=== PATIENT | male | born 1960 | race Caucasian/White ===

== ENCOUNTER 2016-08-19 22:47 | Emergency (ER) | payer BC ==
[2016-08-20 01:58] VITALS: BP 201/79
== END 2016-08-20 02:26 | disposition left against medical advice (07) ==
LOC: ER 22:47
DX: Z53.21 Procedure and treatment not carried out due to patient leaving prior to being seen by health care provider (principal)

== ENCOUNTER 2016-11-03 11:19 | Emergency (ER) | payer BC ==
[2016-11-03 11:32] VITALS: BP 159/65
[2016-11-03] MEDS ORDERED: ASPIRIN 81 MG TABLET, CHEWABLE PO ONE (11:36)
[2016-11-03] MEDS ORDERED: ONDANSETRON 4 MG TAB.RAPDIS PO ONE (11:37)
--- NOTE | 2016-11-03 11:38 | ER Document Report ---
ED Medical Screen (RME) - General Stated Complaint: CHEST PAIN Mode of Arrival: Ambulatory Information source: Patient Notes: Patient presents to the emergency department with reports of chest pain midsternal nausea that started this morning. History of diabetes denies cardiac disease. I have greeted and performed a rapid initial assessment of this patient. A comprehensive ED assessment and evaluation of the patient, analysis of test results and completion of the medical decision making process will be conducted by additional ED providers. TRAVEL OUTSIDE OF THE [place] IN LAST 30 DAYS: No - Related Data Allergies/Adverse Reactions: No Known Allergies Allergy (Verified 11/03/16 11:35) Past Medical History - Past Medical History Cardiac Medical History: Reports: Hx Hypercholesterolemia, Hx Hypertension Pulmonary Medical History: Endocrine Medical History: Reports: Hx Diabetes Mellitus Type 2 GI Medical History: Reports: Hx Gastroesophageal Reflux Disease, Hx Hiatal Hernia, Hx Ulcer - Gastric ulcer Skin Medical History: Reports Hx Cellulitis Psychiatric Medical History: Reports: Hx Anxiety Past Surgical History: Reports: Hx Cardiac Catheterization. Denies: Hx Pacemaker - Immunizations Immunizations up to date: Yes Hx Diphtheria, Pertussis, Tetanus Vaccination: Yes Physical Exam - Vital signs Vitals: Temp Pulse Resp BP Pulse Ox 97.9 F 89 18 159/65 H 97 11/03/16 11:31 11/03/16 11:31 11/03/16 11:31 11/03/16 11:31 11/03/16 11:31 Course - Vital Signs Vital signs: Temp Pulse Resp BP Pulse Ox 97.9 F 89 18 159/65 H 97 11/03/16 11:31 11/03/16 11:31 11/03/16 11:31 11/03/16 11:31 11/03/16 11:31
[2016-11-03 12:45] LABS: APPEARANCE,URINE CLEAR; BILIRUBIN,URINE NEGATIVE (NEGATIVE); GLUCOSE, URINE >=500 mg/dL (NEGATIVE); KETONES,URINE NEGATIVE (NEGATIVE); LEUKOCYTE ESTERASE,URINE NEGATIVE (NEGATIVE); NITRITE,URINE NEGATIVE (NEGATIVE); PROTEIN,URINE NEGATIVE (NEGATIVE); UROBILINOGEN,URINE NEGATIVE mg/dL (<2.0)
[2016-11-03 12:46] LABS: ABSOLUTE BASOPHILS # (AUTO) 0.1 10^3/uL (0.0-0.2); ABSOLUTE EOSINOPHILS # (AUTO) 0.3 10^3/uL (0.0-0.6); ABSOLUTE LYMPHOCYTES (AUTO) 4.4 10^3/uL (0.5-4.7); ABSOLUTE MONOCYTES (AUTO) 0.7 10^3/uL (0.1-1.4); ABSOLUTE NEUT (AUTO) 4.5 10^3/uL (1.7-8.2); BASOPHILS % (AUTO) 0.6 % (0-2); EOSINOPHILS % (AUTO) 2.8 % (0-6); HEMATOCRIT 45.7 % (37.9-51.0); HEMOGLOBIN 15.4 g/dL (13.5-17.0); HGB HCT DIFFERENCE 0.5; LYMPHOCYTES % (AUTO) 43.6 % (13-45); MEAN CORPUSCULAR HEMOGLOBIN 29.9 pg (27.0-33.4); MEAN CORPUSCULAR HGB CONC 33.8 g/dL (32.0-36.0); MEAN CORPUSCULAR VOLUME 88 fl (80-97); MONOCYTES % (AUTO) 7.4 % (3-13); RED BLOOD COUNT 5.17 10^6/uL (4.35-5.55); RED CELL DISTRIBUTION WIDTH 14.9 % (11.5-14.0); SEGMENTED NEUTROPHILS % (AUTO) 45.6 % (42-78)
[2016-11-03 13:01] LABS: ALANINE AMINOTRANSFERASE 27 U/L (21-72); ALBUMIN 4.3 g/dL (3.5-5.0); ALKALINE PHOSPHATASE 76 U/L (38-126); ANION GAP 12 (5-19); ASPARTATE AMINO TRANSFERASE 20 U/L (17-59); BILIRUBIN,DIRECT 0.2 mg/dL (0.0-0.4); BILIRUBIN,TOTAL 0.4 mg/dL (0.2-1.3); BLOOD UREA NITROGEN 13 mg/dL (7-20); CALCIUM 9.5 mg/dL (8.4-10.2); CARBON DIOXIDE 27 mmol/L (22-30); CHLORIDE 104 mmol/L (98-107); CREATINE KINASE 83 U/L (55-170); CREATININE RESULT 0.75 mg/dL (0.52-1.25); GLUCOSE 118 mg/dL (75-110); LIPASE 66.8 U/L (23-300); POTASSIUM 4.3 mmol/L (3.6-5.0); SODIUM 142.8 mmol/L (137-145); TOTAL PROTEIN 7.6 g/dL (6.3-8.2)
[2016-11-03 13:13] LABS: CREATINE KINASE MB 0.33 ng/mL (<4.55)
[2016-11-03 13:18] LABS: TROPONIN I < 0.012 ng/mL
--- NOTE | 2016-11-03 16:04 | EKG REPORT ---
SEVERITY:- NORMAL ECG - SINUS RHYTHM : Confirmed by: Luis Mary 03-Nov-2016 16:03:58
== END 2016-11-03 14:50 | disposition left against medical advice (07) ==
LOC: ER 11:19
DX: R07.9 Chest pain, unspecified (principal); R11.0 Nausea; I10 Essential (primary) hypertension; E11.9 Type 2 diabetes mellitus without complications; Z53.20 Procedure and treatment not carried out because of patient's decision for unspecified reasons
CPT/HCPCS: 93005; 99281; 36415; 82553; 82550; 83690; 85025; 80053; 81001; 84484; 71020; 93010; S0119

== ENCOUNTER 2017-01-07 15:18 | Emergency (ER) | payer BC ==
--- NOTE | 2017-01-07 16:06 | ER Document Report ---
ED Medical Screen (RME) - General Stated Complaint: POSSIBLE PALPITATIONS Time Seen by Provider: 01/07/17 16:03 Notes: 56 yo male c/o lightheaded, SOB and chest pressure x 1 hr. pain started while watching TV. pt had NSTEMI 2 weeks ago, stent placed in circumflex. + hx/o DM , HTN TRAVEL OUTSIDE OF THE [place] IN LAST 30 DAYS: No - Related Data Allergies/Adverse Reactions: No Known Allergies Allergy (Verified 11/03/16 11:35) Past Medical History - Past Medical History Cardiac Medical History: Reports: Hx Hypercholesterolemia, Hx Hypertension Pulmonary Medical History: Neurological Medical History: Endocrine Medical History: Reports: Hx Diabetes Mellitus Type 2 Renal/ Medical History: Denies: Hx Peritoneal Dialysis GI Medical History: Reports: Hx Gastroesophageal Reflux Disease, Hx Hiatal Hernia, Hx Ulcer - Gastric ulcer Musculoskeltal Medical History: Skin Medical History: Reports Hx Cellulitis Psychiatric Medical History: Reports: Hx Anxiety Past Surgical History: Reports: Hx Cardiac Catheterization. Denies: Hx Pacemaker - Immunizations Immunizations up to date: Yes Hx Diphtheria, Pertussis, Tetanus Vaccination: Yes
[2017-01-07 16:43] LABS: ABSOLUTE BASOPHILS # (AUTO) 0.1 10^3/uL (0.0-0.2); ABSOLUTE EOSINOPHILS # (AUTO) 0.4 10^3/uL (0.0-0.6); ABSOLUTE LYMPHOCYTES (AUTO) 3.5 10^3/uL (0.5-4.7); ABSOLUTE NEUT (AUTO) 6.4 10^3/uL (1.7-8.2); BASOPHILS % (AUTO) 1.2 % (0-2); EOSINOPHILS % (AUTO) 3.1 % (0-6); HEMATOCRIT 44.7 % (37.9-51.0); HEMOGLOBIN 14.7 g/dL (13.5-17.0); HGB HCT DIFFERENCE -0.6; LYMPHOCYTES % (AUTO) 30.5 % (13-45); MEAN CORPUSCULAR HEMOGLOBIN 28.9 pg (27.0-33.4); MEAN CORPUSCULAR HGB CONC 32.8 g/dL (32.0-36.0); MEAN CORPUSCULAR VOLUME 88 fl (80-97); MONOCYTES % (AUTO) 8.7 % (3-13); RED BLOOD COUNT 5.09 10^6/uL (4.35-5.55); RED CELL DISTRIBUTION WIDTH 14.5 % (11.5-14.0); SEGMENTED NEUTROPHILS % (AUTO) 56.5 % (42-78); WHITE BLOOD COUNT 11.4 10^3/uL (4.0-10.5)
--- NOTE | 2017-01-07 16:44 | RADIOLOGY REPORT (SQ) ---
EXAM DESCRIPTION: CHEST PA/LAT COMPLETED DATE/TIME: 01/07/2017 4:35 pm REASON FOR STUDY: chest pain COMPARISON: 11/03/2016. EXAM PARAMETERS: NUMBER OF VIEWS: two views TECHNIQUE: Digital Frontal and Lateral radiographic views of the chest acquired. RADIATION DOSE: NA LIMITATIONS: none FINDINGS: LUNGS AND PLEURA: No opacities, masses or pneumothorax. No pleural effusion. MEDIASTINUM AND HILAR STRUCTURES: No masses or contour abnormalities. HEART AND VASCULAR STRUCTURES: Heart normal size. No evidence for failure. BONES: No acute findings. HARDWARE: None in the chest. OTHER: No other significant finding. IMPRESSION: NO SIGNIFICANT RADIOGRAPHIC FINDING IN THE CHEST. TECHNICAL DOCUMENTATION: JOB ID: [id number] [employer]- All Rights Reserved
[2017-01-07 16:50] LABS: PROTHROMBIN TIME 12.5 SEC (11.4-15.4)
[2017-01-07 17:04] LABS: ALANINE AMINOTRANSFERASE 61 U/L (21-72); ALBUMIN 4.2 g/dL (3.5-5.0); ALKALINE PHOSPHATASE 118 U/L (38-126); ANION GAP 12 (5-19); ASPARTATE AMINO TRANSFERASE 24 U/L (17-59); BILIRUBIN,DIRECT 0.3 mg/dL (0.0-0.4); BILIRUBIN,TOTAL 0.5 mg/dL (0.2-1.3); BLOOD UREA NITROGEN 10 mg/dL (7-20); CALCIUM 9.5 mg/dL (8.4-10.2); CARBON DIOXIDE 22 mmol/L (22-30); CHLORIDE 102 mmol/L (98-107); CREATINE KINASE 61 U/L (55-170); CREATININE RESULT 0.62 mg/dL (0.52-1.25); GLUCOSE 231 mg/dL (75-110); LIPASE 71.5 U/L (23-300); POTASSIUM 4.5 mmol/L (3.6-5.0); TOTAL PROTEIN 7.5 g/dL (6.3-8.2)
[2017-01-07 17:17] LABS: APPEARANCE,URINE CLEAR; BILIRUBIN,URINE NEGATIVE (NEGATIVE); GLUCOSE, URINE 50 mg/dL (NEGATIVE); KETONES,URINE NEGATIVE (NEGATIVE); LEUKOCYTE ESTERASE,URINE NEGATIVE (NEGATIVE); NITRITE,URINE NEGATIVE (NEGATIVE); PROTEIN,URINE NEGATIVE (NEGATIVE); URINE SPECIFIC GRAVITY 1.013; UROBILINOGEN,URINE NEGATIVE mg/dL (<2.0)
[2017-01-07 17:19] LABS: CREATINE KINASE MB 0.34 ng/mL (<4.55)
[2017-01-07 17:20] LABS: TROPONIN I < 0.012 ng/mL
[2017-01-07] MEDS ORDERED: ASPIRIN 325 MG TABLET PO ONE (17:55)
--- NOTE | 2017-01-07 17:55 | ER Document Report ---
ED Cardiac - General Chief Complaint: Chest Pain Stated Complaint: POSSIBLE PALPITATIONS Time Seen by Provider: 01/07/17 16:03 Notes: Patient is a 56-year-old male, past medical history CAD status post one cardiac stent on 12/29 at [facility], HTN, anxiety, presents with a diffuse chest tightness , worse substernally, for the past day. He is also feeling palpitations and can feel an extra beat when he is having a PVC on the monitor. Pt is a tank cleaner. He had a stent placed in his left circumflex artery last week and is taking Brilinta for his stent. He did not take his ASA today yet. Denies back pain, numbness, tingling, diaphoresis, leg swelling, cough, hemoptysis, nausea or vomiting. TRAVEL OUTSIDE OF THE [place] IN LAST 30 DAYS: No - Related Data Allergies/Adverse Reactions: No Known Allergies Allergy (Verified 11/03/16 11:35) Past Medical History - General Information source: Patient - Social History Smoking Status: Former Smoker Chew tobacco use (# tins/day): No Frequency of alcohol use: None Drug Abuse: None Family History: CAD Patient has suicidal ideation: No Patient has homicidal ideation: No - Past Medical History Cardiac Medical History: Reports: Hx Hypercholesterolemia, Hx Hypertension Pulmonary Medical History: Neurological Medical History: Endocrine Medical History: Reports: Hx Diabetes Mellitus Type 2 Renal/ Medical History: Denies: Hx Peritoneal Dialysis GI Medical History: Reports: Hx Gastroesophageal Reflux Disease, Hx Hiatal Hernia, Hx Ulcer - Gastric ulcer Musculoskeltal Medical History: Skin Medical History: Reports Hx Cellulitis Psychiatric Medical History: Reports: Hx Anxiety Past Surgical History: Reports: Hx Cardiac Catheterization. Denies: Hx Pacemaker - Immunizations Immunizations up to date: Yes Hx Diphtheria, Pertussis, Tetanus Vaccination: Yes Review of Systems - Review of Systems Notes: REVIEW OF SYSTEMS: CONSTITUTIONAL: -fevers, -chills EENT: -eye pain, -difficulty swallowing, -nasal congestion CARDIOVASCULAR: +chest pain, -syncope. RESPIRATORY: -cough, -SOB GASTROINTESTINAL: -abdominal pain, - nausea, -vomiting, -diarrhea GENITOURINARY: -dysuria, -hematuria MUSCULOSKELETAL: -back pain, -neck pain SKIN: -rash or skin lesions. HEMATOLOGIC: -easy bruising or bleeding. LYMPHATIC: -swollen, enlarged glands. NEUROLOGICAL: -altered mental status or loss of consciousness, -headache, - neurologic symptoms PSYCHIATRIC: -anxiety, -depression. ALL OTHER SYSTEMS REVIEWED AND NEGATIVE. Physical Exam - Vital signs Vitals: Temp Pulse Resp BP Pulse Ox 98.4 F 93 17 180/72 H 99 01/07/17 16:01 01/07/17 16:01 01/07/17 16:01 01/07/17 16:01 01/07/17 16:01 - Notes Notes: PHYSICAL EXAMINATION: GENERAL: Well-appearing, well-nourished and in no acute distress. HEAD: Atraumatic, normocephalic. EYES: Pupils equal round and reactive to light, extraocular movements intact, sclera anicteric, conjunctiva are normal. ENT: nares patent, oropharynx clear without exudates. Moist mucous membranes. NECK: Normal range of motion, supple without lymphadenopathy LUNGS: Breath sounds clear to auscultation bilaterally and equal. No wheezes rales or rhonchi. HEART: Regular rate and rhythm without murmurs ABDOMEN: Soft, nontender, normoactive bowel sounds. No guarding, no rebound. No masses appreciated. EXTREMITIES: Normal range of motion, no pitting or edema. No cyanosis. NEUROLOGICAL: Cranial nerves grossly intact. Normal speech, normal gait. Normal sensory and motor exams. PSYCH: Normal mood, normal affect. SKIN: Warm, Dry, normal turgor, no rashes or lesions noted. Course - Re-evaluation Re-evalutation: Pt with HEART score 3 (age=1, risk factors=2). Symptoms atypical for aortic dissection or PE at this time. 2 sets of troponins and 2 EKGs do not show any dynamic changes. 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 Offered admission, but patient said that he will follow-up with the new autos delivery driver tomorrow. Given strict return precautions and he understands. - Vital Signs Vital signs: Temp Pulse Resp BP Pulse Ox 98.3 F 77 15 120/65 100 01/07/17 19:00 01/07/17 19:00 01/07/17 20:01 01/07/17 20:01 01/07/17 20:01 - Laboratory Result Diagrams: 01/07/17 16:25 01/07/17 16:25 Laboratory results interpreted by me: 01/07/17 01/07/17 01/07/17 16:25 16:25 16:50 WBC 11.4 H RDW 14.5 H Sodium 136.0 L Glucose 231 H Urine Glucose (UA) 50 H - Diagnostic Test Radiology reviewed: Image reviewed, Reports reviewed Radiology results interpreted by me: CXR: NAD - EKG Interpretation by Me EKG shows normal: Sinus rhythm, Grandin, Intervals, QRS Complexes, ST-T Waves Rate: Normal Discharge - Discharge Clinical Impression: Chest pain Qualifiers: Chest pain type: unspecified Qualified Code(s): R07.9 - Chest pain, unspecified Condition: Stable Disposition: HOME, SELF-CARE Additional Instructions: You must follow-up with your new autos delivery driver tomorrow as scheduled. If you have worsening chest pain or any other concerns, return immediately to the emergency room. CHEST PAIN OF UNCLEAR CAUSE: The exact cause of your chest pain isn't clear. Fortunately, there is no evidence of a dangerous medical condition. Further testing may be required to find the source of the pain. Most often, we find that this pain is coming from the chest wall -- the muscles or rib joints in the chest. But chest pain can come from the lung and lung lining, the esophagus, the heart valves or heart lining, and even the stomach or gallbladder. Rest. Eat lightly until the pain is gone. We may prescribe medicine for pain and inflammation. You should call the physician immediately if the pain radiates to the shoulder, jaw or arms; if you start to run a fever or develop a cough; or if you develop shortness of breath, or other new or alarming symptoms. NORMAL EXAM AND WORKUP: At this time, your examination and workup show no significant abnormality. No significant abnormal physical findings were noted. All laboratory, EKG, and imaging (x-ray, CT scans, ultrasound) studies that were ordered show no significant abnormality. Although your examination and all studies that were ordered showed no significant abnormal finding, there are no examinations and no studies that are 100% accurate. There is always the possibility that some abnormality could exist and not be detected with physical examination or within the limits and capabilities of laboratory and other studies. You should return or follow up as you were instructed on your visit today for further evaluation if your symptoms do not resolve. CHEST WALL PAIN: Your chest pain may be coming from the chest wall. This is often caused by straining the muscles or joints in the chest during physical activity, direct trauma, coughing, or vigorous vomiting. Persons with arthritis are especially prone to this type of pain, due to inflammation of the cartilage joints near the breast bone. Occasionally, no cause can be found. Rest from strenuous physical activity. This kind of chest pain is usually made worse by movement of the chest. Depending on the symptoms, we may prescribe medicine for pain, muscle relaxation, and antiinflammatory effects. If the pain is new, and seems to be due to muscle strain, cold packs can help. Otherwise, apply gentle warmth to the painful area for 15 minutes every hour or two. You should call contact the doctor immediately if things change. Further evaluation is needed if you develop a fever or cough, if the nature of the pain changes, or if you become short of breath. ANGINA EPISODE: Your physician has diagnosed the pain you experienced as an episode of angina. Angina occurs when a portion of the heart muscle temporarily lacks oxygen. It does not cause any permanent heart damage, but serves as a warning. Hospitalization is not necessary now. Evaluation of your cardiac condition , and medical therapy for angina will be necessary. It's important you be sure to keep all appointments and take medication exactly as prescribed. Angina is usually treated with a type of "nitrate" medication. This is available as ointment, pills, or sublingual (under the tongue) tablets. Depending on your clinical situation, other medications may be added to help control angina. These may include beta blockers or calcium blockers. If episodes of angina are occurring with increased frequency, or if chest pain lasts longer than 15 minutes or does not respond to nitroglycerin, you must seek emergency medical care immediately. ASPIRIN: Aspirin has been shown to have a beneficial effect on blood circulation by reducing the clotting effect of platelets in the blood. These beneficial effects can be achieved by taking just a single baby (81 mg) aspirin a day. It is recommended that any person over the age of forty take a single baby aspirin every day for heart and brain circulation, unless you are allergic to aspirin or have some significant bleeding disorder. It is strongly recommended that people who have proven cardiac or blood circulation disturbances should take a baby aspirin every day. NITRATES: Nitroglycerin and related longer-acting nitrate medications are used to prevent or treat attacks of angina. These medicines dilate blood vessels, decreasing the work of the heart, and improving its supply of oxygen. Many different forms are available, including sublingual tablets (used under the tongue), sprays, skin patches, and long-acting pills. If the particular form of medication you have been given is not working well for you, contact your doctor. Long-acting forms: Take exactly as prescribed. Sudden stopping of medication can provoke increased attacks. Sublingual tabs or spray: A headache will usually occur with use. Sit or lie while waiting for the pain to go away. If angina doesn't respond to three doses (five minutes apart), call for emergency assistance. FOLLOW-UP CARE: If you have been referred to a physician for follow-up care, call the physician s office for an appointment as you were instructed or within the next two days. If you experience worsening or a significant change in your symptoms, notify the physician immediately or return to the Emergency Department at any time for re-evaluation. Referrals: REBEKAH WAY MD [Primary Care Provider] - Follow up as needed
[2017-01-07] MEDS: NITROGLYCERIN 0.4 MG/TAB 25 TAB/BOTTLE SL PRN ×2 (18:21→18:35)
[2017-01-07] MEDS ORDERED: ACETAMINOPHEN 325 MG TABLET PO ONE (18:37)
[2017-01-08 05:00] VITALS: BP 124/58
--- NOTE | 2017-01-08 09:57 | EKG REPORT ---
SEVERITY:- NORMAL ECG - SINUS RHYTHM : Confirmed by: Luis Mary 08-Jan-2017 09:56:45
--- NOTE | 2017-01-08 09:57 | EKG REPORT ---
SEVERITY:- NORMAL ECG - SINUS RHYTHM : Confirmed by: Luis Mary 08-Jan-2017 09:56:49
== END 2017-01-07 21:00 | disposition home or self-care (01) ==
LOC: ER 15:18
DX: R07.89 Other chest pain (principal); I25.10 Atherosclerotic heart disease of native coronary artery without angina pectoris; I10 Essential (primary) hypertension; I49.3 Ventricular premature depolarization; E11.9 Type 2 diabetes mellitus without complications; Z98.61 Coronary angioplasty status; Z87.891 Personal history of nicotine dependence; Z82.49 Family history of ischemic heart disease and other diseases of the circulatory system
CPT/HCPCS: 36415; 71020; 80053; 81001; 82550; 82553; 83690; 84484; 85025; 85610; 93005; 93010; 99285

== ENCOUNTER 2017-06-26 20:28 | Inpatient (IN) | payer BC ==
[2017-06-26] MEDS ORDERED: PIPERACILLIN/TAZOBACTAM 3.375 GM VIAL IV ONE (20:49)
[2017-06-26] MEDS ORDERED: VANCOMYCIN HCL INJ 1000 MG VIAL IV ONE ×2 (20:49→22:58)
[2017-06-26] MEDS ORDERED: HYDROCODONE/ACETAMINOPHEN 5-325 MG TABLET PO ONE (20:49)
--- NOTE | 2017-06-26 21:02 | ER Document Report ---
ED Medical Screen (RME) - General Mode of Arrival: Ambulatory Information source: Patient TRAVEL OUTSIDE OF THE [place] IN LAST 30 DAYS: No - General Chief Complaint: Wound Infection Stated Complaint: RIGHT THIGH PAIN Time Seen by Provider: 06/26/17 20:42 Notes: Patient is a 57 year old male with a history of [place] presents to emergency department complaining of right thigh pain. Patient states that he gave himself a testosterone shot this week. Patient states that he saw Dr. Paulino who had given him Rocephin and Levoxacin for his symptoms which did not help. Patient states he is currently taking Plavix and Aspirin. (SARTHAK,TAMPAT) - Related Data Allergies/Adverse Reactions: No Known Allergies Allergy (Verified 11/03/16 11:35) Past Medical History - General Information source: Patient - Social History Frequency of alcohol use: None Drug Abuse: None - Past Medical History Cardiac Medical History: Reports: Hx Hypercholesterolemia, Hx Hypertension Pulmonary Medical History: Neurological Medical History: Endocrine Medical History: Reports: Hx Diabetes Mellitus Type 2 Renal/ Medical History: Denies: Hx Peritoneal Dialysis GI Medical History: Reports: Hx Gastroesophageal Reflux Disease, Hx Hiatal Hernia, Hx Ulcer - Gastric ulcer Musculoskeltal Medical History: Skin Medical History: Reports Hx Cellulitis Psychiatric Medical History: Reports: Hx Anxiety Past Surgical History: Reports: Hx Cardiac Catheterization. Denies: Hx Pacemaker - Immunizations Immunizations up to date: Yes Hx Diphtheria, Pertussis, Tetanus Vaccination: Yes Review of Systems - Review of Systems Constitutional: No symptoms reported EENT: No symptoms reported Cardiovascular: No symptoms reported Respiratory: No symptoms reported Gastrointestinal: No symptoms reported Genitourinary: No symptoms reported Male Genitourinary: No symptoms reported Musculoskeletal: Other - Pain in right thigh Skin: No symptoms reported Hematologic/Lymphatic: No symptoms reported Neurological/Psychological: No symptoms reported -: Yes All other systems reviewed and negative Physical Exam - General General appearance: Appears well, Alert In distress: None - HEENT Head: Normocephalic, Atraumatic Pupils: PERRL - Extremities Thigh: Other - Right anterior thigh swollen and erythematous. Tender to palpation. Firm without fluctuance or SubQ emphysema. - Psychological Associated symptoms: Normal affect, Normal mood - Skin Skin Temperature: Warm Skin Moisture: Dry - Vital signs Vitals: Temp Pulse Resp BP Pulse Ox 98.9 F 111 H 16 174/51 H 99 11/17/17 20:34 06/26/17 20:34 06/26/17 20:34 06/26/17 20:34 06/26/17 20:34 - Vital Signs Vital signs: Temp Pulse Resp BP Pulse Ox 98.9 F 111 H 16 174/51 H 99 06/26/17 20:34 06/26/17 20:34 06/26/17 20:34 06/26/17 20:34 06/26/17 20:34 Scribe Documentation - Scribe Written by Yaakov:: Yaakov Myers, 06/26/2017 acting as scribe for :: Tiffanie
[2017-06-26 21:40] LABS: ABSOLUTE BASOPHILS # (AUTO) 0.1 10^3/uL (0.0-0.2); ABSOLUTE EOSINOPHILS # (AUTO) 0.3 10^3/uL (0.0-0.6); ABSOLUTE LYMPHOCYTES (AUTO) 4.4 10^3/uL (0.5-4.7); ABSOLUTE NEUT (AUTO) 9.5 10^3/uL (1.7-8.2); BASOPHILS % (AUTO) 0.7 % (0-2); HEMATOCRIT 44.5 % (37.9-51.0); HGB HCT DIFFERENCE 0.5; LYMPHOCYTES % (AUTO) 28.5 % (13-45); MEAN CORPUSCULAR HEMOGLOBIN 29.5 pg (27.0-33.4); MEAN CORPUSCULAR HGB CONC 33.8 g/dL (32.0-36.0); MEAN CORPUSCULAR VOLUME 87 fl (80-97); MONOCYTES % (AUTO) 6.5 % (3-13); RED CELL DISTRIBUTION WIDTH 14.5 % (11.5-14.0); SEGMENTED NEUTROPHILS % (AUTO) 62.3 % (42-78); WHITE BLOOD COUNT 15.3 10^3/uL (4.0-10.5)
[2017-06-26 21:43] LABS: PROTHROMBIN TIME 12.8 SEC (11.4-15.4)
[2017-06-26 21:44] LABS: PARTIAL THROMBOPLASTIN TIME 32.8 SEC (23.5-35.8)
[2017-06-26 21:54] LABS: ALANINE AMINOTRANSFERASE 39 U/L (21-72); ALBUMIN 4.3 g/dL (3.5-5.0); ALKALINE PHOSPHATASE 91 U/L (38-126); ANION GAP 17 (5-19); ASPARTATE AMINO TRANSFERASE 23 U/L (17-59); BILIRUBIN,DIRECT 0.5 mg/dL (0.0-0.4); BILIRUBIN,TOTAL 0.7 mg/dL (0.2-1.3); BLOOD UREA NITROGEN 17 mg/dL (7-20); CALCIUM 9.4 mg/dL (8.4-10.2); CARBON DIOXIDE 25 mmol/L (22-30); CHLORIDE 96 mmol/L (98-107); CREATININE RESULT 0.96 mg/dL (0.52-1.25); GLUCOSE 313 mg/dL (75-110); POTASSIUM 4.5 mmol/L (3.6-5.0); SODIUM 138.3 mmol/L (137-145); TOTAL PROTEIN 7.5 g/dL (6.3-8.2)
--- NOTE | 2017-06-26 22:40 | RADIOLOGY REPORT (SQ) ---
EXAM DESCRIPTION: CT RT LOWER EXTREMITY WITH COMPLETED DATE/TIME: 06/26/2017 10:30 pm REASON FOR STUDY: red, swollen, hot, firm ant thigh, ?abscess COMPARISON: None. TECHNIQUE: Axial imaging performed through the right thigh with reformatted coronal and sagittal dayo ging windowed for bone and soft tissues. Images saved to PACS. 3D IMAGING: Were 3D images as MIP, SSD, or volume rendering performed at the work station? No. All CT scanners at this facility use dose modulation, iterative reconstruction, and/or weight based d osing when appropriate to reduce radiation dose to as low as reasonably achievable (ALARA). [facility]: Dose Right [facility]: CareDose [facility]: Dose Right [facility]: Teradose 4D [facility]: [employer] LIMITATIONS: None. RADIATION DOSE: Up-to-date CT equipment and radiation dose reduction techniques were employed. CTDIv ol: 10.2 mGy. DLP: 655 mGy-cm. mGy. FINDINGS: SOFT TISSUES: Diffuse subcutaneous edema with more focal fluid anterior mid to distal thig h best seen on series 5, image 61 and series 602 image 22. No definite abscess identified. Deeper s oft tissues are grossly normal. BONES: No acute fracture. No dislocation. MINERALIZATION: Normal. OTHER: No other significant finding. IMPRESSION: NO ACUTE OSSEOUS ABNORMALITY. DIFFUSE SUBCUTANEOUS EDEMA WITH MORE FOCAL FLUID ANTERIOR MID THIGH. NO DEFINITE ABSCESS IDENTIFIED. TECHNICAL DOCUMENTATION: JOB ID: [id number] Quality ID # [id number]: Final reports with documentation of one or more dose reduction techniques (e.g., Au tomated exposure control, adjustment of the mA and/or kV according to patient size, use of iterative reconstruction technique) 2010 [employer]- All Rights Reserved
[2017-06-26] MEDS ORDERED: NORMAL SALINE 1000 ML 1,000 ML IV ONE (23:04)
[2017-06-26] MEDS ORDERED: MORPHINE SULFATE 10 MG/ML INJ IV PRN (23:04)
--- NOTE | 2017-06-26 23:16 | ER Document Report ---
ED General - General Chief Complaint: Wound Infection Stated Complaint: RIGHT THIGH PAIN Time Seen by Provider: 06/26/17 20:42 Mode of Arrival: Ambulatory Notes: Patient is a 57-year-old male with a past medical history of known coronary artery disease, hypertension, insulin-dependent diabetes, who presents with approximately 1 week of progressively worsening erythema and pain to the right thigh. Patient does give himself testosterone injections states 2-3 days after the last injection he developed progressively worsening erythema and pain to the injection site. He saw his primary care doctor who put started him on levofloxacin and gave him a dose of ceftriaxone. He states that this has not improved feels they have actually significantly worse in particular last several days. Notes the pain to the thigh is a severe, constant, throbbing pain. Touching the area or moving the leg worsens the pain. Nothing improves the pain. He has no history of similar symptoms in the past. He has not had a fever at home but states he has felt generally fatigued and achy. TRAVEL OUTSIDE OF THE [place] IN LAST 30 DAYS: No - Related Data Allergies/Adverse Reactions: No Known Allergies Allergy (Verified 11/03/16 11:35) Past Medical History - General Information source: Patient - Social History Smoking Status: Never Smoker Frequency of alcohol use: None Drug Abuse: None Lives with: Spouse/Significant other Family History: CAD Patient has suicidal ideation: No Patient has homicidal ideation: No - Past Medical History Cardiac Medical History: Reports: Hx Hypercholesterolemia, Hx Hypertension Pulmonary Medical History: Neurological Medical History: Endocrine Medical History: Reports: Hx Diabetes Mellitus Type 2 Renal/ Medical History: Denies: Hx Peritoneal Dialysis GI Medical History: Reports: Hx Gastroesophageal Reflux Disease, Hx Hiatal Hernia, Hx Ulcer - Gastric ulcer Musculoskeltal Medical History: Skin Medical History: Reports Hx Cellulitis Psychiatric Medical History: Reports: Hx Anxiety Past Surgical History: Reports: Hx Cardiac Catheterization. Denies: Hx Pacemaker - Immunizations Immunizations up to date: Yes Hx Diphtheria, Pertussis, Tetanus Vaccination: Yes Review of Systems - Review of Systems Notes: Constitutional: Negative for fever. HENT: Negative for sore throat. Eyes: Negative for visual changes. Cardiovascular: Negative for chest pain. Respiratory: Negative for shortness of breath. Gastrointestinal: Negative for abdominal pain, vomiting or diarrhea. Genitourinary: Negative for dysuria. Musculoskeletal: Positive for thigh pain Skin: Positive for rash. Neurological: Negative for headaches, weakness or numbness. 10 point ROS negative except as marked above and in HPI. Physical Exam - Vital signs Vitals: Temp Pulse Resp BP Pulse Ox 98.9 F 111 H 16 174/51 H 99 06/26/17 20:34 06/26/17 20:34 06/26/17 20:34 06/26/17 20:34 06/26/17 20:34 Interpretation: Hypertensive, Tachycardic Notes: PHYSICAL EXAMINATION: GENERAL: Appears moderately uncomfortable but no acute distress HEAD: Atraumatic, normocephalic. EYES: Pupils equal round and reactive to light, extraocular movements intact, sclera anicteric, conjunctiva are normal. ENT: nares patent, oropharynx clear without exudates. Moist mucous membranes. NECK: Normal range of motion, supple without lymphadenopathy LUNGS: Breath sounds clear to auscultation bilaterally and equal. No wheezes rales or rhonchi. HEART: Regular tachycardia without murmurs ABDOMEN: Soft, nontender, normoactive bowel sounds. No guarding, no rebound. No masses appreciated. EXTREMITIES: There is prominent swelling and erythema to the right central thigh that spreads towards the inguinal crease and down to just above the level of patella. NEUROLOGICAL: No focal neurological deficits. Moves all extremities spontaneously and on command. PSYCH: Normal mood, normal affect. SKIN: Warm, Dry, normal turgor, cellulitis as above Course - Re-evaluation Re-evalutation: 06/26/17 23:13 Patient presents with sepsis secondary to a prominent cellulitis of the right thigh. There is significantly indurated, exquisitely painful to palpation. CT does show diffuse edema but no evidence of a distinct abscess or fluid collection. Laboratories demonstrate a leukocytosis of 15.2. Patient did present tachycardic at 111 bpm but no fever. Patient to receive Zosyn in triage as well as 1 g of vancomycin which is under dosing and will receive an additional 1 g at this time. Patient is also hyperglycemic but has no evidence of diabetic ketoacidosis. Patient has been on levofloxacin as an outpatient which would not be the appropriate antibiotic for a soft tissue infection. However, given his leukocytosis, tachycardia, and insulin-dependent diabetes, I do not believe that we should continue to try outpatient therapy and that he should instead be admitted to the hospital on IV broad-spectrum antibiotics. I discussed with Dr. Tate who agrees and is except with the patient for admission. - Vital Signs Vital signs: Temp Pulse Resp BP Pulse Ox 98.0 F 101 H 16 135/54 H 97 06/27/17 00:05 06/27/17 00:05 06/27/17 00:05 06/27/17 00:05 06/27/17 00:05 - Laboratory Result Diagrams: 06/26/17 21:16 06/26/17 21:16 Laboratory results interpreted by me: 06/26/17 06/26/17 06/26/17 21:15 21:16 21:16 WBC 15.3 H RDW 14.5 H Absolute Neutrophils 9.5 H Chloride 96 L Glucose 313 H Direct Bilirubin 0.5 H Creatine Kinase 242 H - Diagnostic Test Radiology reviewed: Reports reviewed Discharge - Discharge Clinical Impression: Cellulitis of leg, right Diabetes Qualifiers: Diabetes mellitus type: type 2 Diabetes mellitus complication status: with skin complications Diabetes mellitus complication detail: with other skin complication Diabetes mellitus local company intermodal truck driver insulin use: with [facility]ci use Qualified Code(s): E11.628 - Type 2 diabetes mellitus with other skin complications Sepsis Qualifiers: Sepsis type: sepsis due to unspecified organism Qualified Code(s): A41.9 - Sepsis, unspecified organism Condition: Fair Disposition: ADMITTED INPATIENT Admitting Provider: Shane Tate Unit Admitted: [facility]
[2017-06-26] MEDS ORDERED: ZOLPIDEM TARTRATE 5 MG TABLET PO PRN (23:39)
[2017-06-26] MEDS ORDERED: MAG HYDROX/AL HYDROX/SIMETH SUSP 30 ML UDCUP PO PRN (23:39)
[2017-06-26] MEDS ORDERED: ONDANSETRON HCL INJ/PF 4 MG/2 ML SDV IV PRN (23:39)
[2017-06-26] MEDS ORDERED: PROMETHAZINE HCL 25 MG SUPP.RECT PR PRN (23:39)
[2017-06-26] MEDS ORDERED: DEXTROSE 50%-WATER 25 GM/50 ML DISP.SYRIN IV PRN ×2 (23:44)
[2017-06-26] MEDS ORDERED: GLUCAGON,HUMAN RECOMB 1 MG INJ IM PRN (23:44)
[2017-06-26] MEDS ORDERED: DEXTROSE 40% GEL 15 GM TUBE PO PRN ×2 (23:44)
[2017-06-26] MEDS ORDERED: VANCOMYCIN HCL 0 MG in DEXTROSE 5%-WATER 250 ML IV NR (23:45)
[2017-06-27] MEDS ORDERED: PIPERACILLIN SODIUM/TAZOBACTAM 4.5 GM in NORMAL SALINE 100 ML IV ONE (00:15)
--- NOTE | 2017-06-27 00:22 | PDOC H&P ---
History of Present Illness Admission Date/PCP: 06/26/17 23:[address] History of Present Illness: BENSON SIMMONS is a 57 year old male with a past medical history of diabetes mellitus type 1.5, BPH, benign bladder mass removal, hypertension, GERD , neuropathy, hyperlipidemia, and recent non-STEMI, with hypogonadism on testosterone replacement who presents with cellulitis of the right lower extremity. Patient reports that he did his testosterone injection on Thursday and on Thursday began having pain and redness of the area. He reports he went to Dr. Way's office and received Toradol, Rocephin, and a prescription for Levaquin. He does report associated fevers, chills, and nausea. He also reports his blood sugar has been in the 300s+. Patient reports that the erythema continued to worsen and became indurated as well as streaking up his thigh. He is referred to hospital service for sepsis with cellulitis. Past Medical History Past Medical History: diabetes mellitus type 1.5, BPH, benign bladder mass removal, hypertension, GERD , neuropathy, hyperlipidemia, and recent non-STEMI, with hypogonadism on testosterone replacement Cardiac Medical History: Reports: Myocardial Infarction, Hyperlipidema, Hypertension Pulmonary Medical History: Neurological Medical History: Endocrine Medical History: Reports: Diabetes Mellitus Type 2, Obesity GI Medical History: Reports: Gastroesophageal Reflux Disease, Hiatal Hernia Musculoskeltal Medical History: Psychiatric Medical History: Hematology: Denies: Anemia Past Surgical History Past Surgical History: Reports: Cardiac Catheterization, Other - Benign bladder mass removal Denies: Pacemaker Social History Smoking Status: Former Smoker - Quit smoking approximately couple months ago Frequency of Alcohol Use: None Hx Recreational Drug Use: No Hx Prescription Drug Abuse: No - Advance Directive Resuscitation Status: Full Code Surrogate healthcare decision maker:: Benson Simmons [place], son Family History Family History: CAD Parental Family History Reviewed: Yes Children Family History Reviewed: Yes Sibling(s) Family History Reviewed.: Yes Medication/Allergy Home Medications: Aspirin [Aspirin 81 mg Chewable Tablet] 81 mg PO DAILY 09/08/11 Insulin Glargine,Hum.rec.anlog [Lantus] 25 unit SQ QHS 09/08/11 Losartan Potassium [Cozaar 25 mg Tablet] 50 mg PO DAILY 09/08/11 Metoprolol Tartrate [Lopressor 50 mg Tablet] 50 mg PO QHS 09/08/11 Metoprolol Tartrate [Lopressor 50 mg Tablet] 75 mg PO QAM 09/08/11 Glimepiride [Amaryl 4 mg Tablet] 8 mg PO QHS 10/15/12 Metformin HCl [Glucophage XR 500 mg Tablet] 1,000 mg PO BID 10/15/12 Tamsulosin HCl [Flomax 0.4 mg Cap.sr] 0.4 mg PO DAILY #7 cap.sr.24h 03/15/13 Insulin Glargine,Hum.rec.anlog [Lantus] 45 units SUBCUT QA 06/10/15 Allergies/Adverse Reactions: No Known Allergies Allergy (Verified 11/03/16 11:35) Review of Systems Constitutional: PRESENT: chills, fever(s). ABSENT: headache(s), weight gain, weight loss Eyes: ABSENT: visual disturbances Ears: ABSENT: hearing changes Cardiovascular: ABSENT: chest pain, dyspnea on exertion, edema, orthropnea, palpitations Respiratory: ABSENT: cough, hemoptysis Gastrointestinal: PRESENT: nausea. ABSENT: abdominal pain, constipation, diarrhea, hematemesis, hematochezia, melena, vomiting Genitourinary: ABSENT: dysuria, hematuria Musculoskeletal: ABSENT: joint swelling Integumentary: PRESENT: as per HPI, erythema, rash. ABSENT: wounds Neurological: ABSENT: abnormal gait, abnormal speech, confusion, dizziness, focal weakness, syncope Psychiatric: ABSENT: anxiety, depression, homidical ideation, suicidal ideation Endocrine: ABSENT: cold intolerance, heat intolerance, polydipsia, polyuria Hematologic/Lymphatic: ABSENT: easy bleeding, easy bruising Physical Exam Vital Signs: Temp Pulse Resp BP Pulse Ox 98.0 F 101 H 16 135/54 H 97 06/27/17 00:05 06/27/17 00:05 06/27/17 00:05 06/27/17 00:05 06/27/17 00:05 General appearance: PRESENT: mild distress, obese, well-developed, well- nourished Head exam: PRESENT: atraumatic, normocephalic Eye exam: PRESENT: conjunctiva pink, EOMI, PERRLA. ABSENT: scleral icterus Ear exam: PRESENT: normal external ear exam Mouth exam: PRESENT: dry mucosa, tongue midline Neck exam: ABSENT: JVD, lymphadenopathy, thyromegaly, tracheal deviation Respiratory exam: PRESENT: clear to auscultation gurjit, symmetrical, unlabored. ABSENT: crackles, rales, rhonchi, tachypnea, wheezes Cardiovascular exam: PRESENT: RRR, +S1, +S2. ABSENT: diastolic murmur, gallop, rubs, systolic murmur Pulses: PRESENT: normal dorsalis pedis pul Vascular exam: PRESENT: normal capillary refill GI/Abdominal exam: PRESENT: normal bowel sounds, soft. ABSENT: distended, firm , guarding, mass, organolmegaly, rebound, tenderness Rectal exam: PRESENT: deferred Extremities exam: PRESENT: full ROM. ABSENT: calf tenderness, clubbing, pedal edema Neurological exam: PRESENT: alert, awake, oriented to person, oriented to place , oriented to time, oriented to situation, CN II-XII grossly intact. ABSENT: motor sensory deficit Psychiatric exam: PRESENT: appropriate affect, normal mood. ABSENT: homicidal ideation, suicidal ideation Skin exam: PRESENT: dry, erythema - Entire right thigh with area of induration but no overt abscess, rash, warm. ABSENT: cyanosis Results Laboratory Results: 06/26/17 06/26/17 06/26/17 21:16 21:16 21:16 WBC 15.3 H Hgb 15.0 Hct 44.5 Plt Count 298 INR 0.90 Sodium 138.3 Potassium 4.5 Chloride 96 L Carbon Dioxide 25 Anion Gap 17 BUN 17 Creatinine 0.96 Glucose 313 H Calcium 9.4 Total Bilirubin 0.7 Direct Bilirubin 0.5 H AST 23 ALT 39 Alkaline Phosphatase 91 Total Protein 7.5 Albumin 4.3 Impressions: Lower Extremity CT 06/26/17 20:49 IMPRESSION: NO ACUTE OSSEOUS ABNORMALITY. DIFFUSE SUBCUTANEOUS EDEMA WITH MORE FOCAL FLUID ANTERIOR MID THIGH. NO DEFINITE ABSCESS IDENTIFIED. Status: Imported from PACS Assessment & Plan - Diagnosis (1) Sepsis Qualifiers: Sepsis type: sepsis due to unspecified organism Qualified Code(s): A41.9 - Sepsis, unspecified organism Is this a current diagnosis for this admission?: Yes Plan: Concern for staphylococcal and streptococcal organisms, but given that this was in association with a deep muscle injection have concerns for anaerobic bacteria as well. Secondary to patient's cellulitis. Present on admission. Selected Entries 06/26/17 20:34 Pulse Rate [ 111 H Right Peripheral] 06/26/17 21:16 WBC 15.3 H Maintain map greater than 65. Give additional fluid boluses. (2) Cellulitis of leg, right Is this a current diagnosis for this admission?: Yes Plan: Place patient on vancomycin and Zosyn. 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 Blood cultures are pending. Morphine and Percocet as needed pain. Patient failed outpatient antibiotic therapy with Rocephin/Levaquin. Patient requires inpatient hospitalization for IV antibiotic therapy. (3) Coronary artery disease Qualifiers: Coronary Disease-Associated Artery/Lesion type: unspecified vessel or lesion type [place] vs. transplanted heart: [place] heart Associated angina: with unspecified angina Qualified Code(s): I25.119 - Atherosclerotic heart disease of [place] coronary artery with unspecified angina pectoris Is this a current diagnosis for this admission?: Yes Plan: Continue aspirin, Plavix, Cozaar, and metoprolol. Monitor patient on telemetry (4) Hypogonadism in male Is this a current diagnosis for this admission?: Yes Plan: Will check a free testosterone and a total testosterone in the morning as well as a luteinizing hormone. At this time, I feel that the continued use of testosterone in this patient is inappropriate as patient has BPH, and has had a recent non-STEMI. According to the FDA and the endocrine Society, they have issued statements alerting clinicians to the potential hazards of testosterone therapy and cardiovascular safety and have required a new label for increased risk of myocardial infarction and stroke. I have informed of this and encouraged him to follow with his cleaner assistant for this. (5) BPH (benign prostatic hyperplasia) Qualifiers: Lower urinary tract symptom presence: symptoms present Lower urinary tract symptom detail: unspecified Qualified Code(s): N40.1 - Benign prostatic hyperplasia with lower urinary tract symptoms Is this a current diagnosis for this admission?: Yes Plan: Continue Flomax. Patient reports he has significant symptomatology without this. This is a relative contraindication to the use of testosterone, as BPH is a testosterone driven condition. (6) Diabetes Qualifiers: Diabetes mellitus type: type 2 Diabetes mellitus complication status: with skin complications Diabetes mellitus complication detail: with other skin complication Diabetes mellitus termite exterminator helper insulin use: with penitentiary use Qualified Code(s): E11.628 - Type 2 diabetes mellitus with other skin complications; Z79.4 - parts counterman (current) use of insulin; Z79.4 - parts counterman ( current) use of insulin; Z79.4 - parts counterman (current) use of insulin; Z79.4 - halfway (current) use of insulin Is this a current diagnosis for this admission?: Yes Plan: Place patient on sliding scale insulin in addition to home Lantus. Diabetic diet. Continue metformin and glimepiride (7) Hypertension Qualifiers: Hypertension type: essential hypertension Qualified Code(s): I10 - Essential (primary) hypertension Is this a current diagnosis for this admission?: Yes Plan: Will continue home metoprolol, hydrochlorothiazide, and losartan. He reports lisinopril gives him a cough (8) Hyperlipidemia Qualifiers: Hyperlipidemia type: unspecified Qualified Code(s): E78.5 - Hyperlipidemia , unspecified Is this a current diagnosis for this admission?: Yes Plan: Continue home statin (9) Severe obesity Is this a current diagnosis for this admission?: Yes Plan: Encourage weight loss under the guidance of his physician - Time Time Spent: 30 to 50 Minutes Medications reviewed and adjusted accordingly: Yes Anticipated discharge: Home Within: Other - Upon improvement of symptomatology - Inpatient Certification Based on my medical assessment, after consideration of the patient's comorbidities, presenting symptoms, or acuity I expect that the services needed warrant INPATIENT care.: Yes I certify that my determination is in accordance with my understanding of Medicare's requirements for reasonable and necessary INPATIENT services [42 CFR 412.3e].: Yes Medical Necessity: Failure to Improve With Outpatient Therapy, Need For IV Fluids, Need for IV Antibiotics Post Hospital Care: D/C [employer]cher Documentation
[2017-06-27] MEDS ORDERED: PIPERACILLIN/TAZOBACTAM 4.5 GM VIAL IV ONE (01:09)
[2017-06-27] MEDS: INSULIN LISPRO 100 UNIT/ML 3 ML VIAL SUBCUT PRN ×2 (02:04→18:20)
[2017-06-27] MEDS: NORMAL SALINE 1000 ML 1,000 ML IV PRN ×2 (02:40→16:04)
[2017-06-27] MEDS: MORPHINE SULFATE 10 MG/ML INJ IV PRN ×2 (03:39→16:23)
[2017-06-27 05:14] LABS: ABSOLUTE BASOPHILS # (AUTO) 0.1 10^3/uL (0.0-0.2); ABSOLUTE EOSINOPHILS # (AUTO) 0.3 10^3/uL (0.0-0.6); ABSOLUTE MONOCYTES (AUTO) 0.9 10^3/uL (0.1-1.4); ABSOLUTE NEUT (AUTO) 6.6 10^3/uL (1.7-8.2); BASOPHILS % (AUTO) 0.7 % (0-2); EOSINOPHILS % (AUTO) 2.8 % (0-6); HEMATOCRIT 40.9 % (37.9-51.0); HEMOGLOBIN 13.8 g/dL (13.5-17.0); HGB HCT DIFFERENCE 0.5; LYMPHOCYTES % (AUTO) 33.4 % (13-45); MEAN CORPUSCULAR HEMOGLOBIN 29.2 pg (27.0-33.4); MEAN CORPUSCULAR HGB CONC 33.7 g/dL (32.0-36.0); MEAN CORPUSCULAR VOLUME 86 fl (80-97); MONOCYTES % (AUTO) 7.7 % (3-13); RED BLOOD COUNT 4.74 10^6/uL (4.35-5.55); RED CELL DISTRIBUTION WIDTH 14.5 % (11.5-14.0); SEGMENTED NEUTROPHILS % (AUTO) 55.4 % (42-78)
[2017-06-27 05:34] LABS: ANION GAP 14 (5-19); BLOOD UREA NITROGEN 14 mg/dL (7-20); CALCIUM 8.4 mg/dL (8.4-10.2); CARBON DIOXIDE 25 mmol/L (22-30); CHLORIDE 100 mmol/L (98-107); CREATINE KINASE 229 U/L (55-170); CREATININE RESULT 0.84 mg/dL (0.52-1.25); GLUCOSE 187 mg/dL (75-110); MAGNESIUM 1.9 mg/dL (1.6-2.3); POTASSIUM 3.8 mmol/L (3.6-5.0); SODIUM 138.8 mmol/L (137-145)
[2017-06-27] MEDS ORDERED: PIPERACILLIN SODIUM/TAZOBACTAM 4.5 GM in NORMAL SALINE 100 ML IV SCH (06:00)
[2017-06-27] MEDS: INSULIN GLARGINE,HUM.REC.ANLOG 1,000 UNIT/10 ML UNIT SUBCUT SCH (08:06)
[2017-06-27] MEDS: OXYCODONE-ACETAMINOPHEN 5-325 MG TABLET PO PRN ×3 (08:07→18:23)
--- NOTE | 2017-06-27 09:36 | PDOC PROGRESS REPORT ---
Subjective Progress Note for:: 06/27/17 Subjective:: Day 1 of hospitalization: Follow-up visit for right lower cellulitis with sepsis in the patient with history of diabetes mellitus type 1, hypertension, GERD, dyslipidemia, recent non-STEMI, hypogonadism on testosterone replacement. Patient reportedly had his testosterone injection on Thursday and on Thursday began having pain and redness of the injection site. He was seen by his primary care physician and received Toradol as well as a shot of Rocephin and then a prescription of Levaquin. He presented to the emergency room complaining of fever chills, nausea, and worsening pain and redness of the area. Was found to have cellulitis with sepsis Overnight events noted. Continues to c/o significant R thigh/leg pain. States the swelling/redness is improving. Denies CP/SOB, N/V/D, fever/chills. Afebrile Physical Exam Vital Signs: Temp Pulse Resp BP Pulse Ox 98.4 F 85 18 149/57 H 98 06/27/17 01:20 06/27/17 02:00 06/27/17 01:20 06/27/17 01:20 06/27/17 01:20 Intake & Output 06/26/17 06/27/17 06/28/17 06:59 06:59 06:59 Intake Total 1285 Balance 1285 Weight 104.5 kg General appearance: PRESENT: no acute distress, cooperative, obese Head exam: PRESENT: atraumatic, normocephalic Respiratory exam: PRESENT: clear to auscultation gurjit, symmetrical, unlabored, other. ABSENT: accessory muscle use, chest wall tenderness, crackles, decreased breath sounds, prolonged expiratory phas, rales, retraction, rhonchi, stridor, tachypnea, wheezes Cardiovascular exam: PRESENT: RRR, +S1, +S2, tachycardia. ABSENT: bradycardia, clicks, diastolic murmur, gallop, irregular rhythm, rubs, systolic murmur GI/Abdominal exam: PRESENT: normal bowel sounds, soft, other. ABSENT: ascites, diminished bowel sounds, distended, firm, guarding, hernia, hyperactive bowel sounds, hypoactive bowel sounds, mass, Martin's sign, organolmegaly, rebound, rigid, tenderness Neurological exam: PRESENT: alert, awake, oriented to person, oriented to place , oriented to time, oriented to situation, reflexes normal, CN II-XII grossly intact Skin exam: PRESENT: other - Erythema involving the entire right thigh area of induration but no focal area of fluctuancy Results Laboratory Results: 06/27/17 04:31 06/27/17 04:31 06/27/17 06/27/17 04:31 04:31 WBC 12.0 H RBC 4.74 Hgb 13.8 Hct 40.9 MCV 86 MCH 29.2 MCHC 33.7 RDW 14.5 H Plt Count 268 Seg Neutrophils % 55.4 Lymphocytes % 33.4 Monocytes % 7.7 Eosinophils % 2.8 Basophils % 0.7 Absolute Neutrophils 6.6 Absolute Lymphocytes 4.0 Absolute Monocytes 0.9 Absolute Eosinophils 0.3 Absolute Basophils 0.1 Sodium 138.8 Potassium 3.8 Chloride 100 Carbon Dioxide 25 Anion Gap 14 BUN 14 Creatinine 0.84 Est GFR ( Amer) > 60 Est GFR (Non-Af Amer) > 60 Glucose 187 H Calcium 8.4 Magnesium 1.9 06/27/17 04:31 Creatine Kinase 229 H Impressions: Lower Extremity CT 06/26/17 20:49 IMPRESSION: NO ACUTE OSSEOUS ABNORMALITY. DIFFUSE SUBCUTANEOUS EDEMA WITH MORE FOCAL FLUID ANTERIOR MID THIGH. NO DEFINITE ABSCESS IDENTIFIED. Status: Image reviewed by me Assessment & Plan - Diagnosis (1) Cellulitis of leg, right Is this a current diagnosis for this admission?: Yes Plan: Afebrile with WBC 12 [15.3]. Blood cultures pending.CT scan of the right lower extremity revealed no acute bone abnormality, diffuse subcutaneous edema no focal fluid anterior mid thigh. No definite abscess identified. Lactic acid pending. Continue empiric IV vancomycin and Zosyn. 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 Continue basal insulin with correctional [employer] sliding scale. Plan to adjust as needed (4) Hyperlipidemia Qualifiers: Hyperlipidemia type: unspecified Qualified Code(s): E78.5 - Hyperlipidemia , unspecified Is this a current diagnosis for this admission?: Yes Plan: Continue current management (5) Hypogonadism in male Is this a current diagnosis for this admission?: Yes Plan: Patient receives testosterone injections as an outpatient. He was told that this could have adverse effect given his recent [place] (6) Coronary artery disease Qualifiers: Coronary Disease-Associated Artery/Lesion type: unspecified vessel or lesion type [place] vs. transplanted heart: [place] heart Associated angina: with unspecified angina Qualified Code(s): I25.119 - Atherosclerotic heart disease of [place] coronary artery with unspecified angina pectoris Is this a current diagnosis for this admission?: Yes Plan: Sent NSTEMI. Currently chest pain-free. Continue current management (7) Hypertension Qualifiers: Hypertension type: essential hypertension Qualified Code(s): I10 - Essential (primary) hypertension Is this a current diagnosis for this admission?: Yes Plan: Essential hypertension, blood pressure target. Continue current management (8) DVT prophylaxis Plan: Subcutaneous Lovenox - Time Time Spent with patient: 35 or more minutes Medications reviewed and adjusted accordingly: Yes Anticipated discharge: Home - Inpatient Certification Based on my medical assessment, after consideration of the patient's comorbidities, presenting symptoms, or acuity I expect that the services needed warrant INPATIENT care.: Yes I certify that my determination is in accordance with my understanding of Medicare's requirements for reasonable and necessary INPATIENT services [42 CFR 412.3e].: Yes Medical Necessity: Failure to Improve With Outpatient Therapy, Need for IV Antibiotics, Risk of Complication if Not Cared For in Hospital - Plan Summary Plan Summary: Continue current IV antibiotics for 1 or 2 more days. Plan to discharge home on oral antibiotics
[2017-06-27] MEDS ORDERED: LOSARTAN POTASSIUM 25 MG TABLET PO SCH (10:00)
[2017-06-27] MEDS: PIPERACILLIN SODIUM/TAZOBACTAM 4.5 GM in NORMAL SALINE 100 ML IV SCH ×3 (10:06→20:42)
[2017-06-27] MEDS: DOCUSATE SODIUM 100 MG CAPSULE PO SCH ×2 (10:07→18:22)
[2017-06-27] MEDS: HYDROCHLOROTHIAZIDE 25 MG TABLET PO SCH (10:07)
[2017-06-27] MEDS: LOSARTAN POTASSIUM 25 MG TABLET PO SCH ×2 (10:09→22:46)
[2017-06-27] MEDS: TAMSULOSIN HCL 0.4 MG CAP.SR.24H PO SCH (10:09)
[2017-06-27] MEDS: CLOPIDOGREL BISULFATE 75 MG TABLET PO SCH (10:10)
[2017-06-27] MEDS: ASPIRIN 81 MG TABLET, CHEWABLE PO SCH (10:10)
[2017-06-27] MEDS: METOPROLOL SUCCINATE 50 MG TAB.SR.24H PO SCH (10:10)
[2017-06-27] MEDS: METFORMIN HCL 500 MG TABLET PO SCH ×2 (10:11→18:22)
[2017-06-27] MEDS: ENOXAPARIN SODIUM INJ 40 MG/0.4 ML DISP.SYRIN SUBCUT SCH (10:11)
[2017-06-27] MEDS: VANCOMYCIN HCL 1,500 MG in DEXTROSE 5%-WATER 250 ML IV SCH (18:18)
[2017-06-27] MEDS ORDERED: INSULIN GLARGINE,HUM.REC.ANLOG 1,000 UNIT/10 ML UNIT SUBCUT SCH (22:00)
[2017-06-27] MEDS: GLIMEPIRIDE 4 MG TABLET PO SCH (22:47)
[2017-06-28] MEDS: NORMAL SALINE 1000 ML 1,000 ML IV PRN ×2 (02:45→10:13)
[2017-06-28] MEDS: PIPERACILLIN SODIUM/TAZOBACTAM 4.5 GM in NORMAL SALINE 100 ML IV SCH ×4 (03:33→22:08)
[2017-06-28 05:05] LABS: ABSOLUTE BASOPHILS # (AUTO) 0.1 10^3/uL (0.0-0.2); ABSOLUTE EOSINOPHILS # (AUTO) 0.4 10^3/uL (0.0-0.6); ABSOLUTE LYMPHOCYTES (AUTO) 3.3 10^3/uL (0.5-4.7); ABSOLUTE MONOCYTES (AUTO) 0.7 10^3/uL (0.1-1.4); ABSOLUTE NEUT (AUTO) 5.3 10^3/uL (1.7-8.2); BASOPHILS % (AUTO) 0.8 % (0-2); EOSINOPHILS % (AUTO) 4.5 % (0-6); HEMATOCRIT 41.1 % (37.9-51.0); HEMOGLOBIN 14.1 g/dL (13.5-17.0); HGB HCT DIFFERENCE 1.2; LYMPHOCYTES % (AUTO) 33.7 % (13-45); MEAN CORPUSCULAR HEMOGLOBIN 29.4 pg (27.0-33.4); MEAN CORPUSCULAR HGB CONC 34.2 g/dL (32.0-36.0); MEAN CORPUSCULAR VOLUME 86 fl (80-97); MONOCYTES % (AUTO) 7.3 % (3-13); RED BLOOD COUNT 4.78 10^6/uL (4.35-5.55); RED CELL DISTRIBUTION WIDTH 14.5 % (11.5-14.0); SEGMENTED NEUTROPHILS % (AUTO) 53.7 % (42-78); WHITE BLOOD COUNT 9.8 10^3/uL (4.0-10.5)
[2017-06-28 05:24] LABS: ANION GAP 12 (5-19); BLOOD UREA NITROGEN 11 mg/dL (7-20); CALCIUM 8.5 mg/dL (8.4-10.2); CARBON DIOXIDE 24 mmol/L (22-30); CHLORIDE 104 mmol/L (98-107); CREATININE RESULT 0.75 mg/dL (0.52-1.25); GLUCOSE 115 mg/dL (75-110); POTASSIUM 4.1 mmol/L (3.6-5.0); SODIUM 140.1 mmol/L (137-145)
[2017-06-28] MEDS: VANCOMYCIN HCL 1,500 MG in DEXTROSE 5%-WATER 250 ML IV SCH ×2 (05:52→17:51)
[2017-06-28] MEDS: METOPROLOL SUCCINATE 50 MG TAB.SR.24H PO SCH ×3 (05:56→22:08)
[2017-06-28] MEDS: INSULIN GLARGINE,HUM.REC.ANLOG 1,000 UNIT/10 ML UNIT SUBCUT SCH ×2 (10:12→22:09)
[2017-06-28] MEDS: ENOXAPARIN SODIUM INJ 40 MG/0.4 ML DISP.SYRIN SUBCUT SCH (10:12)
[2017-06-28] MEDS: HYDROCHLOROTHIAZIDE 25 MG TABLET PO SCH (10:13)
[2017-06-28] MEDS: DOCUSATE SODIUM 100 MG CAPSULE PO SCH ×2 (10:13→16:34)
[2017-06-28] MEDS: CLOPIDOGREL BISULFATE 75 MG TABLET PO SCH (10:13)
[2017-06-28] MEDS: TAMSULOSIN HCL 0.4 MG CAP.SR.24H PO SCH (10:13)
[2017-06-28] MEDS: LOSARTAN POTASSIUM 25 MG TABLET PO SCH ×2 (10:13→22:08)
[2017-06-28] MEDS: ASPIRIN 81 MG TABLET, CHEWABLE PO SCH (10:19)
[2017-06-28] MEDS: OXYCODONE-ACETAMINOPHEN 5-325 MG TABLET PO PRN ×2 (10:19→16:28)
[2017-06-28] MEDS: METFORMIN HCL 500 MG TABLET PO SCH ×2 (10:20→16:34)
--- NOTE | 2017-06-28 10:27 | PDOC PROGRESS REPORT ---
Subjective Progress Note for:: 06/28/17 Subjective:: Day 2 of hospitalization: Follow-up visit for right lower cellulitis with sepsis in the patient with history of diabetes mellitus type 1, hypertension, GERD, dyslipidemia, recent non-STEMI, hypogonadism on testosterone replacement. Patient reportedly had his testosterone injection on Thursday and on Thursday began having pain and redness of the injection site. He was seen by his primary care physician and received Toradol as well as a shot of Rocephin and then a prescription of Levaquin. He presented to the emergency room complaining of fever chills, nausea, and worsening pain and redness of the area. Was found to have cellulitis with sepsis and started on empiric IV vancomycin and Zosyn. Patient has been afebrile. Overnight events noted. Continues to c/o significant R thigh/leg pain, the swelling/redness is markedly improving. Denies CP/SOB, N/V/D, fever/chills. Afebrile. He has been ambulating in the hallways Physical Exam Vital Signs: Temp Pulse Resp BP Pulse Ox 97.7 F 78 18 126/52 H 97 06/28/17 07:03 06/28/17 07:03 06/28/17 07:03 06/28/17 07:03 06/28/17 07:03 Intake & Output 06/27/17 06/28/17 06/29/17 06:59 06:59 06:59 Intake Total 1285 8185 Balance 1285 8185 Weight 104.5 kg 104.6 kg General appearance: PRESENT: no acute distress, cooperative, obese Head exam: PRESENT: atraumatic, normocephalic Respiratory exam: PRESENT: decreased breath sounds, symmetrical, unlabored. ABSENT: accessory muscle use, chest wall tenderness, clear to auscultation gurjit, crackles, prolonged expiratory phas, rales, retraction, rhonchi, stridor, tachypnea, wheezes, other Cardiovascular exam: PRESENT: RRR, +S1, +S2. ABSENT: bradycardia, clicks, diastolic murmur, gallop, irregular rhythm, rubs, systolic murmur, tachycardia, other GI/Abdominal exam: PRESENT: normal bowel sounds, soft. ABSENT: ascites, diminished bowel sounds, distended, firm, guarding, hernia, hyperactive bowel sounds, hypoactive bowel sounds, mass, Martin's sign, organolmegaly, rebound, rigid, tenderness, other Neurological exam: PRESENT: alert, awake, oriented to person, oriented to place , oriented to time, oriented to situation, reflexes normal, CN II-XII grossly intact Skin exam: PRESENT: other - Right eye and leg swollen, mildly erythematous, tender Results Laboratory Results: 06/28/17 03:56 06/28/17 03:56 06/27/17 06/28/17 06/28/17 09:20 03:56 03:56 WBC 9.8 RBC 4.78 Hgb 14.1 Hct 41.1 MCV 86 MCH 29.4 MCHC 34.2 RDW 14.5 H Plt Count 287 Seg Neutrophils % 53.7 Lymphocytes % 33.7 Monocytes % 7.3 Eosinophils % 4.5 Basophils % 0.8 Absolute Neutrophils 5.3 Absolute Lymphocytes 3.3 Absolute Monocytes 0.7 Absolute Eosinophils 0.4 Absolute Basophils 0.1 Sodium 140.1 Potassium 4.1 Chloride 104 Carbon Dioxide 24 Anion Gap 12 BUN 11 Creatinine 0.75 Est GFR ( Amer) > 60 Est GFR (Non-Af Amer) > 60 Glucose 115 H Lactic Acid 1.6 Calcium 8.5 06/27/17 04:31 Creatine Kinase 229 H Impressions: Lower Extremity CT 06/26/17 20:49 IMPRESSION: NO ACUTE OSSEOUS ABNORMALITY. DIFFUSE SUBCUTANEOUS EDEMA WITH MORE FOCAL FLUID ANTERIOR MID THIGH. NO DEFINITE ABSCESS IDENTIFIED. Status: Image reviewed by me Assessment & Plan - Diagnosis (1) Cellulitis of leg, right Is this a current diagnosis for this admission?: Yes Plan: Remains afebrile with WBC 9.8 [15.3]. Lactic acid 1.6. Blood cultures pending.CT scan of the right lower extremity revealed no acute bone abnormality , diffuse subcutaneous edema no focal fluid anterior mid thigh. No definite abscess identified. Right lower extremity venous duplex to rule out DVT results pending. Continue empiric IV vancomycin and Zosyn. Follow cultures. Plan to escalate antibiotic therapy soon (2) Sepsis Qualifiers: Sepsis type: sepsis due to unspecified organism Qualified Code(s): A41.9 - Sepsis, unspecified organism Is this a current diagnosis for this admission?: Yes Plan: As above (3) Diabetes Qualifiers: Diabetes mellitus type: type 2 Diabetes mellitus complication status: with skin complications Diabetes mellitus complication detail: with other skin complication Diabetes mellitus intermission coordinator insulin use: with intermission coordinator use Qualified Code(s): E11.628 - Type 2 diabetes mellitus with other skin complications; Z79.4 - ad terminal makeup operator (current) use of insulin; Z79.4 - FDC ( current) use of insulin; Z79.4 - ad terminal makeup operator (current) use of insulin; Z79.4 - ad terminal makeup operator (current) use of insulin Is this a current diagnosis for this admission?: Yes Plan: Diabetes mellitus type 2, long-term insulin use, uncontrolled A1c 9.8. Capillary glucose in the 80s-140s range. Continue basal insulin with correctional NovoLog sliding scale. Plan to adjust as needed (4) Coronary artery disease Qualifiers: Coronary Disease-Associated Artery/Lesion type: unspecified vessel or lesion type [place] vs. transplanted heart: [place] heart Associated angina: with unspecified angina Qualified Code(s): I25.119 - Atherosclerotic heart disease of [place] coronary artery with unspecified angina pectoris Is this a current diagnosis for this admission?: Yes Plan: Sent NSTEMI. Currently chest pain-free. Continue current management: Aspirin, clopidogrel, metoprolol, losartan, atorvastatin (5) Hypertension Qualifiers: Hypertension type: essential hypertension Qualified Code(s): I10 - Essential (primary) hypertension Is this a current diagnosis for this admission?: Yes Plan: Essential hypertension, blood pressure at target. Continue losartan and metoprolol (6) Hyperlipidemia Qualifiers: Hyperlipidemia type: unspecified Qualified Code(s): E78.5 - Hyperlipidemia , unspecified Is this a current diagnosis for this admission?: Yes Plan: Chronic, stable. Continue home atorvastatin (7) Hypogonadism in male Is this a current diagnosis for this admission?: Yes Plan: Patient receives testosterone injections as an outpatient. We will hold (8) DVT prophylaxis Plan: Subcutaneous Lovenox - Time Time Spent with patient: 25-34 minutes Medications reviewed and adjusted accordingly: Yes Anticipated discharge: Home Within: within 36 hours - Inpatient Certification Medical Necessity: Need for IV Antibiotics, Risk of Complication if Not Cared For in Hospital
--- NOTE | 2017-06-28 12:30 | XCELERA REPORT ---
[address] [address] Lower Extremity Venous Evaluation Name: SILVANO SIMMONS Age: 57 yrs Gender: Male : 1960 Patient Status: Inpatient Patient Location: [address] [place] [address] Study Date: 06/27/2017 04:29 PM Procedure: Color flow and duplex imaging of the veins of the right lower extremity as well as the left Common Femoral vein. Reason For Study: Right thigh cellulitis r/o DVT Ordering Physician: NILAY MINA Performed By: Melba Adames Right Sided Venous Evaluation Normal vessel filling wall to wall, compression and augmentation as well as Colour flow down to the infrageniculate veins. Left Sided Venous Evaluation The left common femoral vein is fully compressible. Spontaneous and phasic flow is present in the left common femoral vein. Interpretation Summary No duplex evidence of DVT or obstruction in the right lower extremity nor in the left Common Femoral vein. : NILAY MINA > [place] [facility]
[2017-06-28 14:43] LABS: LUTEINIZING HORMONE <0.2 mIU/mL (1.7-8.6)
[2017-06-28] MEDS: INSULIN LISPRO 100 UNIT/ML 3 ML VIAL SUBCUT PRN ×2 (16:54→22:09)
[2017-06-28] MEDS: GLIMEPIRIDE 4 MG TABLET PO SCH (22:08)
[2017-06-28] MEDS: MORPHINE SULFATE 10 MG/ML INJ IV PRN (22:25)
[2017-06-29] MEDS: PIPERACILLIN SODIUM/TAZOBACTAM 4.5 GM in NORMAL SALINE 100 ML IV SCH ×4 (03:32→20:26)
[2017-06-29] MEDS: OXYCODONE-ACETAMINOPHEN 5-325 MG TABLET PO PRN ×3 (06:55→19:49)
[2017-06-29 07:18] LABS: ANION GAP 10 (5-19); BLOOD UREA NITROGEN 11 mg/dL (7-20); CALCIUM 8.5 mg/dL (8.4-10.2); CARBON DIOXIDE 23 mmol/L (22-30); CHLORIDE 104 mmol/L (98-107); CREATININE RESULT 0.74 mg/dL (0.52-1.25); GLUCOSE 177 mg/dL (75-110); POTASSIUM 4.4 mmol/L (3.6-5.0); SODIUM 137.3 mmol/L (137-145)
[2017-06-29 07:21] LABS: ABSOLUTE BASOPHILS # (AUTO) 0.1 10^3/uL (0.0-0.2); ABSOLUTE EOSINOPHILS # (AUTO) 0.3 10^3/uL (0.0-0.6); ABSOLUTE LYMPHOCYTES (AUTO) 3.2 10^3/uL (0.5-4.7); ABSOLUTE MONOCYTES (AUTO) 0.7 10^3/uL (0.1-1.4); ABSOLUTE NEUT (AUTO) 6.1 10^3/uL (1.7-8.2); BASOPHILS % (AUTO) 1.1 % (0-2); HEMATOCRIT 41.3 % (37.9-51.0); HEMOGLOBIN 14.2 g/dL (13.5-17.0); HGB HCT DIFFERENCE 1.3; LYMPHOCYTES % (AUTO) 30.9 % (13-45); MEAN CORPUSCULAR HEMOGLOBIN 29.5 pg (27.0-33.4); MEAN CORPUSCULAR HGB CONC 34.3 g/dL (32.0-36.0); MEAN CORPUSCULAR VOLUME 86 fl (80-97); MONOCYTES % (AUTO) 6.5 % (3-13); RED CELL DISTRIBUTION WIDTH 14.6 % (11.5-14.0); SEGMENTED NEUTROPHILS % (AUTO) 58.5 % (42-78); WHITE BLOOD COUNT 10.4 10^3/uL (4.0-10.5)
[2017-06-29] MEDS: INSULIN GLARGINE,HUM.REC.ANLOG 1,000 UNIT/10 ML UNIT SUBCUT SCH ×2 (07:52→22:02)
[2017-06-29] MEDS: VANCOMYCIN HCL 1,500 MG in DEXTROSE 5%-WATER 250 ML IV SCH (08:07)
[2017-06-29 08:15] LABS: TESTOSTERONE FREE (DIRECT) 31.8 pg/mL (7.2-24.0)
--- NOTE | 2017-06-29 09:17 | Progress Note ---
Provider Note Provider Note: Patient's care transferred to Dr Paulino as attending. Patient and Dr Paulino notified.
[2017-06-29] MEDS: ENOXAPARIN SODIUM INJ 40 MG/0.4 ML DISP.SYRIN SUBCUT SCH (09:36)
[2017-06-29] MEDS: DOCUSATE SODIUM 100 MG CAPSULE PO SCH ×2 (09:38→17:38)
[2017-06-29] MEDS: METOPROLOL SUCCINATE 50 MG TAB.SR.24H PO SCH ×2 (09:39→22:01)
[2017-06-29] MEDS: METFORMIN HCL 500 MG TABLET PO SCH ×2 (09:39→17:39)
[2017-06-29] MEDS: CLOPIDOGREL BISULFATE 75 MG TABLET PO SCH (09:40)
[2017-06-29] MEDS: ASPIRIN 81 MG TABLET, CHEWABLE PO SCH (09:40)
[2017-06-29] MEDS: LOSARTAN POTASSIUM 25 MG TABLET PO SCH ×2 (09:40→22:00)
[2017-06-29] MEDS: HYDROCHLOROTHIAZIDE 25 MG TABLET PO SCH (09:40)
[2017-06-29] MEDS: TAMSULOSIN HCL 0.4 MG CAP.SR.24H PO SCH (09:40)
[2017-06-29] MEDS: INSULIN LISPRO 100 UNIT/ML 3 ML VIAL SUBCUT PRN ×2 (13:22→17:38)
[2017-06-29] MEDS: VANCOMYCIN HCL 1,250 MG in DEXTROSE 5%-WATER 250 ML IV SCH ×2 (14:22→22:08)
[2017-06-29] MEDS ORDERED: PROMETHAZINE HCL 25 MG SUPP.RECT PR PRN (15:36)
[2017-06-29] MEDS ORDERED: ACETAMINOPHEN 325 MG TABLET PO PRN (15:38)
--- NOTE | 2017-06-29 16:25 | PDOC PROGRESS REPORT ---
Subjective Progress Note for:: 06/29/17 Subjective:: He is feeling better and the pain and redness on right thigh have decreased remarkably. We will continue with present mgt and for possible discharge home tomorrow.The blood culture showed no growth day 2. Physical Exam Vital Signs: Temp Pulse Resp BP Pulse Ox 99.4 F 74 18 112/48 L 96 06/29/17 12:08 06/29/17 14:00 06/29/17 12:08 06/29/17 12:08 06/29/17 12:08 Intake & Output 06/28/17 06/29/17 06/30/17 06:59 06:59 06:59 Intake Total 8185 3126 Output Total 2200 Balance 8185 926 Weight 104.6 kg 104.5 kg General appearance: PRESENT: no acute distress, cooperative, well-developed, well-nourished Head exam: PRESENT: atraumatic, normocephalic Eye exam: PRESENT: conjunctival injection, EOMI, PERRLA Ear exam: PRESENT: normal external ear exam, TM's normal bilaterally Mouth exam: PRESENT: moist, neck supple, tongue midline Neck exam: PRESENT: full ROM Respiratory exam: PRESENT: clear to auscultation gurjit, symmetrical Cardiovascular exam: PRESENT: +S1, +S2 Pulses: PRESENT: +2 pedal pulses bilateral GI/Abdominal exam: PRESENT: normal bowel sounds, soft Rectal exam: PRESENT: deferred Additional comments: Right thigh- swollen, slightly tender, not warm,not erythematous,no pedal edema , pulses +2. Musculoskeletal exam: PRESENT: full ROM Neurological exam: PRESENT: alert, awake, oriented to person, oriented to place , oriented to time, CN II-XII grossly intact Psychiatric exam: PRESENT: normal mood Results Laboratory Results: 06/29/17 07:11 06/29/17 06:10 06/29/17 06/29/17 06/29/17 06:10 06:10 07:11 WBC 10.4 RBC 4.80 Hgb 14.2 Hct 41.3 MCV 86 MCH 29.5 MCHC 34.3 RDW 14.6 H Plt Count 275 Seg Neutrophils % 58.5 Lymphocytes % 30.9 Monocytes % 6.5 Eosinophils % 3.0 Basophils % 1.1 Absolute Neutrophils 6.1 Absolute Lymphocytes 3.2 Absolute Monocytes 0.7 Absolute Eosinophils 0.3 Absolute Basophils 0.1 Sodium 137.3 Potassium 4.4 Chloride 104 Carbon Dioxide 23 Anion Gap 10 BUN 11 Creatinine 0.74 Est GFR ( Amer) > 60 Est GFR (Non-Af Amer) > 60 Glucose 177 H Calcium 8.5 C-Reactive Protein 14.1 H 06/27/17 04:31 Creatine Kinase 229 H Impressions: Lower Extremity CT 06/26/17 20:49 IMPRESSION: NO ACUTE OSSEOUS ABNORMALITY. DIFFUSE SUBCUTANEOUS EDEMA WITH MORE FOCAL FLUID ANTERIOR MID THIGH. NO DEFINITE ABSCESS IDENTIFIED. Assessment & Plan - Diagnosis (1) Cellulitis of leg, right Is this a current diagnosis for this admission?: Yes Plan: Ct with Zosyn 4.5 g q6h IV; Ct with Vancomycin IV as per [facility] protocol; Morphine 4 mg q4h IV prn, Zofran 4 mg q6h IV prn, Tylenol 650 mg q4h prn po. (2) Sepsis Qualifiers: Sepsis type: sepsis due to unspecified organism Qualified Code(s): A41.9 - Sepsis, unspecified organism Is this a current diagnosis for this admission?: Yes Plan: Ct with Zosyn 4.5 g q6h IV; Vancomycin IV as per [facility] protocol; Tylenol 650 mg q4h po prn; Morphine 4 mg q4h IV prn; Zofran 4 mg q6h IV prn; f/u blood cultures. (3) Diabetes Qualifiers: Diabetes mellitus type: type 2 Diabetes mellitus complication status: with skin complications Diabetes mellitus complication detail: with other skin complication Diabetes mellitus terminal gauger supervisor insulin use: with skilled nursing use Qualified Code(s): E11.628 - Type 2 diabetes mellitus with other skin complications; Z79.4 - computer terminal operator (current) use of insulin; Z79.4 - computer terminal operator ( current) use of insulin; Z79.4 - intermediate (current) use of insulin; Z79.4 - intermediate (current) use of insulin Is this a current diagnosis for this admission?: Yes Plan: Ct with Lantus 50 units qhs, 45 units qam; Metformin 1000 mg BID PO; Amaryl 8 mg qhs po; slidding scale with humalog insulin OM protocol; 1800 calorie ADA diet. (4) Hypertension Qualifiers: Hypertension type: essential hypertension Qualified Code(s): I10 - Essential (primary) hypertension Is this a current diagnosis for this admission?: Yes Plan: Ct with Losartan 50 mg qd po; HCTZ 25 mg qd po; Metoprolol succinate 100 mg BID po; 2 g sodiaum diet. (5) Coronary artery disease Qualifiers: Coronary Disease-Associated Artery/Lesion type: unspecified vessel or lesion type [place] vs. transplanted heart: [place] heart Associated angina: with unspecified angina Qualified Code(s): I25.119 - Atherosclerotic heart disease of [place] coronary artery with unspecified angina pectoris Is this a current diagnosis for this admission?: Yes Plan: Ct with Aspirin 81 mg qd po; Plavix 75 mg qd po; 2 g sodium , low cholesterol diet. (6) Hyperlipidemia Qualifiers: Hyperlipidemia type: unspecified Qualified Code(s): E78.5 - Hyperlipidemia , unspecified Is this a current diagnosis for this admission?: Yes Plan: We will hold Lipitor 80 mg qhs for now; we will ct with 200mg cholesterol diet. (7) BPH (benign prostatic hyperplasia) Is this a current diagnosis for this admission?: Yes Plan: Ct with Flomax 0.4mg qd po. (8) DVT prophylaxis Is this a current diagnosis for this admission?: Yes Plan: Ct with Lovenox 40 mg qd ; SCD.
[2017-06-29] MEDS ORDERED: ATORVASTATIN CALCIUM 80 MG TABLET PO SCH (22:00)
[2017-06-29] MEDS: GLIMEPIRIDE 4 MG TABLET PO SCH (22:01)
[2017-06-30] MEDS: PIPERACILLIN SODIUM/TAZOBACTAM 4.5 GM in NORMAL SALINE 100 ML IV SCH ×3 (02:25→16:40)
[2017-06-30] MEDS: OXYCODONE-ACETAMINOPHEN 5-325 MG TABLET PO PRN ×2 (04:16→10:21)
[2017-06-30 05:29] LABS: ABSOLUTE BASOPHILS # (AUTO) 0.1 10^3/uL (0.0-0.2); ABSOLUTE EOSINOPHILS # (AUTO) 0.4 10^3/uL (0.0-0.6); ABSOLUTE LYMPHOCYTES (AUTO) 3.3 10^3/uL (0.5-4.7); ABSOLUTE MONOCYTES (AUTO) 0.7 10^3/uL (0.1-1.4); ABSOLUTE NEUT (AUTO) 5.3 10^3/uL (1.7-8.2); BASOPHILS % (AUTO) 0.8 % (0-2); EOSINOPHILS % (AUTO) 3.9 % (0-6); HEMATOCRIT 43.1 % (37.9-51.0); HEMOGLOBIN 14.6 g/dL (13.5-17.0); HGB HCT DIFFERENCE 0.7; LYMPHOCYTES % (AUTO) 33.6 % (13-45); MEAN CORPUSCULAR HGB CONC 33.9 g/dL (32.0-36.0); MEAN CORPUSCULAR VOLUME 86 fl (80-97); MONOCYTES % (AUTO) 7.6 % (3-13); RED BLOOD COUNT 5.04 10^6/uL (4.35-5.55); RED CELL DISTRIBUTION WIDTH 14.5 % (11.5-14.0); SEGMENTED NEUTROPHILS % (AUTO) 54.1 % (42-78); WHITE BLOOD COUNT 9.8 10^3/uL (4.0-10.5)
[2017-06-30 06:00] LABS: ALANINE AMINOTRANSFERASE 62 U/L (21-72); ALBUMIN 3.6 g/dL (3.5-5.0); ALKALINE PHOSPHATASE 62 U/L (38-126); ANION GAP 13 (5-19); ASPARTATE AMINO TRANSFERASE 35 U/L (17-59); BILIRUBIN,DIRECT 0.3 mg/dL (0.0-0.4); BILIRUBIN,TOTAL 0.4 mg/dL (0.2-1.3); BLOOD UREA NITROGEN 11 mg/dL (7-20); CARBON DIOXIDE 24 mmol/L (22-30); CHLORIDE 101 mmol/L (98-107); CREATININE RESULT 0.81 mg/dL (0.52-1.25); GLUCOSE 142 mg/dL (75-110); POTASSIUM 4.3 mmol/L (3.6-5.0); SODIUM 138.4 mmol/L (137-145); TOTAL PROTEIN 6.4 g/dL (6.3-8.2)
[2017-06-30] MEDS: VANCOMYCIN HCL 1,250 MG in DEXTROSE 5%-WATER 250 ML IV SCH ×2 (06:03→16:40)
[2017-06-30] MEDS: INSULIN GLARGINE,HUM.REC.ANLOG 1,000 UNIT/10 ML UNIT SUBCUT SCH (08:47)
[2017-06-30] MEDS: CLOPIDOGREL BISULFATE 75 MG TABLET PO SCH (09:39)
[2017-06-30] MEDS: METOPROLOL SUCCINATE 50 MG TAB.SR.24H PO SCH (09:39)
[2017-06-30] MEDS: METFORMIN HCL 500 MG TABLET PO SCH (09:39)
[2017-06-30] MEDS: ASPIRIN 81 MG TABLET, CHEWABLE PO SCH (09:39)
[2017-06-30] MEDS: TAMSULOSIN HCL 0.4 MG CAP.SR.24H PO SCH (09:40)
[2017-06-30] MEDS: LOSARTAN POTASSIUM 25 MG TABLET PO SCH (09:40)
[2017-06-30] MEDS: ENOXAPARIN SODIUM INJ 40 MG/0.4 ML DISP.SYRIN SUBCUT SCH (09:40)
[2017-06-30] MEDS: HYDROCHLOROTHIAZIDE 25 MG TABLET PO SCH (09:40)
[2017-06-30] MEDS: DOCUSATE SODIUM 100 MG CAPSULE PO SCH (09:43)
[2017-06-30] MEDS: INSULIN LISPRO 100 UNIT/ML 3 ML VIAL SUBCUT PRN (13:54)
[2017-06-30 14:22] LABS: CREATININE RESULT 1.23 mg/dL (0.52-1.25)
--- NOTE | 2017-06-30 15:06 | PDOC DISCHARGE SUMMARY ---
General - Admit/Disc Date/PCP Admission Date/Primary Care Provider: 06/26/17 23:[address] Discharge Date: 06/30/17 - Discharge Diagnosis (1) Cellulitis of leg, right Is this a current diagnosis for this admission?: Yes (2) Sepsis Is this a current diagnosis for this admission?: Yes (3) Diabetes Is this a current diagnosis for this admission?: Yes (4) Hypertension Is this a current diagnosis for this admission?: Yes (5) Coronary artery disease Is this a current diagnosis for this admission?: Yes (6) Hyperlipidemia Is this a current diagnosis for this admission?: Yes (7) BPH (benign prostatic hyperplasia) Is this a current diagnosis for this admission?: Yes (8) DVT prophylaxis Is this a current diagnosis for this admission?: Yes - Additional Information Resuscitation Status: Full Code Home Medications: Aspirin [Aspirin 81 mg Chewable Tablet] 81 mg PO DAILY 09/08/11 Insulin Glargine,Hum.rec.anlog [Lantus] 25 unit SQ QHS 09/08/11 Losartan Potassium [Cozaar 25 mg Tablet] 50 mg PO DAILY 09/08/11 Glimepiride [Amaryl 4 mg Tablet] 8 mg PO QHS 10/15/12 Metformin HCl [Glucophage XR 500 mg Tablet] 1,000 mg PO BID 10/15/12 Tamsulosin HCl [Flomax 0.4 mg Cap.sr] 0.4 mg PO DAILY #7 cap.sr.24h 03/15/13 Insulin Glargine,Hum.rec.anlog [Lantus] 45 units SUBCUT QAM 06/10/15 Amox Tr/Potassium Clavulanate [Augmentin 875-125 mg Tablet] 1 tab PO BID #20 tablet 06/30/17 Atorvastatin Calcium [Lipitor 80 mg Tablet] 80 mg PO QHS tablet 06/30/17 Clopidogrel Bisulfate [Plavix 75 mg Tablet] 75 mg PO DAILY tablet 06/30/17 Hydrochlorothiazide [Hydrodiuril 25 mg Tablet] 25 mg PO DAILY tablet 06/30/17 Metoprolol Succinate [Toprol Xl 50 mg Tab.sr] 100 mg PO Q12 tab.sr.24h Oxycodone HCl/Acetaminophen [Percocet 5-325 mg Tablet] 1 tab PO Q6HP PRN tablet 06/30/17 Promethazine HCl [Phenergan 25 mg Supp.rect] 25 mg HI Q6HP PRN supp.rect Tamsulosin HCl [Flomax 0.4 mg Cap.sr] 0.4 mg PO DAILY cap.sr.24h 06/30/17 History of Present Illness History of Present Illness: SILVANO SIMMONS is a 57 year old male with hx of DM2/HTN/hyperlipidemia/CAD s.p stents/DM neuropathy/Back pain who has been having painful swelling right thigh after he used testosterone injection on his thigh about 5-7 days earlier. He was seen at PCP and was given Levaquin and Toradol injection. On account of worsening of symptoms, he went to ER and was admitted for right thigh cellulitis and sepsis. Hospital Course Hospital Course: 57 year old man who was admitted for sepsis and right cellulitis by hospitalists group and was started on Zosyn and Vancomycin.He was put on Percocet and Morphine with Zofran. Blood culture showed no growth day 3. There was no abscess and he is stable. He will be discharged today on Augmentin in addition to his regular medications. Physical Exam Vital Signs: Temp Pulse Resp BP Pulse Ox 97.8 F 67 16 129/62 H 98 06/30/17 08:00 06/30/17 08:00 06/30/17 08:00 06/30/17 08:00 06/30/17 08:00 Intake & Output 06/29/17 06/30/17 07/01/17 06:59 06:59 06:59 Intake Total 3126 2001 Output Total 2200 1500 Balance 926 501 Weight 104.5 kg 105.3 kg General appearance: PRESENT: no acute distress, cooperative, well-developed, well-nourished Head exam: PRESENT: atraumatic, normocephalic Eye exam: PRESENT: EOMI, PERRLA Ear exam: PRESENT: normal external ear exam, TM's normal bilaterally Mouth exam: PRESENT: moist, neck supple, tongue midline Respiratory exam: PRESENT: clear to auscultation gurjit, symmetrical Cardiovascular exam: PRESENT: +S1, +S2 Pulses: PRESENT: +2 pedal pulses bilateral GI/Abdominal exam: PRESENT: normal bowel sounds, soft Rectal exam: PRESENT: deferred Extremities exam: PRESENT: full ROM Musculoskeletal exam: PRESENT: full ROM Neurological exam: PRESENT: alert, awake, oriented to person, oriented to place , oriented to time Psychiatric exam: PRESENT: normal mood Results Laboratory Results: 06/30/17 04:43 06/30/17 13:46 06/30/17 06/30/17 06/30/17 04:43 04:43 13:46 WBC 9.8 RBC 5.04 Hgb 14.6 Hct 43.1 MCV 86 MCH 29.0 MCHC 33.9 RDW 14.5 H Plt Count 279 Seg Neutrophils % 54.1 Lymphocytes % 33.6 Monocytes % 7.6 Eosinophils % 3.9 Basophils % 0.8 Absolute Neutrophils 5.3 Absolute Lymphocytes 3.3 Absolute Monocytes 0.7 Absolute Eosinophils 0.4 Absolute Basophils 0.1 Sodium 138.4 Potassium 4.3 Chloride 101 Carbon Dioxide 24 Anion Gap 13 BUN 11 Creatinine 0.81 1.23 Est GFR ( Amer) > 60 > 60 Est GFR (Non-Af Amer) > 60 > 60 Glucose 142 H Calcium 9.0 Total Bilirubin 0.4 AST 35 ALT 62 Alkaline Phosphatase 62 Total Protein 6.4 Albumin 3.6 06/27/17 04:31 Creatine Kinase 229 H Impressions: Lower Extremity CT 06/26/17 20:49 IMPRESSION: NO ACUTE OSSEOUS ABNORMALITY. DIFFUSE SUBCUTANEOUS EDEMA WITH MORE FOCAL FLUID ANTERIOR MID THIGH. NO DEFINITE ABSCESS IDENTIFIED.
[2017-06-30 16:43] VITALS: BP 149/57
== END 2017-06-30 18:11 | disposition home or self-care (01) | DRG 872 ==
LOC: ER 20:28 → EH 23:20 → 3N 06-27 01:05
PROVIDERS: ADMIT Family Medicine; ATTEND Internal Medicine
DX: A41.9 Sepsis, unspecified organism (principal); L03.115 Cellulitis of right lower limb; I10 Essential (primary) hypertension; E78.5 Hyperlipidemia, unspecified; I25.10 Atherosclerotic heart disease of native coronary artery without angina pectoris; E11.9 Type 2 diabetes mellitus without complications; E11.628 Type 2 diabetes mellitus with other skin complications; E11.65 Type 2 diabetes mellitus with hyperglycemia; E66.01 Morbid (severe) obesity due to excess calories; E11.40 Type 2 diabetes mellitus with diabetic neuropathy, unspecified; N40.0 Benign prostatic hyperplasia without lower urinary tract symptoms; E29.1 Testicular hypofunction; I25.2 Old myocardial infarction; Z79.890 Hormone replacement therapy; Z87.891 Personal history of nicotine dependence; Z95.5 Presence of coronary angioplasty implant and graft; Z82.49 Family history of ischemic heart disease and other diseases of the circulatory system; Z79.82 Long term (current) use of aspirin; Z79.4 Long term (current) use of insulin; Z79.02 Long term (current) use of antithrombotics/antiplatelets
CPT/HCPCS: 36415; 80048; 80053; 80202; 82550; 82565; 82962; 83002; 83036; 83605; 83735; 84402; 84403; 85025; 85610; 85652; 85730; 86140; 87040; 93971; 96365; 96368; 99285; J1650; J1815; J2270; J2543; J3370; J3490; J7030; J7060

== ENCOUNTER 2017-10-01 22:04 | Emergency (ER) | payer BC ==
[2017-10-01] MEDS ORDERED: ASPIRIN 81 MG TABLET, CHEWABLE PO ONE (22:25)
[2017-10-01] MEDS ORDERED: NITROGLYCERIN 2% OINTMENT 1 GM PACKET TP ONE (23:00)
--- NOTE | 2017-10-01 23:00 | ER Document Report ---
ED Cardiac - General Mode of Arrival: Ambulatory Information source: Patient TRAVEL OUTSIDE OF THE [place] IN LAST 30 DAYS: No <ANOOP OLSEN - Last Filed: 10/02/17 00:41> <KODY LAL - Last Filed: 10/02/17 03:14> - General Chief Complaint: Chest Pain Stated Complaint: CHEST PAIN Time Seen by Provider: 10/01/17 22:24 Notes: Patient is a 57 year old male that presents to the emergency department today with complaints of chest pain which began 3 hours prior to arrival. Patient states that he feels like "someone is standing on his chest". Patient states that he had an N-STEMI on December 26. Patient complains of nausea and shortness of breath as well. (ANOOP OLSEN) - Related Data Allergies/Adverse Reactions: No Known Allergies Allergy (Verified 10/02/17 02:43) Past Medical History - General Information source: Patient - Social History Smoking Status: Former Smoker Chew tobacco use (# tins/day): No Frequency of alcohol use: None Drug Abuse: None Lives with: Family Family History: Reviewed & Not Pertinent, CAD Patient has suicidal ideation: No Patient has homicidal ideation: No - Past Medical History Cardiac Medical History: Reports: Hx Heart Attack - December 2016, Hx Hypercholesterolemia - statin d/t HI, Hx Hypertension Pulmonary Medical History: Neurological Medical History: Endocrine Medical History: Reports: Hx Diabetes Mellitus Type 2 GI Medical History: Reports: Hx Gastroesophageal Reflux Disease, Hx Hiatal Hernia, Hx Ulcer - Gastric ulcer Musculoskeltal Medical History: Skin Medical History: Reports Hx Cellulitis Psychiatric Medical History: Reports: Hx Anxiety Past Surgical History: Reports: Hx Cardiac Catheterization - stent, Other - Benign bladder mass removal - Immunizations Immunizations up to date: Yes Hx Diphtheria, Pertussis, Tetanus Vaccination: Yes <ANOOP OLSEN - Last Filed: 10/02/17 00:41> Review of Systems - Review of Systems Constitutional: No symptoms reported EENT: No symptoms reported Cardiovascular: See HPI, Chest pain Respiratory: See HPI, Short of breath Gastrointestinal: See HPI, Nausea Genitourinary: No symptoms reported Male Genitourinary: No symptoms reported Musculoskeletal: No symptoms reported Skin: No symptoms reported Hematologic/Lymphatic: No symptoms reported Neurological/Psychological: No symptoms reported -: Yes All other systems reviewed and negative <ANOOP OLSEN - Last Filed: 10/02/17 00:41> Physical Exam <ANOOP OLSEN - Last Filed: 10/02/17 00:41> <KODY LAL - Last Filed: 10/02/17 03:14> - Vital signs Vitals: Temp Pulse Resp BP Pulse Ox 98 F 82 18 150/67 H 96 10/01/17 22:18 10/01/17 22:18 10/01/17 22:18 10/01/17 22:18 10/01/17 22:18 - Notes Notes: Physical Exam: General: Alert, appears well. HEENT: Normocephalic. Atraumatic. PERRL. Extraocular movements intact. Oropharynx clear. Neck: Supple. Non-tender. Respiratory: No respiratory distress. Clear and equal breath sounds bilaterally. Cardiovascular: Regular rate and rhythm. Abdominal: Obese. Non-tender. No distension. Normal Bowel Sounds. Back: Non-tender. No deformity or step off. Extremities: Moves all four extremities. Upper extremities: Normal inspection. Normal ROM. Lower extremities: Normal inspection. No edema. Normal ROM. Neurological: Normal cognition. AAOx4. Normal speech. Psychological: Normal affect. Normal Mood. Skin: Warm. Dry. Normal color. (DANIELLE OLSENON) Course - Laboratory Result Diagrams: 10/01/17 22:50 10/01/17 22:50 <ANOOP OLSEN - Last Filed: 10/02/17 00:41> - Laboratory Result Diagrams: 10/01/17 22:50 10/01/17 22:50 <KODY LAL - Last Filed: 10/02/17 03:14> - Re-evaluation Re-evalutation: 10/02/17 03:05 The patient has atypical chest pain as the patient's chest pain is not suggestive of pulmonary embolus, cardiac ischemia, aortic dissection, or other serious etiology. Given the extremely low risk of these diagnoses further testing and evaluation for these possibilities does not appear to be indicated at this time. The patient has been instructed to return if the symptoms worsen or change in any way. (KODY LAL) - Vital Signs Vital signs: Temp Pulse Resp BP Pulse Ox 97.8 F 82 14 124/67 95 10/02/17 03:08 10/01/17 22:18 10/02/17 03:01 10/02/17 03:01 10/02/17 03:01 - Laboratory Laboratory results interpreted by me: 10/01/17 10/01/17 22:50 22:50 WBC 12.9 H RDW 15.1 H Lymphocytes % 47.1 H Absolute Lymphocytes 6.1 H Glucose 129 H Calcium 10.3 H Lipase 534.8 H Discharge <ANOOP OLSEN - Last Filed: 10/02/17 00:41> <KODY LAL - Last Filed: 10/02/17 03:14> - Discharge Clinical Impression: Nonspecific chest pain Condition: Good Disposition: HOME, SELF-CARE Instructions: Chest Pain of Unclear Cause ([facility]), Prilosec (Acid Pump Inhibitor ) ([facility]), Reflux Disease (GERD) ([facility]) Additional Instructions: Your laboratory studies the EKG does not show any signs of cardiac pathology. Your cardiac enzymes are negative. Your EKG does not show any signs of acute ischemia. Please follow-up with your physician in the next 3-5 days. He did have a slight elevation in your lipase which can be due to underlying gastritis. I would recommend taking omeprazole as prescribed. Prescriptions: Omeprazole 20 mg PO DAILY #30 capsule.dr Forms: Return to Work Referrals: REBEKAH WAY MD [Primary Care Provider] - Follow up in 3-5 days Scribe Attestation: 10/02/17 03:13 I personally performed the services described in the documentation, reviewed and edited the documentation which was dictated to the scribe in my presence, and it accurately records my words and actions. (KODY LAL) Scribe Documentation - Scribe Written by Palmae:: Yaakov Dubose, 10/02/2017 0000 acting as scribe for :: Jennie <ANOOP OLSEN - Last Filed: 10/02/17 00:41>
[2017-10-01 23:03] LABS: ABSOLUTE BASOPHILS # (AUTO) 0.1 10^3/uL (0.0-0.2); ABSOLUTE EOSINOPHILS # (AUTO) 0.4 10^3/uL (0.0-0.6); ABSOLUTE LYMPHOCYTES (AUTO) 6.1 10^3/uL (0.5-4.7); ABSOLUTE MONOCYTES (AUTO) 0.9 10^3/uL (0.1-1.4); ABSOLUTE NEUT (AUTO) 5.5 10^3/uL (1.7-8.2); BASOPHILS % (AUTO) 0.9 % (0-2); EOSINOPHILS % (AUTO) 2.8 % (0-6); HEMATOCRIT 44.8 % (37.9-51.0); HEMOGLOBIN 15.4 g/dL (13.5-17.0); LYMPHOCYTES % (AUTO) 47.1 % (13-45); MEAN CORPUSCULAR HEMOGLOBIN 30.1 pg (27.0-33.4); MEAN CORPUSCULAR HGB CONC 34.3 g/dL (32.0-36.0); MEAN CORPUSCULAR VOLUME 88 fl (80-97); MONOCYTES % (AUTO) 6.7 % (3-13); PLATELET COUNT 321 10^3/uL (150-450); RED BLOOD COUNT 5.11 10^6/uL (4.35-5.55); RED CELL DISTRIBUTION WIDTH 15.1 % (11.5-14.0); SEGMENTED NEUTROPHILS % (AUTO) 42.5 % (42-78); TOTAL CELLS COUNTED % (AUTO) 100 %; WHITE BLOOD COUNT 12.9 10^3/uL (4.0-10.5)
[2017-10-01 23:12] LABS: INTERNATIONAL RATION (INR) 0.86; PROTHROMBIN TIME 12.4 SEC (11.4-15.4)
[2017-10-01 23:21] LABS: ALANINE AMINOTRANSFERASE 46 U/L (21-72); ALBUMIN 4.9 g/dL (3.5-5.0); ALKALINE PHOSPHATASE 78 U/L (38-126); ANION GAP 15 (5-19); ASPARTATE AMINO TRANSFERASE 29 U/L (17-59); BILIRUBIN,DIRECT 0.2 mg/dL (0.0-0.4); BILIRUBIN,TOTAL 0.5 mg/dL (0.2-1.3); BLOOD UREA NITROGEN 14 mg/dL (7-20); CALCIUM 10.3 mg/dL (8.4-10.2); CARBON DIOXIDE 24 mmol/L (22-30); CHLORIDE 101 mmol/L (98-107); CREATINE KINASE 117 U/L (55-170); GLUCOSE 129 mg/dL (75-110); LIPASE 534.8 U/L (23-300); POTASSIUM 4.2 mmol/L (3.6-5.0); SODIUM 139.6 mmol/L (137-145); TOTAL PROTEIN 7.9 g/dL (6.3-8.2)
--- NOTE | 2017-10-01 23:22 | RADIOLOGY REPORT (SQ) ---
EXAM DESCRIPTION: CHEST SINGLE VIEW COMPLETED DATE/TIME: 10/01/2017 10:41 pm REASON FOR STUDY: cp COMPARISON: 01/07/2017 EXAM PARAMETERS: NUMBER OF VIEWS: One view. TECHNIQUE: Single frontal radiographic view of the chest acquired. RADIATION DOSE: NA LIMITATIONS: None. FINDINGS: LUNGS AND PLEURA: No acute opacities, masses or pneumothorax. No pleural effusion. MEDIASTINUM AND HILAR STRUCTURES: No masses. Contour normal. HEART AND VASCULAR STRUCTURES: Heart normal in size. Normal vasculature. BONES: No acute findings. HARDWARE: None in the chest. OTHER: No other significant finding. IMPRESSION: NO ACUTE RADIOGRAPHIC FINDING IN THE CHEST. TECHNICAL DOCUMENTATION: JOB ID: [id number] [id number] [employer]- All Rights Reserved
[2017-10-01 23:41] LABS: CREATINE KINASE MB 0.53 ng/mL (<4.55)
[2017-10-01 23:42] LABS: TROPONIN I < 0.012 ng/mL
[2017-10-01] MEDS ORDERED: METOCLOPRAMIDE HCL ORAL SOLN 10 MG/10 ML UDCUP PO ONE (23:57)
[2017-10-01] MEDS ORDERED: MAG HYDROX/AL HYDROX/SIMETH SUSP 30 ML UDCUP PO ONE (23:57)
[2017-10-01] MEDS ORDERED: LIDOCAINE 2% VISCOUS SOLN 20 ML UDCUP PO ONE (23:57)
[2017-10-02 03:04] VITALS: BP 124/67
== END 2017-10-02 03:10 | disposition home or self-care (01) ==
LOC: ER 22:04
DX: R07.9 Chest pain, unspecified (principal); R11.0 Nausea; R06.02 Shortness of breath; E11.9 Type 2 diabetes mellitus without complications; I25.2 Old myocardial infarction
CPT/HCPCS: 99285; 36415; 82553; 82550; 83690; 85025; 85610; 80053; 84484; 85379; 71045; J3490

== ENCOUNTER → 2017-12-16 | Outpatient (CLI) | payer BC ==
--- NOTE | 2017-12-16 17:08 | RADIOLOGY REPORT (SQ) ---
EXAM DESCRIPTION: U/S SCROTUM W/DOPPLER COMPLETED DATE/TIME: 12/16/2017 4:48 pm REASON FOR STUDY: CHRONIC PROSTATIS N41.1 CHRONIC PROSTATITIS COMPARISON: None. TECHNIQUE: Static and realtime hodge scale imaging of the scrotum and testes. Selected color Doppler and spectral images recorded to document blood flow. LIMITATIONS: None. FINDINGS: RIGHT: TESTICLE: Normal size. Normal echotexture. Normal blood flow. No mass. EPIDIDYMIS: There is relative increased perfusion to the epididymis and the possibility of epididymit is should be considered. A small epididymal cyst is identified measuring 9 x 3.5 x 4 mm in diameters . HYDROCELE OR VARICOCELE: Small hydrocele is identified. HERNIA OR EXTRA-TESTICULAR MASS: No. OTHER: No other significant finding. LEFT: TESTICLE: Normal size. Normal echotexture. Normal blood flow. No mass. EPIDIDYMIS: There is relative increased perfusion to the epididymis and the possibility of epididymit is should be considered HYDROCELE OR VARICOCELE: Small hydrocele is identified. HERNIA OR EXTRA-TESTICULAR MASS: No. OTHER: No other significant finding. IMPRESSION: NO EVIDENCE OF TESTICULAR MASS OR TORSION. Possible bilateral epididymitis and clinical correlation is recommended. Small bilateral hydroceles are identified. Other findings as noted abo ve TECHNICAL DOCUMENTATION: JOB ID: [id number] [employer]- All Rights Reserved Reading location - IP/workstation name: [email or web address]
== END ==
LOC: RAD 15:35
PROVIDERS: ATTEND Internal Medicine
DX: N41.1 Chronic prostatitis (principal)
CPT/HCPCS: 76870; 93976

== ENCOUNTER 2018-01-14 14:23 | Observation (INO) | payer BC ==
[2018-01-14] MEDS ORDERED: ASPIRIN 81 MG TABLET, CHEWABLE PO ONE (14:46)
[2018-01-14] MEDS ORDERED: NITROGLYCERIN 0.4 MG/TAB 25 TAB/BOTTLE SL PRN ×2 (14:46→23:15)
--- NOTE | 2018-01-14 14:46 | ER Document Report ---
ED Medical Screen (RME) - General Mode of Arrival: Ambulatory Information source: Patient TRAVEL OUTSIDE OF THE [place].S. IN LAST 30 DAYS: No <ANOOP OLSEN - Last Filed: 01/14/18 16:07> <RENY DAVALOS - Last Filed: 01/14/18 21:03> - General Chief Complaint: Chest Pain > 30 Stated Complaint: CHEST PAIN Time Seen by Provider: 01/14/18 14:40 Notes: Patient is a 57-year-old male that presents to the emergency department today with complaints of left-sided jaw pain. Patient has had a previous [place] and he stated that at that time the only symptom he had was right-sided jaw pain. Patient had one absorbable stent placed on December 27 at [facility] by Dr. Nolasco. Patient complains of slight nausea. Patient denies any shortness of breath or diaphoresis. I have greeted and performed a rapid initial assessment of this patient. A comprehensive ED assessment and evaluation of the patient, analysis of test results, and completion of the medical decision making process will be conducted by additional ED providers. Review of systems: Constitutional: Denies diaphoresis. EENT: Left sided jaw pain. Cardiovascular: Denies chest pain. Respiratory: Denies shortness of breath. Gastrointestinal: Nausea. Genitourinary: No symptoms reported Musculoskeletal: No symptoms reported Skin: No symptoms reported Hematologic/Lymphatic: No symptoms reported Neurological/Psychological: No symptoms reported Yes All other systems reviewed and negative PHYSICAL EXAM GENERAL: Alert, interacts well. No acute distress. HEAD: Normocephalic, atraumatic. EYES: Pupils equal, round, and reactive to light. Extraocular movements intact. ENT: Oral mucosa moist, tongue midline. NECK: Full range of motion. Supple. Trachea midline. LUNGS: Clear to auscultation bilaterally, no wheezes, rales, or rhonchi. No respiratory distress. HEART: Regular rate and rhythm. No murmurs, gallops, or rubs. ABDOMEN: Non-distended. EXTREMITIES: Moves all 4 extremities spontaneously. No edema, radial and dorsalis pedis pulses 2/4 bilaterally. No cyanosis. NEUROLOGICAL: Alert and oriented x3. Normal speech. PSYCH: Normal affect, normal mood. SKIN: Warm, dry, normal turgor. No rashes or lesions noted. (ANOOP OLSEN) - Related Data Allergies/Adverse Reactions: No Known Allergies Allergy (Verified 01/14/18 14:25) Past Medical History - Social History Chew tobacco use (# tins/day): No Drug Abuse: None - Past Medical History Cardiac Medical History: Reports: Hx Heart Attack - December 2016, Hx Hypercholesterolemia - statin d/t [place], Hx Hypertension Pulmonary Medical History: Neurological Medical History: Endocrine Medical History: Reports: Hx Diabetes Mellitus Type 2 Renal/ Medical History: Denies: Hx Peritoneal Dialysis GI Medical History: Reports: Hx Gastroesophageal Reflux Disease, Hx Hiatal Hernia, Hx Ulcer - Gastric ulcer Musculoskeltal Medical History: Skin Medical History: Reports Hx Cellulitis Psychiatric Medical History: Reports: Hx Anxiety Past Surgical History: Reports: Hx Cardiac Catheterization - stent, Other - Benign bladder mass removal. Denies: Hx Pacemaker - Immunizations Immunizations up to date: Yes Hx Diphtheria, Pertussis, Tetanus Vaccination: Yes History of Influenza Vaccine for 05/2017 - 10/2017 Season: No <ANOOP OLSEN - Last Filed: 01/14/18 16:07> - Vital signs Vitals: Temp Pulse Resp BP Pulse Ox 98.7 F 96 18 167/72 H 97 01/14/18 14:34 01/14/18 14:34 01/14/18 14:34 01/14/18 14:34 01/14/18 14:34 Course - Laboratory Result Diagrams: 01/14/18 16:18 01/14/18 16:18 <RENY DAVALOS - Last Filed: 01/14/18 21:03> - Vital Signs Vital signs: Temp Pulse Resp BP Pulse Ox 98.7 F 96 18 167/72 H 98 01/14/18 14:34 01/14/18 14:34 01/14/18 14:34 01/14/18 14:34 01/14/18 14:46 - Laboratory Laboratory results interpreted by me: 01/14/18 01/14/18 16:18 16:18 WBC 12.1 H RDW 14.2 H Glucose 197 H Doctor's Discharge <ANOOP OLSEN - Last Filed: 01/14/18 16:07> <RENY DAVALOS - Last Filed: 01/14/18 21:03> - Discharge Clinical Impression: Chest pain Qualifiers: Chest pain type: unspecified Qualified Code(s): R07.9 - Chest pain, unspecified Condition: Stable Disposition: ADMITTED OBSERVATION Scribe Documentation - Scribe Written by Scribe:: Yaakov Dubose, 01/14/2018 1611 acting as scribe for :: Tiffanie <ANOOP OLSEN - Last Filed: 01/14/18 16:07>
--- NOTE | 2018-01-14 16:22 | RADIOLOGY REPORT (SQ) ---
EXAM DESCRIPTION: CHEST SINGLE VIEW COMPLETED DATE/TIME: 01/14/2018 4:09 pm REASON FOR STUDY: chest pain COMPARISON: 10/01/2017. EXAM PARAMETERS: NUMBER OF VIEWS: One view. TECHNIQUE: Single frontal radiographic view of the chest acquired. RADIATION DOSE: NA LIMITATIONS: None. FINDINGS: LUNGS AND PLEURA: No opacities, masses or pneumothorax. No pleural effusion. MEDIASTINUM AND HILAR STRUCTURES: No masses. Contour normal. HEART AND VASCULAR STRUCTURES: Heart normal in size. Normal vasculature. BONES: No acute findings. HARDWARE: None in the chest. OTHER: No other significant finding. IMPRESSION: NO ACUTE RADIOGRAPHIC FINDING IN THE CHEST. TECHNICAL DOCUMENTATION: JOB ID: [id number] [employer]- All Rights Reserved Reading location - IP/workstation name: [email or web address]
[2018-01-14 16:35] LABS: ABSOLUTE BASOPHILS # (AUTO) 0.1 10^3/uL (0.0-0.2); ABSOLUTE EOSINOPHILS # (AUTO) 0.2 10^3/uL (0.0-0.6); ABSOLUTE LYMPHOCYTES (AUTO) 4.1 10^3/uL (0.5-4.7); ABSOLUTE MONOCYTES (AUTO) 0.8 10^3/uL (0.1-1.4); ABSOLUTE NEUT (AUTO) 6.9 10^3/uL (1.7-8.2); BASOPHILS % (AUTO) 0.5 % (0-2); EOSINOPHILS % (AUTO) 1.7 % (0-6); HEMATOCRIT 44.1 % (37.9-51.0); LYMPHOCYTES % (AUTO) 34.1 % (13-45); MEAN CORPUSCULAR HEMOGLOBIN 29.8 pg (27.0-33.4); MEAN CORPUSCULAR HGB CONC 33.9 g/dL (32.0-36.0); MEAN CORPUSCULAR VOLUME 88 fl (80-97); MONOCYTES % (AUTO) 6.4 % (3-13); PLATELET COUNT 279 10^3/uL (150-450); RED BLOOD COUNT 5.03 10^6/uL (4.35-5.55); RED CELL DISTRIBUTION WIDTH 14.2 % (11.5-14.0); SEGMENTED NEUTROPHILS % (AUTO) 57.3 % (42-78); TOTAL CELLS COUNTED % (AUTO) 100 %; WHITE BLOOD COUNT 12.1 10^3/uL (4.0-10.5)
[2018-01-14 16:50] LABS: ALANINE AMINOTRANSFERASE 65 U/L (21-72); ALBUMIN 4.4 g/dL (3.5-5.0); ALKALINE PHOSPHATASE 70 U/L (38-126); ANION GAP 14 (5-19); ASPARTATE AMINO TRANSFERASE 36 U/L (17-59); BILIRUBIN,DIRECT 0.3 mg/dL (0.0-0.4); BILIRUBIN,TOTAL 0.3 mg/dL (0.2-1.3); BLOOD UREA NITROGEN 17 mg/dL (7-20); CALCIUM 9.9 mg/dL (8.4-10.2); CARBON DIOXIDE 27 mmol/L (22-30); CHLORIDE 101 mmol/L (98-107); CREATINE KINASE 91 U/L (55-170); GLUCOSE 197 mg/dL (75-110); POTASSIUM 4.6 mmol/L (3.6-5.0); SODIUM 142.3 mmol/L (137-145); TOTAL PROTEIN 7.5 g/dL (6.3-8.2)
[2018-01-14 17:01] LABS: CREATINE KINASE MB 0.56 ng/mL (<4.55)
[2018-01-14 17:07] LABS: TROPONIN I < 0.012 ng/mL
[2018-01-14] MEDS ORDERED: MORPHINE SULFATE 10 MG/ML INJ IV ONE (18:16)
[2018-01-14] MEDS ORDERED: MAG HYDROX/AL HYDROX/SIMETH SUSP 30 ML UDCUP PO ONE (18:25)
[2018-01-14] MEDS ORDERED: METOCLOPRAMIDE HCL ORAL SOLN 10 MG/10 ML UDCUP PO ONE (18:25)
[2018-01-14] MEDS ORDERED: LIDOCAINE 2% VISCOUS SOLN 20 ML UDCUP PO ONE (18:25)
--- NOTE | 2018-01-14 18:25 | ER Document Report ---
ED Cardiac - General Chief Complaint: Chest Pain > 30 Stated Complaint: CHEST PAIN Time Seen by Provider: 01/14/18 14:40 Mode of Arrival: Ambulatory Information source: Patient Notes: Patient presents to the ED with complaints of L jaw pain that started at 11AM and has been constant. Denies chest pain, shortness of breath, nausea, vomiting , diaphoresis. Patient does have a history of coronary artery disease, HTN, DM. Patient states that he was seen in [place] in December 2016 for similar jaw pain and was found to have an elevated troponin. His EKG was normal at that time. He states that he never had chest pain, shortness of breath. The cath was done and he was found to have significant disease. Patient states that he had a stent placed. He follows up with Dr. Pedraza. Currently on anticoagulants. TRAVEL OUTSIDE OF THE [place] IN LAST 30 DAYS: No - HPI Patient complains to provider of: Other - Left jaw pain - Related Data Allergies/Adverse Reactions: No Known Allergies Allergy (Verified 01/14/18 14:25) Past Medical History - General Information source: Patient - Social History Smoking Status: Never Smoker Chew tobacco use (# tins/day): No Drug Abuse: None Family History: Reviewed & Not Pertinent, CAD Patient has suicidal ideation: No Patient has homicidal ideation: No - Past Medical History Cardiac Medical History: Reports: Hx Heart Attack - December 2016, Hx Hypercholesterolemia - statin d/t CT, Hx Hypertension Pulmonary Medical History: Neurological Medical History: Endocrine Medical History: Reports: Hx Diabetes Mellitus Type 2 Renal/ Medical History: Denies: Hx Peritoneal Dialysis GI Medical History: Reports: Hx Gastroesophageal Reflux Disease, Hx Hiatal Hernia, Hx Ulcer - Gastric ulcer Musculoskeltal Medical History: Skin Medical History: Reports Hx Cellulitis Psychiatric Medical History: Reports: Hx Anxiety Past Surgical History: Reports: Hx Cardiac Catheterization - stent, Other - Benign bladder mass removal. Denies: Hx Pacemaker - Immunizations Immunizations up to date: Yes Hx Diphtheria, Pertussis, Tetanus Vaccination: Yes Review of Systems - Review of Systems Constitutional: No symptoms reported EENT: No symptoms reported Cardiovascular: No symptoms reported. denies: Chest pain Respiratory: No symptoms reported Gastrointestinal: No symptoms reported Genitourinary: No symptoms reported Male Genitourinary: No symptoms reported Musculoskeletal: Other - Left jaw pain Skin: No symptoms reported Hematologic/Lymphatic: No symptoms reported Neurological/Psychological: No symptoms reported Physical Exam - Vital signs Vitals: Temp Pulse Resp BP Pulse Ox 98.7 F 96 18 167/72 H 97 01/14/18 14:34 01/14/18 14:34 01/14/18 14:34 01/14/18 14:34 01/14/18 14:34 Interpretation: Normal - Notes Notes: PHYSICAL EXAMINATION: GENERAL: Well-appearing, well-nourished and in no acute distress. HEAD: Atraumatic, normocephalic. EYES: Pupils equal round and reactive to light, extraocular movements intact, sclera anicteric, conjunctiva are normal. ENT: Nares patent, oropharynx clear without exudates. Moist mucous membranes. NECK: Normal range of motion, supple without lymphadenopathy LUNGS: Breath sounds clear to auscultation bilaterally and equal. No wheezes rales or rhonchi. HEART: Regular rate and rhythm without murmurs ABDOMEN: Soft, nontender, nondistended abdomen. No guarding, no rebound. No masses appreciated. Musculoskeletal: Normal range of motion, no pitting or edema. No cyanosis. NEUROLOGICAL: Cranial nerves grossly intact. Normal speech, normal gait. Normal sensory, motor exams PSYCH: Normal mood, normal affect. SKIN: Warm, Dry, normal turgor, no rashes or lesions noted. Course - Re-evaluation Re-evalutation: 01/14/18 18:32 Patient reevaluated after obtaining aspirin and nitro. He states that he is currently having left jaw pain. He states that the medication did not help. Symptoms have been constant since 11 AM. EKG was done and does not show any ischemic changes. Troponin is negative. I contacted the shipping and receiving supervisor on-call, . He recommends obtaining a second troponin and if negative admitting to the hospitalist for cardiac rule out. He feels that if the second troponin is positive the patient should be transferred back to [place] where he had a previous cardiac stent placed. 01/14/18 19:55 I contacted . Patient has had 2 negative cardiac enzymes but the shipping and receiving supervisor, Dr. Mary, feels that the patient should still be admitted to the hospitalist for further evaluation as the patient's symptoms are very similar to his previous CT. Dr. Way is agreeable with admitting the patient to Obs- tele bed. Patient currently stable. His pain is reducing with the morphine. Patient is agreeable with admission. - Vital Signs Vital signs: Temp Pulse Resp BP Pulse Ox 98.7 F 96 18 167/72 H 98 01/14/18 14:34 01/14/18 14:34 01/14/18 14:34 01/14/18 14:34 01/14/18 14:46 - Laboratory Result Diagrams: 01/14/18 16:18 01/14/18 16:18 Laboratory results interpreted by me: 01/14/18 01/14/18 16:18 16:18 WBC 12.1 H RDW 14.2 H Glucose 197 H - Diagnostic Test Radiology reviewed: Image reviewed - EKG Interpretation by Wy EKG shows normal: Sinus rhythm Rate: Normal Rhythm: NSR [place]/QRS: No: RBBB, LBBB When compared to previous EKG there are: No significant change Discharge - Discharge Clinical Impression: Chest pain Qualifiers: Chest pain type: unspecified Qualified Code(s): R07.9 - Chest pain, unspecified Condition: Stable Disposition: ADMITTED OBSERVATION Admitting Provider: [facility] Admitted: Telemetry Referrals: REBEKAH WAY MD [Primary Care Provider] - Follow up as needed
--- NOTE | 2018-01-14 22:59 | EKG REPORT ---
SEVERITY:- NORMAL ECG - SINUS RHYTHM : Confirmed by: Delmi Rowland MD 14-Jan-2018 22:58:12
--- NOTE | 2018-01-14 22:59 | EKG REPORT ---
SEVERITY:- NORMAL ECG - SINUS RHYTHM : Confirmed by: Delmi Rowland MD 14-Jan-2018 22:58:05
[2018-01-14] MEDS ORDERED: MORPHINE SULFATE 10 MG/ML INJ IV PRN (23:15)
[2018-01-14] MEDS ORDERED: ONDANSETRON HCL INJ/PF 4 MG/2 ML SDV IV PRN (23:16)
[2018-01-14] MEDS ORDERED: ACETAMINOPHEN 325 MG TABLET PO PRN (23:16)
[2018-01-14] MEDS ORDERED: ZOLPIDEM TARTRATE 5 MG TABLET PO PRN (23:21)
[2018-01-14] MEDS ORDERED: DOCUSATE SODIUM 100 MG CAPSULE PO PRN (23:21)
[2018-01-15] MEDS ORDERED: ZOLPIDEM TARTRATE 5 MG TABLET PO ONE (00:30)
[2018-01-15] MEDS ORDERED: DEXTROSE 40% GEL 15 GM TUBE X 2 PO PRN (00:50)
[2018-01-15] MEDS ORDERED: DEXTROSE 40% GEL 15 GM TUBE PO PRN (00:50)
[2018-01-15] MEDS ORDERED: DEXTROSE 50%-WATER SYRINGE 12.5 GM/25 ML DOSE IV PRN (00:50)
[2018-01-15] MEDS ORDERED: INSULIN LISPRO 100 UNIT/ML 3 ML VIAL SUBCUT PRN (00:50)
[2018-01-15] MEDS ORDERED: GLUCAGON,HUMAN RECOMB 1 MG INJ IM PRN (00:50)
[2018-01-15] MEDS ORDERED: DEXTROSE 50%-WATER SYRINGE 25 GM/50 ML DOSE IV PRN (00:50)
[2018-01-15 01:59] LABS: CREATINE KINASE MB 0.44 ng/mL (<4.55)
[2018-01-15 02:00] LABS: TROPONIN I < 0.012 ng/mL
[2018-01-15 06:48] VITALS: BP 124/58
[2018-01-15 08:35] LABS: ABSOLUTE BASOPHILS # (AUTO) 0.1 10^3/uL (0.0-0.2); ABSOLUTE EOSINOPHILS # (AUTO) 0.3 10^3/uL (0.0-0.6); ABSOLUTE LYMPHOCYTES (AUTO) 3.5 10^3/uL (0.5-4.7); ABSOLUTE MONOCYTES (AUTO) 0.8 10^3/uL (0.1-1.4); ABSOLUTE NEUT (AUTO) 5.9 10^3/uL (1.7-8.2); BASOPHILS % (AUTO) 0.7 % (0-2); EOSINOPHILS % (AUTO) 3.1 % (0-6); HEMATOCRIT 42.3 % (37.9-51.0); HEMOGLOBIN 14.2 g/dL (13.5-17.0); LYMPHOCYTES % (AUTO) 32.9 % (13-45); MEAN CORPUSCULAR HEMOGLOBIN 29.4 pg (27.0-33.4); MEAN CORPUSCULAR HGB CONC 33.6 g/dL (32.0-36.0); MEAN CORPUSCULAR VOLUME 88 fl (80-97); MONOCYTES % (AUTO) 7.7 % (3-13); RED BLOOD COUNT 4.82 10^6/uL (4.35-5.55); RED CELL DISTRIBUTION WIDTH 14.4 % (11.5-14.0); SEGMENTED NEUTROPHILS % (AUTO) 55.6 % (42-78); TOTAL CELLS COUNTED % (AUTO) 100 %; WHITE BLOOD COUNT 10.7 10^3/uL (4.0-10.5)
[2018-01-15 08:44] LABS: ALANINE AMINOTRANSFERASE 61 U/L (21-72); ALBUMIN 3.7 g/dL (3.5-5.0); ALKALINE PHOSPHATASE 60 U/L (38-126); ANION GAP 12 (5-19); ASPARTATE AMINO TRANSFERASE 58 U/L (17-59); BILIRUBIN,DIRECT 0.3 mg/dL (0.0-0.4); BILIRUBIN,TOTAL 0.3 mg/dL (0.2-1.3); BLOOD UREA NITROGEN 21 mg/dL (7-20); CALCIUM 8.7 mg/dL (8.4-10.2); CARBON DIOXIDE 24 mmol/L (22-30); CHLORIDE 105 mmol/L (98-107); CHOLESTEROL 116.07 mg/dL (0-200); GLUCOSE 178 mg/dL (75-110); POTASSIUM 4.2 mmol/L (3.6-5.0); SODIUM 140.5 mmol/L (137-145); TOTAL PROTEIN 6.8 g/dL (6.3-8.2); TRIGLYCERIDES 171 mg/dL (<150)
[2018-01-15 08:50] LABS: CREATINE KINASE MB 0.37 ng/mL (<4.55)
[2018-01-15 08:54] LABS: DIRECT LDL 53 mg/dL (<100)
[2018-01-15 08:57] LABS: VLDL CHOLESTEROL 34.2 mg/dL (10-31)
[2018-01-15 08:59] LABS: PLATELET COUNT 240 10^3/uL (150-450)
--- NOTE | 2018-01-15 09:23 | PDOC H&P ---
History of Present Illness Admission Date/PCP: 01/14/18 20:[address] Patient complains of: Gurjit. jaw pain- worse on left since 11.00 am yesterday. History of Present Illness: SILVANO SIMMONS is a 57 year old male with hx of DM2/HTN/Hyperlipidemia/DM neuropathy/CAD s.p stent/Back pain/BPH who presented to ED for gurjit. jaw pain that started around 11.00 am on day of presentation while at rest, assoc. with nausea. Denied chest pain, dyspnea, palpitations, dizziness, syncope, fever, cough. On account of persistence of symptoms, he came to ER for evaluation and mgt. Past Medical History Cardiac Medical History: Reports: Myocardial Infarction - December 2016, Hyperlipidema - statin d/t [place], Hypertension Pulmonary Medical History: Neurological Medical History: Endocrine Medical History: Reports: Diabetes Mellitus Type 2 GI Medical History: Reports: Gastroesophageal Reflux Disease, Hiatal Hernia Musculoskeltal Medical History: Psychiatric Medical History: Hematology: Denies: Anemia Past Surgical History Past Surgical History: Reports: Cardiac Catheterization - stent, Other - Benign bladder mass removal Denies: Pacemaker Social History Smoking Status: Never Smoker Frequency of Alcohol Use: None Hx Recreational Drug Use: No Hx Prescription Drug Abuse: No Family History Family History: Reviewed & Not Pertinent, CAD Parental Family History Reviewed: Yes Children Family History Reviewed: Yes Sibling(s) Family History Reviewed.: Yes Medication/Allergy Home Medications: Aspirin [Aspirin 81 mg Chewable Tablet] 81 mg PO DAILY 01/14/18 Atorvastatin Calcium [Lipitor 80 mg Tablet] 80 mg PO QHS 01/14/18 Clopidogrel Bisulfate [Plavix 75 mg Tablet] 75 mg PO DAILY 01/14/18 Diphenhydramine HCl [Benadryl] 75 mg PO QHS 01/14/18 Dulaglutide [Trulicity] 1.5 mg SQ MO@1000 01/14/18 Gabapentin [Neurontin] 1,200 mg PO QHS 01/14/18 Glimepiride [Amaryl 4 mg Tablet] 8 mg PO QHS 01/14/18 Insulin Aspart [Novolog Flexpen] 0 unit SUBCUT .SLD SCALE 01/14/18 Insulin Aspart [Novolog Flexpen] 5 unit SUBCUT AC 01/14/18 Insulin Glargine,Hum.rec.anlog [Lantus Solostar] 75 unit SQ BID 01/14/18 Losartan/Hydrochlorothiazide [Losartan-Hctz 50-12.5 mg Tab] 1 tab PO DAILY 01/14 Metformin HCl [Metformin HCl ER] 1,000 mg PO BID 01/14/18 Metoprolol Succinate [Toprol Xl 50 mg Tab.sr] 100 mg PO Q12 01/14/18 Multivitamin [Tab-A-Sofía] 1 tab PO DAILY 01/14/18 [place]-3 Fatty Acids/Fish Oil [Fish Oil 1,000 mg Capsule] 4,000 mg PO DAILY 01/14 Tamsulosin HCl [Flomax 0.4 mg Cap.sr] 0.4 mg PO DAILY 01/14/18 Allergies/Adverse Reactions: No Known Allergies Allergy (Verified 01/14/18 14:25) Review of Systems All systems: as per PMH Constitutional: PRESENT: as per HPI Eyes: PRESENT: as per HPI Ears: PRESENT: as per HPI Nose, Mouth, and Throat: PRESENT: as per HPI Breasts: PRESENT: as per HPI Cardiovascular: PRESENT: as per HPI - Jaw pain Respiratory: PRESENT: as per HPI Gastrointestinal: PRESENT: nausea Genitourinary: PRESENT: as per HPI Musculoskeletal: PRESENT: as per HPI Integumentary: PRESENT: as per HPI Neurological: PRESENT: as per HPI Endocrine: PRESENT: as per HPI Hematologic/Lymphatic: PRESENT: as per HPI Physical Exam Vital Signs: Temp Pulse Resp BP Pulse Ox 98.0 F 92 16 124/58 L 97 01/15/18 04:00 01/15/18 07:00 01/15/18 04:00 01/15/18 04:00 01/15/18 04:00 Intake & Output 01/14/18 01/15/18 01/16/18 06:59 06:59 06:59 Intake Total 0 Balance 0 Weight 109.6 kg General appearance: PRESENT: no acute distress, cooperative, obese, well- developed, well-nourished Head exam: PRESENT: atraumatic, normocephalic Eye exam: PRESENT: EOMI, PERRLA Ear exam: PRESENT: normal external ear exam Mouth exam: PRESENT: neck supple, tongue midline Neck exam: PRESENT: full ROM Respiratory exam: PRESENT: clear to auscultation gurjit, symmetrical Cardiovascular exam: PRESENT: +S1, +S2 Pulses: PRESENT: +2 pedal pulses bilateral GI/Abdominal exam: PRESENT: normal bowel sounds, soft Rectal exam: PRESENT: deferred Extremities exam: PRESENT: full ROM Musculoskeletal exam: PRESENT: ambulatory Neurological exam: PRESENT: alert, awake, oriented to person, oriented to place , oriented to time Psychiatric exam: PRESENT: normal mood Results Laboratory Results: 01/15/18 08:05 01/15/18 08:05 01/15/18 01/15/18 08:05 08:05 WBC 10.7 H RBC 4.82 Hgb 14.2 Hct 42.3 MCV 88 MCH 29.4 MCHC 33.6 RDW 14.4 H Plt Count 240 Seg Neutrophils % 55.6 Lymphocytes % 32.9 Monocytes % 7.7 Eosinophils % 3.1 Basophils % 0.7 Absolute Neutrophils 5.9 Absolute Lymphocytes 3.5 Absolute Monocytes 0.8 Absolute Eosinophils 0.3 Absolute Basophils 0.1 Sodium 140.5 Potassium 4.2 Chloride 105 Carbon Dioxide 24 Anion Gap 12 BUN 21 H Creatinine 0.69 Est GFR ( Amer) > 60 Est GFR (Non-Af Amer) > 60 Glucose 178 H Calcium 8.7 Total Bilirubin 0.3 AST 58 ALT 61 Alkaline Phosphatase 60 Total Protein 6.8 Albumin 3.7 Triglycerides 171 H Cholesterol 116.07 LDL Cholesterol Direct 53 VLDL Cholesterol 34.2 H HDL Cholesterol 33 L 01/15/18 01/15/18 01/15/18 01:21 01:21 08:05 Creatine Kinase 85 73 CK-MB (CK-2) 0.44 Troponin I < 0.012 Impressions: Chest X-Ray 01/14/18 14:46 IMPRESSION: NO ACUTE RADIOGRAPHIC FINDING IN THE CHEST. Assessment & Plan - Diagnosis (1) Chest pain Qualifiers: Chest pain type: unspecified Qualified Code(s): R07.9 - Chest pain, unspecified Is this a current diagnosis for this admission?: Yes Plan: Ct with oxygen by N/C at 2 L/min to keep saturation >95%; NTG 0.4mg q5 s/L prn x3; Morphine 2 mg q4h IV prn; Zofran 4mg q6h IV prn; Cardiac enzymes and EKGx3; Cardiac diet. F/U Dr Fofana on discharge for further risk stratification. (2) Diabetes Qualifiers: Diabetes mellitus type: type 2 Diabetes mellitus chcf insulin use: with chcf use Diabetes mellitus complication status: with skin complications Diabetes mellitus complication detail: with other skin complication Qualified Code(s): E11.628 - Type 2 diabetes mellitus with other skin complications; Z79.4 - exterminator (current) use of insulin; Z79.4 - alf (current) use of insulin; Z79.4 - alf (current) use of insulin; Z79.4 - alf (current) use of insulin Is this a current diagnosis for this admission?: Yes Plan: Ct with slidding scale humalog insulin as per [facility] protocol, Metformin 1000 mg BID PO; Amaryl 8 mg qhs po; Lantus insulin 70 iu BID subcut; Trulicty 0.75 mg qweekly subcut;1800 calorie ADA diet. (3) Hypertension Qualifiers: Hypertension type: essential hypertension Qualified Code(s): I10 - Essential (primary) hypertension Is this a current diagnosis for this admission?: Yes Plan: Ct with Metoprolol succinate 100 mg qd po; Losartan/HCTZ 50/12.5 1 qd po; 2 g sodium diet. (4) Hyperlipidemia Qualifiers: Hyperlipidemia type: unspecified Qualified Code(s): E78.5 - Hyperlipidemia , unspecified Is this a current diagnosis for this admission?: Yes Plan: Ct with Atorvastatin 80 mg qhs ; 200 mg cholesterol diet. (5) Coronary artery disease Qualifiers: Coronary Disease-Associated Artery/Lesion type: unspecified vessel or lesion type [place] vs. transplanted heart: [place] heart Associated angina: with unspecified angina Qualified Code(s): I25.119 - Atherosclerotic heart disease of [place] coronary artery with unspecified angina pectoris Is this a current diagnosis for this admission?: Yes Plan: Ct with Plavix 75 mg qd; Aspirin 81 mg qd po; cardiac diet. (6) Diabetic neuropathy Is this a current diagnosis for this admission?: Yes Plan: Ct with Gabapentin 1200mg qhs po. (7) BPH (benign prostatic hyperplasia) Is this a current diagnosis for this admission?: Yes Plan: Ct with Flomax 0.4 mg qd po. (8) DVT prophylaxis Is this a current diagnosis for this admission?: Yes Plan: Ct with Lovenox 40 mg qd subcut; SCD. - Time Time Spent: 30 to 50 Minutes Smoking Cessation Education: 3 to 10 minutes Medications reviewed and adjusted accordingly: Yes Anticipated discharge: Home Within: within 24 hours
--- NOTE | 2018-01-15 09:45 | PDOC DISCHARGE SUMMARY ---
General - Admit/Disc Date/PCP Admission Date/Primary Care Provider: 01/14/18 20:[address] Discharge Date: 01/15/18 - Discharge Diagnosis (1) Chest pain Is this a current diagnosis for this admission?: Yes (2) Diabetes Is this a current diagnosis for this admission?: Yes (3) Hypertension Is this a current diagnosis for this admission?: Yes (4) Hyperlipidemia Is this a current diagnosis for this admission?: Yes (5) Coronary artery disease Is this a current diagnosis for this admission?: Yes (6) Diabetic neuropathy Is this a current diagnosis for this admission?: Yes (7) BPH (benign prostatic hyperplasia) Is this a current diagnosis for this admission?: Yes (8) DVT prophylaxis Is this a current diagnosis for this admission?: Yes - Additional Information Discharge Diet: As Tolerated Discharge Activity: Activity As Tolerated Home Medications: Aspirin [Aspirin 81 mg Chewable Tablet] 81 mg PO DAILY 01/14/18 Atorvastatin Calcium [Lipitor 80 mg Tablet] 80 mg PO QHS 01/14/18 Clopidogrel Bisulfate [Plavix 75 mg Tablet] 75 mg PO DAILY 01/14/18 Diphenhydramine HCl [Benadryl] 75 mg PO QHS 01/14/18 Dulaglutide [Trulicity] 1.5 mg SQ MO@1000 01/14/18 Gabapentin [Neurontin] 1,200 mg PO QHS 01/14/18 Glimepiride [Amaryl 4 mg Tablet] 8 mg PO QHS 01/14/18 Insulin Aspart [Novolog Flexpen] 0 unit SUBCUT .SLD SCALE 01/14/18 Insulin Aspart [Novolog Flexpen] 5 unit SUBCUT AC 01/14/18 Insulin Glargine,Hum.rec.anlog [Lantus Solostar] 75 unit SQ BID 01/14/18 Losartan/Hydrochlorothiazide [Losartan-Hctz 50-12.5 mg Tab] 1 tab PO DAILY 01/14 Metformin HCl [Metformin HCl ER] 1,000 mg PO BID 01/14/18 Metoprolol Succinate [Toprol Xl 50 mg Tab.sr] 100 mg PO Q12 01/14/18 Multivitamin [Tab-A-Sofía] 1 tab PO DAILY 01/14/18 [place]-3 Fatty Acids/Fish Oil [Fish Oil 1,000 mg Capsule] 4,000 mg PO DAILY 01/14 Tamsulosin HCl [Flomax 0.4 mg Cap.sr] 0.4 mg PO DAILY 01/14/18 History of Present Illness History of Present Illness: SILVANO SIMMONS is a 57 year old male with hx of DM2/HTN/Hyperlipidemia/DM neuropathy/CAD s.p stent/Back pain/BPH who presented to ED for gurjit. jaw pain that started around 11.00 am on day of presentation while at rest, assoc. with nausea. Denied chest pain, dyspnea, palpitations, dizziness, syncope, fever, cough. On account of persistence of symptoms, he came to ER for evaluation and mgt. Hospital Course Hospital Course: He was admitted to telemetry floor for 24 hour observation. Had serial EKG and cardiac enzymes and KS was ruled out. He was put on NTG S/L and Morphine IV and he is no longer having jaw pain and he is stable. He will be discharged home today to follow up with his clerk rating, Dr Fofana for further risk stratification. Physical Exam Vital Signs: Temp Pulse Resp BP Pulse Ox 98.0 F 92 16 124/58 L 97 01/15/18 09:23 01/15/18 09:23 01/15/18 09:23 01/15/18 09:23 01/15/18 09:23 Intake & Output 01/14/18 01/15/18 01/16/18 06:59 06:59 06:59 Intake Total 0 Balance 0 Weight 109.6 kg General appearance: PRESENT: no acute distress, cooperative, obese, well- developed, well-nourished Head exam: PRESENT: atraumatic, normocephalic Eye exam: PRESENT: EOMI, PERRLA Ear exam: PRESENT: normal external ear exam, TM's normal bilaterally Mouth exam: PRESENT: moist, tongue midline Neck exam: PRESENT: full ROM Respiratory exam: PRESENT: clear to auscultation gurjit, symmetrical Cardiovascular exam: PRESENT: +S1, +S2 Pulses: PRESENT: +2 pedal pulses bilateral GI/Abdominal exam: PRESENT: normal bowel sounds, soft Rectal exam: PRESENT: deferred Extremities exam: PRESENT: full ROM Musculoskeletal exam: PRESENT: ambulatory Neurological exam: PRESENT: alert, awake, oriented to person, oriented to place , oriented to time Psychiatric exam: PRESENT: normal mood Results Laboratory Results: 01/15/18 08:05 01/15/18 08:05 01/15/18 01/15/18 01/15/18 08:05 08:05 08:05 WBC 10.7 H RBC 4.82 Hgb 14.2 Hct 42.3 MCV 88 MCH 29.4 MCHC 33.6 RDW 14.4 H Plt Count 240 Seg Neutrophils % 55.6 Lymphocytes % 32.9 Monocytes % 7.7 Eosinophils % 3.1 Basophils % 0.7 Absolute Neutrophils 5.9 Absolute Lymphocytes 3.5 Absolute Monocytes 0.8 Absolute Eosinophils 0.3 Absolute Basophils 0.1 Sodium 140.5 Potassium 4.2 Chloride 105 Carbon Dioxide 24 Anion Gap 12 BUN 21 H Creatinine 0.69 Est GFR ( Amer) > 60 Est GFR (Non-Af Amer) > 60 Glucose 178 H Calcium 8.7 Total Bilirubin 0.3 AST 58 ALT 61 Alkaline Phosphatase 60 Total Protein 6.8 Albumin 3.7 Triglycerides 171 H Cholesterol 116.07 LDL Cholesterol Direct 53 VLDL Cholesterol 34.2 H HDL Cholesterol 33 L TSH 1.57 01/15/18 01/15/18 01/15/18 01:21 01:21 08:05 Creatine Kinase 85 73 CK-MB (CK-2) 0.44 Troponin I < 0.012 Impressions: Chest X-Ray 01/14/18 14:46 IMPRESSION: NO ACUTE RADIOGRAPHIC FINDING IN THE CHEST. Qualifiers - * PATIENT BEING DISCHARGED WITH ANY OF THE FOLLOWING DIAGNOSIS: No
[2018-01-15] MEDS ORDERED: LANSOPRAZOLE 30 MG TAB.RAP.DR PO SCH (10:00)
[2018-01-15] MEDS ORDERED: ENOXAPARIN SODIUM INJ 40 MG/0.4 ML DISP.SYRIN SUBCUT SCH (10:00)
[2018-01-15 10:16] LABS: TROPONIN I < 0.012 ng/mL
--- NOTE | 2018-01-15 21:49 | EKG REPORT ---
SEVERITY:- NORMAL ECG - SINUS RHYTHM : Confirmed by: Delmi Rowland MD 15-Jan-2018 21:49:12
--- NOTE | 2018-01-15 21:51 | EKG REPORT ---
SEVERITY:- NORMAL ECG - SINUS RHYTHM : Confirmed by: Delmi Rowland MD 15-Jan-2018 21:49:19
== END 2018-01-15 11:45 | disposition home or self-care (01) ==
LOC: ER 14:23 → EH 20:32 → 4N 23:45
PROVIDERS: ADMIT Internal Medicine; ATTEND Internal Medicine
DX: R07.9 Chest pain, unspecified (principal); E11.40 Type 2 diabetes mellitus with diabetic neuropathy, unspecified; I10 Essential (primary) hypertension; E78.5 Hyperlipidemia, unspecified; I25.10 Atherosclerotic heart disease of native coronary artery without angina pectoris; N40.0 Benign prostatic hyperplasia without lower urinary tract symptoms; M54.9 Dorsalgia, unspecified; R68.84 Jaw pain; R11.0 Nausea; E11.628 Type 2 diabetes mellitus with other skin complications; I25.2 Old myocardial infarction; R79.89 Other specified abnormal findings of blood chemistry; Z79.899 Other long term (current) drug therapy; Z95.5 Presence of coronary angioplasty implant and graft; Z82.49 Family history of ischemic heart disease and other diseases of the circulatory system; Z79.82 Long term (current) use of aspirin; Z79.02 Long term (current) use of antithrombotics/antiplatelets; Z79.4 Long term (current) use of insulin; Z87.11 Personal history of peptic ulcer disease
CPT/HCPCS: 93005 ×2; 99285; 96374; 36415 ×2; 82553 ×2; 82962; 82550 ×2; 84443; 85025 ×2; 80053 ×2; 84484 ×2; 83036; 80061; 71045; 93010 ×2; G0378; J3490; J2270 ×2

== ENCOUNTER → 2018-01-22 | Outpatient (CLI) | payer BC ==
--- NOTE | 2018-01-22 17:00 | RADIOLOGY REPORT (SQ) ---
EXAM DESCRIPTION: HIPS BILATERAL COMPLETED DATE/TIME: 01/22/2018 4:35 pm REASON FOR STUDY: YANELI POST-TRAUMATIC OSTEOARTHRITIS OF HIP; YANELI PRIMARY OSTEOARTHRITIS OF KNE M16.4 BILATERAL POST-TRAUMATIC OSTEOARTHRITIS OF HIP M17.0 BILATERAL PRIMARY OSTEOARTHRITIS OF KNEE COMPARISON: None. NUMBER OF VIEWS: Two views TECHNIQUE: AP pelvis and additional frog-leg view of both hips. LIMITATIONS: None. FINDINGS: MINERALIZATION: Normal. HIPS: No acute fracture or dislocation. No worrisome bone lesions. PELVIS AND SACRUM: No acute fracture or dislocation. No worrisome bone lesions. PUBIS AND ISCHIUM: No acute fracture. LOWER LUMBAR SPINE: No significant findings as visualized. SOFT TISSUES: No findings. OTHER: No other significant finding. IMPRESSION: NEGATIVE STUDY OF THE PELVIS AND HIPS. TECHNICAL DOCUMENTATION: JOB ID: [id number] [employer]- All Rights Reserved Reading location - IP/workstation name: [email or web address]
--- NOTE | 2018-01-22 17:01 | RADIOLOGY REPORT (SQ) ---
EXAM DESCRIPTION: KNEE BILAT AP UPRIGHT COMPLETED DATE/TIME: 01/22/2018 4:35 pm REASON FOR STUDY: YANELI POST-TRAUMATIC OSTEOARTHRITIS OF HIP; YANELI PRIMARY OSTEOARTHRITIS OF KNE M16.4 BILATERAL POST-TRAUMATIC OSTEOARTHRITIS OF HIP M17.0 BILATERAL PRIMARY OSTEOARTHRITIS OF KNEE COMPARISON: None. NUMBER OF VIEWS: One view. TECHNIQUE: AP standing bilateral knees. LIMITATIONS: None. FINDINGS: MINERALIZATION: Normal. RIGHT KNEE BONES: No acute fracture. No worrisome bone lesions. MEDIAL COMPARTMENT: No significant osteophytes. Mild joint space narrowing. No chondrocalcinosis. LATERAL COMPARTMENT: No significant osteophytes. No joint space narrowing. No chondrocalcinosis. LEFT KNEE BONES: No acute fracture. No worrisome bone lesions. MEDIAL COMPARTMENT: No significant osteophytes. Mild joint space narrowing. No chondrocalcinosis. LATERAL COMPARTMENT: No significant osteophytes. No joint space narrowing. No chondrocalcinosis. IMPRESSION: MILD MEDIAL JOINT SPACE NARROWING IN BOTH KNEES. NO SIGNIFICANT OSTEOPHYTES. NO OTHER SIGNIFICANT FINDINGS. TECHNICAL DOCUMENTATION: JOB ID: [id number] [employer]- All Rights Reserved Reading location - IP/workstation name: [email or web address]
== END ==
LOC: RAD 16:08
PROVIDERS: ATTEND Internal Medicine
DX: M16.4 Bilateral post-traumatic osteoarthritis of hip (principal); M17.0 Bilateral primary osteoarthritis of knee
CPT/HCPCS: 73522; 73565

== ENCOUNTER 2018-12-05 22:18 | Observation (INO) | payer BC ==
--- NOTE | 2018-12-05 22:28 | ER Document Report ---
ED General - General Stated Complaint: CHEST PAIN Time Seen by Provider: 12/05/18 22:25 Primary Care Provider: REBEKAH WAY MD [Primary Care Provider] - Follow up as needed Notes: Patient is a 58-year-old male who presents with complaints of pressure in the chest. He says the pain started as pain going into the right side of the neck. And then went into his chest and he feels like there is a vice around his chest. He had a [place] 2 years ago. He had a stent placed in [place]. He denies any fevers. No vomiting. Some mild shortness of breath. No abdominal pain. No other complaints this time. Was given aspirin and nitro and a months. This did not help this pain. No other complaints at this time. His residential support worker is Dr. Pedraza. His primary care doctor is Dr. Way. TRAVEL OUTSIDE OF THE [place] IN LAST 30 DAYS: No - Related Data Allergies/Adverse Reactions: No Known Allergies Allergy (Verified 01/14/18 14:25) Past Medical History - Social History Smoking Status: Unknown if Ever Smoked Frequency of alcohol use: None Drug Abuse: None Family History: Reviewed & Not Pertinent, CAD - Past Medical History Cardiac Medical History: Reports: Hx Heart Attack - December 2016, Hx Hypercholesterolemia - statin d/t [place], Hx Hypertension Pulmonary Medical History: Neurological Medical History: Endocrine Medical History: Reports: Hx Diabetes Mellitus Type 2 Renal/ Medical History: Denies: Hx Peritoneal Dialysis GI Medical History: Reports: Hx Gastroesophageal Reflux Disease, Hx Hiatal Hernia, Hx Ulcer - Gastric ulcer Musculoskeletal Medical History: Skin Medical History: Reports Hx Cellulitis Psychiatric Medical History: Reports: Hx Anxiety Past Surgical History: Reports: Hx Cardiac Catheterization - stent, Other - George gn bladder mass removal. Denies: Hx Pacemaker - Immunizations Immunizations up to date: Yes Hx Diphtheria, Pertussis, Tetanus Vaccination: Yes Review of Systems - Review of Systems Notes: My Normal Review Basic REVIEW OF SYSTEMS: CONSTITUTIONAL : Denies fever, chills, or sweats. Denies recent illness. EENT: Denies eye, ear, throat, or mouth pain or symptoms. Denies nasal or sinus congestion. CARDIOVASCULAR: Chest pain RESPIRATORY: Denies cough, cold, or chest congestion. Denies shortness of breath, difficulty breathing, or wheezing. GASTROINTESTINAL: Denies abdominal pain. Denies nausea, vomiting, or diarrhea. GENITOURINARY: Denies difficulty urinating, painful urination, burning, frequency, or blood in urine. MUSCULOSKELETAL: Denies back pain or joint pain or swelling. SKIN: Denies rash or skin lesions. NEUROLOGICAL: Denies altered mental status or loss of consciousness. Denies headache. Denies weakness or paralysis or loss of use of either side. Denies problems with gait or speech. Denies sensory or motor loss. ALL OTHER SYSTEMS REVIEWED AND NEGATIVE. Physical Exam - Vital signs Vitals: Resp Pulse Ox 20 95 12/05/18 22:20 12/05/18 22:20 - Notes Notes: General Appearance: Well nourished, alert, cooperative, no acute distress, no obvious discomfort. Vitals: reviewed, See vital signs table. Head: no swelling or tenderness to the head Eyes: PERRL, EOMI, Conjuctiva clear Mouth: No decreasd moisture Neck: Supple, no neck tenderness, No thyromegaly Lungs: No wheezing, No rales, No rhonci, No accessory muscle use, good air exchange bilaterally. Heart: Slightly tachycardic rate, Regular rythm, No murmur, no rub Abdomen: Normal BS, soft, No rigidity, No abdominal tenderness, No guarding, no rebound, no abdominal masses, no organomegaly Extremities: strength 5/5 in all extremities, good pulses in all extremities, no swelling or tenderness in the extremities, no edema. Skin: warm, dry, appropriate color, no rash Neuro: speech clear, oriented x 3, normal affect, responds appropriately to questions. Course - Re-evaluation Re-evalutation: 12/05/18 22:39 Patient is having somatic chest pain. He is little tachycardic. I will not treat his rate just yet as I do not know if this is potentially his heart for can be potentially PE. Will wait for his blood work come back and determine whether or not we need to go forward CT of the chest. 12/06/18 00:34 Patient's chest tightness has resolved. I am getting a repeat troponin to make sure is not elevating. 12/06/18 03:13 Chest pain is still resolved. Repeat troponin is negative. Based on his history of previous stenting and ongoing chest pain when he first arrived I thi nk is appropriate to admit him for observation for continued work-up. Heart score is 4. I did speak with the hospitalist, Dr. Fagan, who agrees to evaluate the patient for admission. Dictation of this chart was performed using voice recognition software; therefore, there may be some unintended grammatical errors. - Vital Signs Vital signs: Temp Pulse Resp BP Pulse Ox 98.8 F 22 H 148/66 H 92 12/05/18 22:46 12/05/18 22:30 12/05/18 22:30 12/05/18 22:30 - Laboratory Result Diagrams: 12/05/18 22:35 12/05/18 22:35 Laboratory results interpreted by me: 12/05/18 12/05/18 22:35 22:35 WBC 12.9 H RDW 15.1 H Glucose 264 H AST 15 L ALT 20 L - EKG Interpretation by Me Additional EKG results interpreted by me: 12/05/18 22:27 EKG is reviewed and interpreted by me. EKG shows sinus tachycardia with rate of [address] segment elevation or depression. No ischemic T wave inversions. CT interval, QRS duration, QT intervals are within normal range. 12/06/18 01:19 EKG #2 is reviewed and interpreted by me. EKG shows sinus rhythm with a rate of [address] segment elevation or depression. No ischemic T wave inversions. CT interval, QRS duration, QT intervals are within normal range. No old EKG available for comparison. Discharge - Discharge Clinical Impression: Chest pain Qualifiers: Chest pain type: unspecified Qualified Code(s): R07.9 - Chest pain, unspecified Condition: Stable Disposition: ADMITTED OBSERVATION Admitting Provider: Rylan (Hospitalist) Unit Admitted: Telemetry Referrals: REBEKAH WAY MD [Primary Care Provider] - Follow up as needed
[2018-12-05] MEDS ORDERED: MORPHINE SULFATE 10 MG/ML INJ IV ONE ×2 (22:36→23:48)
[2018-12-05] MEDS ORDERED: NITROGLYCERIN 2% OINTMENT 1 GM PACKET TP ONE (22:36)
[2018-12-05 22:51] LABS: ABSOLUTE BASOPHILS # (AUTO) 0.1 10^3/uL (0.0-0.2); ABSOLUTE EOSINOPHILS # (AUTO) 0.3 10^3/uL (0.0-0.6); ABSOLUTE LYMPHOCYTES (AUTO) 3.8 10^3/uL (0.5-4.7); ABSOLUTE MONOCYTES (AUTO) 0.8 10^3/uL (0.1-1.4); ABSOLUTE NEUT (AUTO) 7.9 10^3/uL (1.7-8.2); BASOPHILS % (AUTO) 0.6 % (0-2); EOSINOPHILS % (AUTO) 2.1 % (0-6); HEMATOCRIT 44.6 % (37.9-51.0); HEMOGLOBIN 15.3 g/dL (13.5-17.0); LYMPHOCYTES % (AUTO) 29.6 % (13-45); MEAN CORPUSCULAR HEMOGLOBIN 30.5 pg (27.0-33.4); MEAN CORPUSCULAR HGB CONC 34.2 g/dL (32.0-36.0); MEAN CORPUSCULAR VOLUME 89 fl (80-97); MONOCYTES % (AUTO) 6.4 % (3-13); PLATELET COUNT 275 10^3/uL (150-450); RED BLOOD COUNT 5.01 10^6/uL (4.35-5.55); RED CELL DISTRIBUTION WIDTH 15.1 % (11.5-14.0); SEGMENTED NEUTROPHILS % (AUTO) 61.3 % (42-78); TOTAL CELLS COUNTED % (AUTO) 100 %; WHITE BLOOD COUNT 12.9 10^3/uL (4.0-10.5)
[2018-12-05 23:07] LABS: ALANINE AMINOTRANSFERASE 20 U/L (21-72); ALKALINE PHOSPHATASE 104 U/L (38-126); ANION GAP 13 (5-19); ASPARTATE AMINO TRANSFERASE 15 U/L (17-59); BILIRUBIN,DIRECT 0.3 mg/dL (0.0-0.4); BILIRUBIN,TOTAL 0.3 mg/dL (0.2-1.3); BLOOD UREA NITROGEN 13 mg/dL (7-20); CALCIUM 9.7 mg/dL (8.4-10.2); CARBON DIOXIDE 24 mmol/L (22-30); CHLORIDE 103 mmol/L (98-107); GLUCOSE 264 mg/dL (75-110); SODIUM 140.2 mmol/L (137-145); TOTAL PROTEIN 7.2 g/dL (6.3-8.2)
[2018-12-05] MEDS ORDERED: NORMAL SALINE 500 ML IV ONE (23:20)
--- NOTE | 2018-12-05 23:53 | RADIOLOGY REPORT (SQ) ---
EXAM DESCRIPTION: XR CHEST 1 VIEW COMPLETED DATE/TME: 12/05/2018 22:36 CLINICAL HISTORY: 58 years, Male, chest pain COMPARISON: Multiple priors, most recent from 01/14/2018 NUMBER OF VIEWS: One TECHNIQUE: Single frontal view of the chest was obtained portably LIMITATIONS: None. FINDINGS: Cardiac and mediastinal contours are normal in appearance. Lungs are clear. No pleural effusion or pneumothorax. IMPRESSION: No acute disease. copyright 2010 [employer]- All Rights Reserved
--- NOTE | 2018-12-06 00:22 | RADIOLOGY REPORT (SQ) ---
EXAM DESCRIPTION: CT CHEST ANGIOGRAPHY WITHOUT THEN WITH IV CONTRAST COMPLETED DATE/TME: 12/05/2018 23:20 CLINICAL HISTORY: 58 years, Male, chest pain, tachycardia COMPARISON: Prior CT chest dated 06/21/2014 TECHNIQUE: Additional technique is provided: CT chest angiography was performed following intravenous administration of contrast. Multiplanar reformatted images were provided. 3-D reformatted images were performed on an independent workstation (to include sagittal and coronal MIPS). Images stored on PACS. All CT scanners at this facility use dose modulation, iterative reconstruction, and/or weight based dosing when appropriate to reduce radiation dose to as low as reasonably achievable (ALARA). [facility]: Dose Right [facility]: CareDose [facility]: Dose Right [facility]: Teradose 4D [facility]: [employer] LIMITATIONS: None. FINDINGS: Central airways are patent. Lungs are clear. Mediastinal windows show no suspicious mediastinal lymph node enlargement. However, there is a mildly prominent right hilar lymph node measuring 1.1 x 1.3 cm in size on image 49 of series 3, nonspecific though unchanged from 06/21/2014 and likely benign. Heart and great vessels show no suspicious abnormality. The study is adequate for the evaluation of pulmonary emboli. No filling defects are identified to the proximal segmental level. Limited evaluation of the upper abdomen reveals a few pancreatic parenchymal calcifications. In addition, there is a fat-containing lesion about the right adrenal gland, corresponding to a benign myelolipoma. No additional suspicious findings are evident within the imaged upper abdomen. Bone windows show no destructive osseous lesions. IMPRESSION: No evidence of pulmonary embolism or other acute abnormality within the chest. Pancreatic parenchymal calcifications, a finding which can be associated with chronic calcific pancreatitis. TECHNICAL DOCUMENTATION: Quality ID # [id number]: Final reports with documentation of one or more dose reduction techniques (e.g., Automated exposure control, adjustment of the mA and/or kV according to patient size, use of iterative reconstruction technique) copyright 2011 [employer]- All Rights Reserved
[2018-12-06] MEDS ORDERED: NITROGLYCERIN 0.4 MG/TAB 25 TAB/BOTTLE SL PRN (03:12)
[2018-12-06] MEDS ORDERED: CALCIUM CARBONATE 500 MG TAB.CHEW ONE (03:54)
[2018-12-06] MEDS ORDERED: MAG HYDROX/AL HYDROX/SIMETH SUSP 30 ML UDCUP ONE (03:57)
[2018-12-06] MEDS ORDERED: LIDOCAINE 2% VISCOUS SOLN 20 ML UDCUP ONE (03:57)
[2018-12-06] MEDS ORDERED: METOCLOPRAMIDE HCL ORAL SOLN 10 MG/10 ML UDCUP ONE (03:57)
[2018-12-06] MEDS ORDERED: CALCIUM CARBONATE 500 MG TABLET PO ONE (04:01)
[2018-12-06] MEDS ORDERED: LIDOCAINE 2% VISCOUS SOLN 20 ML UDCUP PO ONE (04:01)
[2018-12-06] MEDS ORDERED: METOCLOPRAMIDE HCL ORAL SOLN 10 MG/10 ML UDCUP PO ONE (04:02)
[2018-12-06] MEDS ORDERED: MAG HYDROX/AL HYDROX/SIMETH SUSP 30 ML UDCUP PO ONE (04:02)
[2018-12-06] MEDS: ATORVASTATIN CALCIUM 80 MG TABLET PO SCH ×2 (05:04→21:25)
--- NOTE | 2018-12-06 05:07 | PDOC H&P ---
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 Patient presents with sudden onset of right sided neck pain followed by retrosternal chest pain 3 out of 5 intensity associated with palpitations, tachycardia and diaphoresis. In the emergency room he is found to have an unremarkable work-up including CTA of the chest revealing known stable cam lymph node. While in the emergency room is had several episodes of chest pain without EKG changes or elevation in cardiac enzymes. He receives symptomatic management and a GI cocktail given history of uncontrolled GERD, excessive caffeine and tobacco dependence for likely esophageal spasm. Past Medical History Cardiac Medical History: Reports: Myocardial Infarction - December 2016, Hyperlipidema - statin d/t [place], Hypertension Pulmonary Medical History: Neurological Medical History: Endocrine Medical History: Reports: Diabetes Mellitus Type 2 GI Medical History: Reports: Gastroesophageal Reflux Disease, Hiatal Hernia Musculoskeltal Medical History: Psychiatric Medical History: Reports: Tobacco Dependency Hematology: Denies: Anemia Past Surgical History Past Surgical History: Reports: Cardiac Catheterization - stent, Other - Benign bladder mass removal Denies: Pacemaker Social History Information Source: Patient Smoking Status: Unknown if Ever Smoked Frequency of Alcohol Use: None Hx Recreational Drug Use: No Drugs: None Hx Prescription Drug Abuse: No - Advance Directive Resuscitation Status: Full Code Family History Family History: CAD Parental Family History Reviewed: Yes Children Family History Reviewed: Yes Sibling(s) Family History Reviewed.: Yes Medication/Allergy Home Medications: Aspirin [Aspirin 81 mg Chewable Tablet] 81 mg PO DAILY 01/14/18 Atorvastatin Calcium [Lipitor 80 mg Tablet] 80 mg PO QHS 01/14/18 Clopidogrel Bisulfate [Plavix 75 mg Tablet] 75 mg PO DAILY 01/14/18 Diphenhydramine HCl [Benadryl] 75 mg PO QHS 01/14/18 Dulaglutide [Trulicity] 1.5 mg SQ MO@1000 01/14/18 Gabapentin [Neurontin] 1,200 mg PO QHS 01/14/18 Glimepiride [Amaryl 4 mg Tablet] 8 mg PO QHS 01/14/18 Insulin Aspart [Novolog Flexpen] 0 unit SUBCUT .SLD SCALE 01/14/18 Insulin Aspart [Novolog Flexpen] 5 unit SUBCUT AC 01/14/18 Insulin Glargine,Hum.rec.anlog [Lantus Solostar] 75 unit SQ BID 01/14/18 Losartan/Hydrochlorothiazide [Losartan-Hctz 50-12.5 mg Tab] 1 tab PO DAILY 01/14/18 Metformin HCl [Metformin HCl ER] 1,000 mg PO BID 01/14/18 Metoprolol Succinate [Toprol Xl 50 mg Tab.sr] 100 mg PO Q12 01/14/18 Multivitamin [Tab-A-Sofía] 1 tab PO DAILY 01/14/18 [place]-3 Fatty Acids/Fish Oil [Fish Oil 1,000 mg Capsule] 4,000 mg PO DAILY 01/14/18 Tamsulosin HCl [Flomax 0.4 mg Cap.sr] 0.4 mg PO DAILY 01/14/18 Allergies/Adverse Reactions: No Known Allergies Allergy (Verified 01/14/18 14:25) Review of Systems Constitutional: ABSENT: chills, fever(s), headache(s), weight gain, weight loss Eyes: ABSENT: visual disturbances Ears: ABSENT: hearing changes Cardiovascular: ABSENT: chest pain, dyspnea on exertion, edema, orthropnea, palpitations Respiratory: ABSENT: cough, hemoptysis Gastrointestinal: ABSENT: abdominal pain, constipation, diarrhea, hematemesis, hematochezia, nausea, vomiting Genitourinary: ABSENT: dysuria, hematuria Musculoskeletal: ABSENT: joint swelling Integumentary: ABSENT: rash, wounds Neurological: ABSENT: abnormal gait, abnormal speech, confusion, dizziness, focal weakness, syncope Psychiatric: ABSENT: anxiety, depression, homidical ideation, suicidal ideation Endocrine: ABSENT: cold intolerance, heat intolerance, polydipsia, polyuria Hematologic/Lymphatic: ABSENT: easy bleeding, easy bruising Physical Exam Vital Signs: Temp Pulse Resp BP Pulse Ox 98.8 F 24 H 123/58 L 97 12/05/18 22:46 12/06/18 04:00 12/06/18 01:01 12/06/18 04:00 Intake & Output 12/04/18 12/05/18 12/06/18 11:59 11:59 11:59 Weight 111.13 kg General appearance: PRESENT: no acute distress, well-developed, well-nourished Head exam: PRESENT: atraumatic, normocephalic Eye exam: PRESENT: conjunctiva pink, EOMI, PERRLA. ABSENT: scleral icterus Ear exam: PRESENT: normal external ear exam Mouth exam: PRESENT: moist, tongue midline Neck exam: ABSENT: carotid bruit, JVD, lymphadenopathy, thyromegaly Respiratory exam: PRESENT: clear to auscultation gurjit. ABSENT: rales, rhonchi, wheezes Cardiovascular exam: PRESENT: RRR. ABSENT: diastolic murmur, rubs, systolic murmur Pulses: PRESENT: normal dorsalis pedis pul Vascular exam: PRESENT: normal capillary refill GI/Abdominal exam: PRESENT: normal bowel sounds, soft. ABSENT: distended, guarding, mass, organolmegaly, rebound, tenderness Rectal exam: PRESENT: deferred Extremities exam: PRESENT: full ROM. ABSENT: calf tenderness, clubbing, pedal edema Neurological exam: PRESENT: alert, awake, oriented to person, oriented to place, oriented to time, oriented to situation, CN II-XII grossly intact. ABSENT: motor sensory deficit Psychiatric exam: PRESENT: appropriate affect, normal mood. ABSENT: homicidal ideation, suicidal ideation Skin exam: PRESENT: dry, intact, warm. ABSENT: cyanosis, rash Results Laboratory Results: 12/05/18 22:35 12/05/18 22:35 12/05/18 12/05/18 22:35 22:35 WBC 12.9 H RBC 5.01 Hgb 15.3 Hct 44.6 MCV 89 MCH 30.5 MCHC 34.2 RDW 15.1 H Plt Count 275 Seg Neutrophils % 61.3 Lymphocytes % 29.6 Monocytes % 6.4 Eosinophils % 2.1 Basophils % 0.6 Absolute Neutrophils 7.9 Absolute Lymphocytes 3.8 Absolute Monocytes 0.8 Absolute Eosinophils 0.3 Absolute Basophils 0.1 Sodium 140.2 Potassium 4.0 Chloride 103 Carbon Dioxide 24 Anion Gap 13 BUN 13 Creatinine 0.67 Est GFR ( Amer) > 60 Est GFR (Non-Af Amer) > 60 Glucose 264 H Calcium 9.7 Total Bilirubin 0.3 AST 15 L ALT 20 L Alkaline Phosphatase 104 Total Protein 7.2 Albumin 4.0 12/05/18 12/06/18 22:35 01:25 Troponin I < 0.012 < 0.012 Impressions: Chest X-Ray 12/05/18 22:36 IMPRESSION: No acute disease. copyright 2010 [employer]- All Rights Reserved Chest/Abdomen CTA 12/05/18 23:20 IMPRESSION: No evidence of pulmonary embolism or other acute abnormality within the chest. Pancreatic parenchymal calcifications, a finding which can be associated with chronic calcific pancreatitis. TECHNICAL DOCUMENTATION: Quality ID # 436: Final reports with documentation of one or more dose reduction techniques (e.g., Automated exposure control, adjustment of the mA and/or kV according to patient size, use of iterative reconstruction technique) copyright 2010 [employer]- All Rights Reserved Assessment and Plan - Diagnosis (1) Chest pain Qualifiers: Chest pain type: unspecified Qualified Code(s): R07.9 - Chest pain, unspecified Is this a current diagnosis for this admission?: Yes Plan: Atypical chest pain though the patient's pain is atypical there are multiple risk factors for coronary artery disease and subsequently will observe and evaluation of acute coronary syndrome versus coronary artery disease with anginal equivalents. Cardiac monitoring blood pressure Q6 hours ,TSH, lipid profile, serial cardiac enzymes and cardiac stress test (2) Esophageal spasm Is this a current diagnosis for this admission?: Yes Plan: GI cocktail as needed, education for limiting caffeine and tobacco and avoidance of reclining after eating. (3) Diabetes Is this a current diagnosis for this admission?: Yes Plan: Half outpatient regiment with exception to metformin, Humalog sliding scale as needed (4) Hypertension Qualifiers: Is this a current diagnosis for this admission?: Yes Plan: Nitro and ANGEL inhibitor - Time Time Spent with patient: 35 or more minutes - Inpatient Certification Medical Necessity: Need Close Monitoring Due to Risk of Patient Decompensation
[2018-12-06] MEDS: ACETAMINOPHEN 325 MG TABLET PO PRN ×3 (06:16→20:02)
--- NOTE | 2018-12-06 06:29 | EKG REPORT ---
SEVERITY:- OTHERWISE NORMAL ECG - SINUS TACHYCARDIA : Confirmed by: Anthony Goldstein MD 06-Dec-2018 06:29:18
--- NOTE | 2018-12-06 06:29 | EKG REPORT ---
SEVERITY:- NORMAL ECG - SINUS RHYTHM : Confirmed by: Anthony Goldstein MD 06-Dec-2018 06:28:50
--- NOTE | 2018-12-06 06:29 | EKG REPORT ---
SEVERITY:- NORMAL ECG - SINUS RHYTHM : Confirmed by: Anthony Goldstein MD 06-Dec-2018 06:29:03
[2018-12-06] MEDS: ASPIRIN 81 MG TABLET, CHEWABLE PO SCH (10:10)
[2018-12-06] MEDS: CLOPIDOGREL BISULFATE 75 MG TABLET PO SCH (10:10)
[2018-12-06] MEDS ORDERED: GLUCAGON,HUMAN RECOMB 1 MG INJ IM PRN (10:30)
[2018-12-06] MEDS ORDERED: DEXTROSE 50%-WATER SYRINGE 25 GM/50 ML DOSE IV PRN (10:30)
[2018-12-06] MEDS ORDERED: DEXTROSE 50%-WATER SYRINGE 12.5 GM/25 ML DOSE IV PRN (10:30)
[2018-12-06] MEDS ORDERED: DEXTROSE 40% GEL 15 GM TUBE PO PRN (10:30)
[2018-12-06] MEDS ORDERED: DEXTROSE 40% GEL 15 GM TUBE X 2 PO PRN (10:30)
[2018-12-06] MEDS: ISOSORBIDE MONONITRATE 20 MG TABLET PO SCH ×2 (10:33→17:30)
[2018-12-06] MEDS: INSULIN LISPRO 100 UNIT/ML 3 ML VIAL SUBCUT SCH ×3 (11:25→21:08)
[2018-12-06] MEDS: INSULIN GLARGINE,HUM.REC.ANLOG 1,000 UNIT/10 ML VIAL SUBCUT SCH ×2 (11:47→21:25)
[2018-12-06] MEDS: GABAPENTIN 300 MG CAPSULE PO SCH (13:04)
[2018-12-06] MEDS ORDERED: NICOTINE 21 MG/24 HR PATCH.TD24 ONE (14:20)
[2018-12-06] MEDS ORDERED: NICOTINE 21 MG/24 HR PATCH.TD24 TD PRN (14:29)
[2018-12-06] MEDS ORDERED: BENZOCAINE/MENTHOL SORE THROAT LOZENGE BUCCAL PRN (21:07)
[2018-12-06] MEDS: GLIMEPIRIDE 4 MG TABLET PO SCH (21:25)
[2018-12-06 23:28] LABS: CREATINE KINASE MB < 0.22 ng/mL (<4.55); TROPONIN I < 0.012 ng/mL
[2018-12-07] MEDS: GABAPENTIN 300 MG CAPSULE PO SCH ×2 (05:30→13:23)
[2018-12-07] MEDS: INSULIN LISPRO 100 UNIT/ML 3 ML VIAL SUBCUT SCH ×4 (11:19→22:08)
[2018-12-07] MEDS: ASPIRIN 81 MG TABLET, CHEWABLE PO SCH (11:27)
[2018-12-07] MEDS: CLOPIDOGREL BISULFATE 75 MG TABLET PO SCH (11:27)
[2018-12-07] MEDS: INSULIN GLARGINE,HUM.REC.ANLOG 1,000 UNIT/10 ML VIAL SUBCUT SCH ×2 (11:28→22:14)
[2018-12-07] MEDS: ISOSORBIDE MONONITRATE 20 MG TABLET PO SCH (17:52)
--- NOTE | 2018-12-07 18:41 | PDOC PROGRESS REPORT ---
Subjective Progress Note for:: 12/07/18 Subjective:: No adverse events overnight. No new complaints. Vital signs been stable. No chest pain or shortness of breath. He is frustrated because is not getting his stress test today. Not sure of the circumstances as to why it was not done today. Reason For Visit: CHEST PAIN Physical Exam Vital Signs: Temp Pulse Resp BP Pulse Ox 98.3 F 88 19 160/72 H 97 12/07/18 15:54 12/07/18 15:54 12/07/18 15:54 12/07/18 15:54 12/07/18 15:54 Intake & Output 12/06/18 12/07/18 12/08/18 06:59 06:59 06:59 Intake Total 500 1346 944 Output Total 0 Balance 500 1346 944 Weight 111.6 kg 110.8 kg General appearance: PRESENT: no acute distress, cooperative, disheveled, morbidly obese Respiratory exam: PRESENT: clear to auscultation gurjit, symmetrical, unlabored. ABSENT: accessory muscle use, crackles, prolonged expiratory phas, rhonchi, tachypnea, wheezes Cardiovascular exam: PRESENT: RRR, +S1, +S2 Pulses: PRESENT: normal carotid pulses Vascular exam: PRESENT: normal capillary refill GI/Abdominal exam: PRESENT: normal bowel sounds, soft. ABSENT: distended, guarding, rebound, tenderness Extremities exam: ABSENT: clubbing, pedal edema Musculoskeletal exam: PRESENT: normal inspection. ABSENT: deformity Neurological exam: PRESENT: alert, awake, oriented to person, oriented to place, oriented to time, oriented to situation Psychiatric exam: PRESENT: appropriate affect, normal mood Skin exam: PRESENT: dry, warm Results Laboratory Results: 12/05/18 22:35 12/05/18 22:35 12/05/18 12/06/18 12/06/18 22:35 01:25 07:54 Creatine Kinase CK-MB (CK-2) Troponin I < 0.012 < 0.012 < 0.012 12/06/18 12/06/18 21:51 21:51 Creatine Kinase 44 L CK-MB (CK-2) < 0.22 Troponin I < 0.012 Impressions: Chest X-Ray 12/05/18 22:36 IMPRESSION: No acute disease. copyright 2010 [employer]- All Rights Reserved Chest/Abdomen CTA 12/05/18 23:20 IMPRESSION: No evidence of pulmonary embolism or other acute abnormality within the chest. Pancreatic parenchymal calcifications, a finding which can be associated with chronic calcific pancreatitis. TECHNICAL DOCUMENTATION: Quality ID # 436: Final reports with documentation of one or more dose reduction techniques (e.g., Automated exposure control, adjustment of the mA and/or kV according to patient size, use of iterative reconstruction technique) copyright 2011 [employer]- All Rights Reserved Assessment and Plan - Diagnosis (1) Chest pain Qualifiers: Chest pain type: unspecified Qualified Code(s): R07.9 - Chest pain, unspecified Is this a current diagnosis for this admission?: Yes Plan: Troponins have been negative. Stress test was ordered for tomorrow. If negative, he will go home. (2) Severe obesity Is this a current diagnosis for this admission?: Yes Plan: Strongly encouraged lifestyle dietary modifications. - Time Time Spent with patient: 15-24 minutes
[2018-12-07] MEDS: ATORVASTATIN CALCIUM 80 MG TABLET PO SCH (22:09)
[2018-12-07] MEDS: GLIMEPIRIDE 4 MG TABLET PO SCH (22:14)
[2018-12-08] MEDS: ISOSORBIDE MONONITRATE 20 MG TABLET PO SCH ×2 (02:22→10:41)
[2018-12-08] MEDS: GABAPENTIN 300 MG CAPSULE PO SCH ×2 (06:23→14:38)
[2018-12-08] MEDS: INSULIN LISPRO 100 UNIT/ML 3 ML VIAL SUBCUT SCH ×2 (10:40→10:43)
[2018-12-08] MEDS: CLOPIDOGREL BISULFATE 75 MG TABLET PO SCH (10:41)
[2018-12-08] MEDS: INSULIN GLARGINE,HUM.REC.ANLOG 1,000 UNIT/10 ML VIAL SUBCUT SCH (10:41)
[2018-12-08] MEDS: ASPIRIN 81 MG TABLET, CHEWABLE PO SCH (10:43)
[2018-12-08] MEDS ORDERED: REGADENOSON INJ 0.4 MG/5 ML DISP.SYRIN IV ONE (10:52)
--- NOTE | 2018-12-08 16:48 | PDOC DISCHARGE SUMMARY ---
General - Admit/Disc Date/PCP Admission Date/Primary Care Provider: 12/06/18 03:[address] Discharge Date: 12/08/18 - Discharge Diagnosis (1) Chest pain Is this a current diagnosis for this admission?: Yes Summary: Troponins were negative, stress test was negative. Patient will resume his usual home medications. (2) Severe obesity Is this a current diagnosis for this admission?: Yes Summary: Strongly encouraged lifestyle modification. - Additional Information Resuscitation Status: Full Code Discharge Diet: Cardiac, Diabetic Discharge Activity: Activity As Tolerated Home Medications: Aspirin [Aspirin 81 mg Chewable Tablet] 81 mg PO QHS 01/14/18 Clopidogrel Bisulfate [Plavix 75 mg Tablet] 75 mg PO DAILY 01/14/18 Dulaglutide [Trulicity] 1.5 mg SQ MO@1000 01/14/18 Gabapentin [Neurontin] 1,200 mg PO QHS 01/14/18 Glimepiride [Amaryl 4 mg Tablet] 8 mg PO WSUPPER 01/14/18 Insulin Aspart [Novolog Flexpen] 0 unit SUBCUT .SLD SCALE 01/14/18 Insulin Glargine,Hum.rec.anlog [Lantus Solostar] 75 unit SQ BID 01/14/18 Losartan/Hydrochlorothiazide [Losartan-Hctz 50-12.5 mg Tab] 1 tab PO DAILY 01/14/18 Metformin HCl [Metformin HCl ER] 1,000 mg PO BIDBS 01/14/18 Metoprolol Succinate [Toprol Xl 50 mg Tab.sr] 100 mg PO DAILY 01/14/18 Multivitamin [Tab-A-Sofía] 1 tab PO DAILY 01/14/18 [place]-3 Fatty Acids/Fish Oil [Fish Oil 1,000 mg Capsule] 4,000 mg PO DAILY 01/14/18 Tamsulosin HCl [Flomax 0.4 mg Cap.sr] 0.4 mg PO Q12 01/14/18 Canagliflozin [Invokana] 300 mg PO DAILY 12/06/18 Gabapentin [Neurontin 300 mg Capsule] 300 mg PO BID@06,14 12/06/18 Glucosamine Sulfate Dipot Chlr [Glucosamine] 3,000 mg PO DAILY 12/06/18 Oxycodone HCl/Acetaminophen [Percocet 5-325 mg Tablet] 1 tab PO Q8HP PRN 12/06/18 Ranitidine HCl [Zantac 150 mg Tablet] 150 mg PO BID 12/06/18 Rosuvastatin Calcium [Crestor 20 mg Tablet] 20 mg PO QHS 12/06/18 History of Present Illness History of Present Illness: 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 Patient presents with sudden onset of right sided neck pain followed by retrosternal chest pain 3 out of 5 intensity associated with palpitations, tachycardia and diaphoresis. In the emergency room he is found to have an unremarkable work-up including CTA of the chest revealing known stable cam lymph node. While in the emergency room is had several episodes of chest pain without EKG changes or elevation in cardiac enzymes. He receives symptomatic management and a GI cocktail given history of uncontrolled GERD, excessive caffeine and tobacco dependence for likely esophageal spasm. Hospital Course Hospital Course: He was pain-free and his troponins were negative. His comorbid conditions were managed with his home medications and were not exacerbated during his hospitalization. He had a stress test which was negative. He will resume his usual home medications. His labs and examination were reassuring he was discharged in good condition. Physical Exam Vital Signs: Temp Pulse Resp BP Pulse Ox 98.0 F 83 16 155/62 H 98 12/08/18 11:54 12/08/18 11:54 12/08/18 11:54 12/08/18 11:54 12/08/18 11:54 Intake & Output 12/07/18 12/08/18 12/09/18 06:59 06:59 06:59 Intake Total 1346 1062 474 Output Total 0 Balance 1346 1062 474 Weight 110.8 kg 109.9 kg General appearance: PRESENT: no acute distress, cooperative, disheveled, morbidly obese Respiratory exam: PRESENT: clear to auscultation gurjit, symmetrical, unlabored. ABSENT: accessory muscle use, crackles, prolonged expiratory phas, rhonchi, tachypnea, wheezes Cardiovascular exam: PRESENT: RRR, +S1, +S2 Pulses: PRESENT: normal carotid pulses Vascular exam: PRESENT: normal capillary refill GI/Abdominal exam: PRESENT: normal bowel sounds, soft. ABSENT: distended, guarding, rebound, tenderness Extremities exam: ABSENT: clubbing, pedal edema Musculoskeletal exam: PRESENT: normal inspection. ABSENT: deformity Neurological exam: PRESENT: alert, awake, oriented to person, oriented to place, oriented to time, oriented to situation Psychiatric exam: PRESENT: appropriate affect, normal mood Skin exam: PRESENT: dry, warm Results Laboratory Results: 12/05/18 22:35 12/05/18 22:35 12/05/18 12/06/18 12/06/18 22:35 01:25 07:54 Creatine Kinase CK-MB (CK-2) Troponin I < 0.012 < 0.012 < 0.012 12/06/18 12/06/18 21:51 21:51 Creatine Kinase 44 L CK-MB (CK-2) < 0.22 Troponin I < 0.012 Impressions: Chest X-Ray 12/05/18 22:36 IMPRESSION: No acute disease. copyright 2010 [employer]- All Rights Reserved Chest/Abdomen CTA 12/05/18 23:20 IMPRESSION: No evidence of pulmonary embolism or other acute abnormality within the chest. Pancreatic parenchymal calcifications, a finding which can be associated with chronic calcific pancreatitis. TECHNICAL DOCUMENTATION: Quality ID # 436: Final reports with documentation of one or more dose reduction techniques (e.g., Automated exposure control, adjustment of the mA and/or kV according to patient size, use of iterative reconstruction technique) copyright 2011 [employer]- All Rights Reserved Qualifiers - * PATIENT BEING DISCHARGED WITH ANY OF THE FOLLOWING DIAGNOSIS: No Plan Time Spent: Greater than 30 Minutes
[2018-12-08 17:07] VITALS: BP 141/58
--- NOTE | 2018-12-08 18:33 | DRAGON STRESS TEST REPORT ---
Intravenous Lexiscan Cardiolite stress test using single photon emmision computerized tomography. Date of procedure: 12/08/2018. Ordering Provider: Dr. Guido Hassan.. Patient's status: In Patient. Indication: Chest pain in a patient with history of coronary artery disease and history of stent to the obtuse marginal branch in 2016. . Coronary risk factors: Age, diabetes mellitus, hypertension, dyslipidemia, tobacco abuse disorder, and family history of coronary artery disease. Resting EKG: Sinus Rhythm. Within Normal Limits. Stress EKG: No changes of ischemia. The patient had no chest pain or discomfort, and there were no arrhythmias seen. Reason for termination: Protocol. Conclusions: Normal EKG and hemodynamic response to IV Lexiscan. Nuclear data: At rest the patient was given 14.89 millicuries of technetium 99m sestamibi injected intravenously. As per protocol rest non gated SPECT images were obtained. Subsequently the patient was given intravenous Lexiscan at a dose of 0.4 mg in 5 mL intravenously, followed by flush with normal saline. Subsequently the stress dose of 45.5 millicuries of technetium 99m sestamibi was injected intravenously. As per protocol stress gated images were obtained. Nuclear interpretation: Review of images showed that all segments of the myocardium had normal perfusion at rest, and normal perfusion post stress with IV Lexiscan. All segments of the myocardium had normal motion, contraction, and thickening by gated study. T. I D. ratio was normal a 1.02 t . There is no transient ischemic dilatation of the left ventricle. Computer read rest, and stress left ventricular ejection fraction were 68 %, and 74 %, respectively. Conclusion: 1. There is no scintigraphic evidence of Lexiscan induced myocardial ischemia. 2. There is no scintigraphic evidence of myocardial infarction/scar. Recommendations: Aggressive risk factor modification, and treating the underlying co- morbidities. MTDD
== END 2018-12-08 18:40 | disposition home or self-care (01) ==
LOC: ER 22:18 → EH 12-06 03:29 → 3S 12-06 05:37 → UNDODISOB 12-06 14:00
PROVIDERS: ADMIT Internal Medicine; ATTEND Internal Medicine
DX: R07.89 Other chest pain (principal); E66.01 Morbid (severe) obesity due to excess calories; E11.40 Type 2 diabetes mellitus with diabetic neuropathy, unspecified; I10 Essential (primary) hypertension; E78.5 Hyperlipidemia, unspecified; F17.200 Nicotine dependence, unspecified, uncomplicated; I25.10 Atherosclerotic heart disease of native coronary artery without angina pectoris; M54.2 Cervicalgia; R00.2 Palpitations; R00.0 Tachycardia, unspecified; R61 Generalized hyperhidrosis; K21.9 Gastro-esophageal reflux disease without esophagitis; I25.2 Old myocardial infarction; Z95.5 Presence of coronary angioplasty implant and graft; Z79.82 Long term (current) use of aspirin; Z79.02 Long term (current) use of antithrombotics/antiplatelets; Z79.4 Long term (current) use of insulin; Z87.19 Personal history of other diseases of the digestive system; Z82.49 Family history of ischemic heart disease and other diseases of the circulatory system; Z87.11 Personal history of peptic ulcer disease
CPT/HCPCS: 93005 ×2; 96376; 99285; 96361; 96374; 36415 ×2; 82553; 82962 ×3; 82550; 85025; 80053; 84484 ×2; 93017; 71045; 78452; 71275; 93010 ×2; G0378 ×4; A9500; J2785; J1815 ×5; J3490 ×9; J2270; J7040; Q9969

== ENCOUNTER 2020-03-06 05:33 | Day surgery (SDC) | payer BC ==
[2020-03-02 11:22] LABS: ABSOLUTE BASOPHILS # (AUTO) 0.1 10^3/uL (0.0-0.2); ABSOLUTE EOSINOPHILS # (AUTO) 0.2 10^3/uL (0.0-0.6); ABSOLUTE LYMPHOCYTES (AUTO) 3.6 10^3/uL (0.5-4.7); ABSOLUTE MONOCYTES (AUTO) 0.7 10^3/uL (0.1-1.4); ABSOLUTE NEUT (AUTO) 6.6 10^3/uL (1.7-8.2); BASOPHILS % (AUTO) 0.7 % (0-2); EOSINOPHILS % (AUTO) 1.9 % (0-6); HEMATOCRIT 44.9 % (37.9-51.0); HEMOGLOBIN 15.4 g/dL (13.5-17.0); LYMPHOCYTES % (AUTO) 32.2 % (13-45); MEAN CORPUSCULAR HEMOGLOBIN 30.6 pg (27.0-33.4); MEAN CORPUSCULAR HGB CONC 34.3 g/dL (32.0-36.0); MEAN CORPUSCULAR VOLUME 89 fl (80-97); MONOCYTES % (AUTO) 6.7 % (3-13); PLATELET COUNT 288 10^3/uL (150-450); RED BLOOD COUNT 5.05 10^6/uL (4.35-5.55); RED CELL DISTRIBUTION WIDTH 13.9 % (11.5-14.0); SEGMENTED NEUTROPHILS % (AUTO) 58.5 % (42-78); TOTAL CELLS COUNTED % (AUTO) 100 %; WHITE BLOOD COUNT 11.2 10^3/uL (4.0-10.5)
[2020-03-02 11:30] LABS: INTERNATIONAL RATION (INR) 0.85; PROTHROMBIN TIME 11.6 SEC (11.4-15.4)
[2020-03-02 11:31] LABS: PARTIAL THROMBOPLASTIN TIME 28.9 SEC (23.5-35.8)
[2020-03-02 11:49] LABS: ANION GAP 8 (5-19); BLOOD UREA NITROGEN 10 mg/dL (7-20); CALCIUM 9.5 mg/dL (8.4-10.2); CARBON DIOXIDE 26 mmol/L (22-30); CHLORIDE 102 mmol/L (98-107); GLUCOSE 196 mg/dL (75-110); POTASSIUM 4.6 mmol/L (3.6-5.0)
--- NOTE | 2020-03-03 10:24 | EKG REPORT ---
SEVERITY:- NORMAL ECG - SINUS RHYTHM : Confirmed by: Luis Mary 03-Mar-2020 10:23:56
[~2020-03-06 05:33] MED LIST: DOXYCYCLINE HYCLATE 100 MG in DEXTROSE 5%-WATER 250 ML IV PRN; LACTATED RINGERS 1000 ML IV PRN; LIDOCAINE 0.5% INJ-PF (5 MG/ML) 50 ML SDV SUBCUT PRN
[2020-03-06 06:37] LABS: POTASSIUM 4.7 mmol/L (3.6-5.0)
[2020-03-06] MEDS ORDERED: ONDANSETRON HCL INJ/PF 4 MG/2 ML SDV ONE (06:56)
[2020-03-06] MEDS ORDERED: MIDAZOLAM 2 MG/2 ML INJ ONE (06:56)
[2020-03-06] MEDS ORDERED: FENTANYL CITRATE INJ/PF 100 MCG/2 ML AMPUL ONE (06:56)
[2020-03-06] MEDS ORDERED: PROPOFOL INJ 200 MG/20 ML VIAL IV ONE (06:57)
[2020-03-06] MEDS ORDERED: LIDOCAINE 2% INJ-PF (20 MG/ML) 10 ML AMPUL ONE (06:58)
[2020-03-06] MEDS ORDERED: LIDOCAINE 1%/EPINEPHRINE INJ 20 ML VIAL ONE (07:14)
[2020-03-06] MEDS ORDERED: POVIDONE-IODINE 5% OPH PREP SOLN 30 ML ONE (07:14)
[2020-03-06] MEDS ORDERED: SODIUM BICARBONATE 4.2% INJ (2.5 MEQ/5 ML) VIAL ONE (07:14)
--- NOTE | 2020-03-06 09:17 | Operative Report ---
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 POSTOPERATIVE DIAGNOSIS: Same OPERATION: Excision of squamous cell carcinoma and severe actinic keratosis from the right extended lateral canthus with frozen section margin control and reconstruction with a rotation flap SURGEON: IRENE ELLINGTON ANESTHESIA: LMAC TISSUE REMOVED OR ALTERED: Squamous cell carcinoma and actinic keratosis COMPLICATIONS: None ESTIMATED BLOOD LOSS: Minimal PROCEDURE: Patient seen and was marked prior to being brought into the operating room. Patient was brought into the operating room and placed on the operating room table in a supine position. Patient was then prepped with a Betadine scrub and Betadine solution and draped in a sterile and aseptic manner. The area was then marked. 12 O'clock was marked towards the upper eyelid 3 O'clock was marked towards the zygomatic arch 6:00 was marked towards the scalp hairline 9:00 was marked towards the forehead The area was then anesthetized with 1% lidocaine with epinephrine and bicarbonate for its anesthetic and hemostatic effects. The area was then excised and marked at 12:00. The specimen was sent for frozen section. The results came back that the deep and lateral margins were free. We had considered a primary closure but this would go against the natural relaxed skin tension lines. A primary closure would be too tight and would have increased chance of dehiscence. This will leave more of a scar so we decided to use a rotation flap reconstruction which would camouflage the scar better and take tension off of the closure so that would be less chances of complications. It was felt that by using the rotation flap we can create the least amount of tension on the lateral canthus and maintain the vertical and horizontal measurements of the eyebrow. This will allow for a more tension-free closure because a direct closure was 2 tight given we were resecting 3 areas in this 1 specimen. The rotation flap also allowed us to maintain the hairline. Then we went ahead and outlined the flap and anesthetized it. We then incised the flap and developed a flap maintaining the subdermal plexus. Then we undermined 360 to allow for plate like scarring and minimize trap door deformity. Throughout the case hemostasis was achieved with the bipolar. We then sutured the flap into its new position using 4-0 Vicryl for the subcutaneous and deep dermis. Skin was closed with a running subcuticular suture stitch using 4-0 PDS with knots being tied on the outside. And 4-0 PDS suture was used for support and placed in the central area of the incision. We then applied tincture benzoin and Steri-Strips followed by a light pressure dressing. Patient was then reversed from anesthesia and taken to the [facility] for recovery. The patient tolerated well. There were no complications. Lesion size was approximately 2.3 cm please see pathology for actual size. Portions of this note may be dictated using [employer] voice recognition software. Occasional variations and spelling and vocabulary could be possible and are unintentional. Additionally, there is a chance that some errors may not be caught or corrected. Please notify the author of any discrepancies noted or if any statements are unclear. Subjective: No complaints Objective: Vital signs stable afebrile No bleeding Dressing intact Assessment and plan: Doing well. Elevate the operative site. Resume medications. Take antibiotics for 1 day Follow-up Full instructions were given to the patient and family and they understand Portions of this note may be dictated using [employer] voice recognition software. Occasional variations and spelling and vocabulary could be possible and are unintentional. Additionally, there is a chance that some errors may not be caught or corrected. Please notify the offer of any discrepancies noted or if any statements are unclear.
--- NOTE | 2020-03-06 09:19 | Discharge Summary ---
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 Date of Surgery: 03/06/20 Condition: Good Treatment or Instructions: Leave the top dressing on for 2 days, then removed. Leave the steri-strip tapes on for 5 days, then removal. Then cleaning wound with peroxide and apply Neosporin/bacitracin 3 times per day. Antibiotics for 1 day, then discontinue. Elevate operative area to decrease swelling. Do not strain, or lift heavy objects. Call for excessive bleeding, increased temperature of 101, uncontrolled pain, or excessive nausea or vomiting. You may reach Dr. Tello through his office at [phone]. In the event of an emergency after hours, then contact Dr. Tello through [facility]. Return to the office for a postop check on . The time will be scheduled by the nursing staff of [facility] prior to discharge. Please give the patient a copy of their labs and EKG so they can bring this to their PMD. Thank you Portions of this note may be dictated using [employer] voice recognition software. Occasional variations and spelling and vocabulary could be possible and are unintentional. Additionally, there is a chance that some errors may not be caught or corrected. Please notify the offer of any discrepancies noted or if any statements are unclear. Referrals: REBEKAH WAY MD [Primary Care Provider] - Discharge Diet: As Tolerated Discharge Activity: No Lifting/Push/Pulling Report the Following to Your Physician Immediately: Unusual Bleeding - Keep head elevated. Take top dressing off in 2 days. Leave Steri-Strips on for 5 days. If they get contaminated then remove the Steri-Strips. Once the Steri-Strips are removed clean the wound with peroxide and apply bacitracin. Follow-up Thursday at scheduled appointment
[2020-03-06] MEDS ORDERED: FENTANYL CITRATE INJ/PF 100 MCG/2 ML AMPUL IV PRN ×2 (09:25)
[2020-03-06] MEDS ORDERED: OXYCODONE-ACETAMINOPHEN 5-325 MG TABLET PO PRN (09:25)
[2020-03-06] MEDS ORDERED: MORPHINE SULFATE 10 MG/ML INJ IV PRN (09:25)
[2020-03-06] MEDS ORDERED: ONDANSETRON HCL INJ/PF 4 MG/2 ML SDV IV PRN (09:25)
[2020-03-06 11:16] VITALS: BP 133/62
== END 2020-03-06 10:50 | disposition home or self-care (01) ==
LOC: OROUT 05:33
PROVIDERS: ATTEND Plastic Surgery
DX: C44.329 Squamous cell carcinoma of skin of other parts of face (principal); L57.0 Actinic keratosis; L57.8 Other skin changes due to chronic exposure to nonionizing radiation; Z79.899 Other long term (current) drug therapy; Z79.84 Long term (current) use of oral hypoglycemic drugs; Z79.4 Long term (current) use of insulin; I10 Essential (primary) hypertension; I25.2 Old myocardial infarction; E11.9 Type 2 diabetes mellitus without complications; F17.210 Nicotine dependence, cigarettes, uncomplicated; I25.10 Atherosclerotic heart disease of native coronary artery without angina pectoris; Z79.02 Long term (current) use of antithrombotics/antiplatelets; Z03.818 Encounter for observation for suspected exposure to other biological agents ruled out
CPT/HCPCS: 14040; 93005; 36415 ×2; 82947; 84132; 85025; 85610; 85730; 80048; 83036; 88305 ×2; 88331 ×2; 93010; 00300; U0003; J2250; J3490 ×5; J2405; J7060; J2704; C9803; 300; 87635; J3010

== ENCOUNTER → 2020-04-09 | Outpatient (CLI) | payer BC ==
--- NOTE | 2020-04-09 14:38 | RADIOLOGY REPORT (SQ) ---
EXAM DESCRIPTION: U/S RETROPERITON (RENAL/AORTA) IMAGES COMPLETED DATE/TIME: 04/09/2020 2:09 pm REASON FOR STUDY: R10.30 LOWER ABDOMINAL PAIN, UNSPECIFIED R10.30 LOWER ABDOMINAL PAIN, UNSPECIFIED COMPARISON: 10/04/2014 TECHNIQUE: Dynamic and static grayscale images acquired of the kidneys and bladder and recorded on P ACS. Additional selected color Doppler and spectral images recorded. LIMITATIONS: None. FINDINGS: RIGHT KIDNEY: Normal size measuring 13.5 cm. Normal echogenicity. No solid or suspicious m asses. No hydronephrosis. No calcifications. LEFT KIDNEY: Normal size measuring 13.8 cm. Normal echogenicity. No solid or suspicious masses. No h ydronephrosis. No calcifications. BLADDER: No masses. OTHER FINDINGS: No other significant finding. IMPRESSION: Unremarkable renal ultrasound. No hydronephrosis. TECHNICAL DOCUMENTATION: JOB ID: [id number] 2010 [facility]- All Rights Reserved Reading location - IP/workstation name: [email or web address]
== END ==
LOC: RAD 13:50
PROVIDERS: ATTEND Internal Medicine
DX: R10.30 Lower abdominal pain, unspecified (principal)
CPT/HCPCS: 76770

== ENCOUNTER 2020-05-17 15:44 | Emergency (ER) | payer BC ==
[2020-05-17] MEDS ORDERED: ONDANSETRON HCL INJ/PF 4 MG/2 ML SDV IV ONE (15:56)
--- NOTE | 2020-05-17 15:56 | ER Document Report ---
ED Medical Screen (RME) - General Chief Complaint: Chest Pain Stated Complaint: CHEST PAIN Time Seen by Provider: 05/17/20 15:54 Primary Care Provider: IRENE ELLINGTON MD [Primary Care Provider] - Follow up as needed Information source: Patient Notes: Patient presents with a 30-minute history of chest pain with shortness of breath. Patient complains of feeling nauseous. Patient states he feels as though his heart is beating erratically. Patient does report nausea. Patient has a history of hypertension, dyslipidemia, diabetes, CAD with previous [place]. Patient states he had a previous biodegradable stent placed. I have greeted and performed a rapid initial assessment of this patient. A comprehensive ED assessment and evaluation of the patient, analysis of test results and completion of the medical decision making process will be conducted by additional ED providers. TRAVEL OUTSIDE OF THE [place] IN LAST 30 DAYS: No - Related Data Allergies/Adverse Reactions: No Known Allergies Allergy (Verified 03/06/20 06:25) Past Medical History - Past Medical History Cardiac Medical History: Reports: Hx Heart Attack - December 2016, Hx Hypercholesterolemia - statin d/t [place], Hx Hypertension Pulmonary Medical History: Denies: Hx Asthma, Hx Bronchitis, Hx COPD, Hx Pneumonia Neurological Medical History: Denies: Hx Cerebrovascular Accident, Hx Seizures Endocrine Medical History: Reports: Hx Diabetes Mellitus Type 2 Renal/ Medical History: Denies: Hx Peritoneal Dialysis GI Medical History: Reports: Hx Gastroesophageal Reflux Disease, Hx Hiatal Hernia, Hx Ulcer - Gastric ulcer Musculoskeltal Medical History: Denies Hx Arthritis Skin Medical History: Reports Hx Cellulitis Psychiatric Medical History: Reports: Hx Anxiety Past Surgical History: Reports: Hx Cardiac Catheterization - stent, Other - Benign bladder mass removal. Denies: Hx Pacemaker - Immunizations Immunizations up to date: Yes Hx Diphtheria, Pertussis, Tetanus Vaccination: Yes Physical Exam - Respiratory Respiratory status: Tachypnea Chest status: Tender Breath sounds: Normal - Cardiovascular Rhythm: Tachycardia Heart sounds: S1 appreciated, S2 appreciated Doctor's Discharge - Discharge Referrals: IRENE ELLINGTON MD [Primary Care Provider] - Follow up as needed
--- NOTE | 2020-05-17 16:35 | RADIOLOGY REPORT (SQ) ---
EXAM DESCRIPTION: CHEST SINGLE VIEW IMAGES COMPLETED DATE/TIME: 05/17/2020 4:20 pm REASON FOR STUDY: cp COMPARISON: 12/05/2018 NUMBER OF VIEWS: One view. TECHNIQUE: Single frontal radiographic view of the chest acquired. LIMITATIONS: None. FINDINGS: LUNGS AND PLEURA: No opacities, masses or pneumothorax. No pleural effusion. MEDIASTINUM AND HILAR STRUCTURES: No masses. Contour normal. HEART AND VASCULAR STRUCTURES: Heart normal in size. Normal vasculature. BONES: No acute findings. HARDWARE: None in the chest. OTHER: No other significant finding. IMPRESSION: NO SIGNIFICANT RADIOGRAPHIC FINDING IN THE CHEST. TECHNICAL DOCUMENTATION: JOB ID: [id number] 2010 [employer]- All Rights Reserved Reading location - IP/workstation name: [email or web address]
[2020-05-17 16:54] LABS: ABSOLUTE BASOPHILS # (AUTO) 0.1 10^3/uL (0.0-0.2); ABSOLUTE EOSINOPHILS # (AUTO) 0.2 10^3/uL (0.0-0.6); ABSOLUTE LYMPHOCYTES (AUTO) 3.5 10^3/uL (0.5-4.7); ABSOLUTE MONOCYTES (AUTO) 0.7 10^3/uL (0.1-1.4); ABSOLUTE NEUT (AUTO) 7.2 10^3/uL (1.7-8.2); BASOPHILS % (AUTO) 0.6 % (0-2); EOSINOPHILS % (AUTO) 1.5 % (0-6); HEMATOCRIT 44.1 % (37.9-51.0); HEMOGLOBIN 15.1 g/dL (13.5-17.0); MEAN CORPUSCULAR HEMOGLOBIN 30.6 pg (27.0-33.4); MEAN CORPUSCULAR HGB CONC 34.2 g/dL (32.0-36.0); MEAN CORPUSCULAR VOLUME 89 fl (80-97); MONOCYTES % (AUTO) 6.2 % (3-13); PLATELET COUNT 284 10^3/uL (150-450); RED BLOOD COUNT 4.93 10^6/uL (4.35-5.55); RED CELL DISTRIBUTION WIDTH 14.8 % (11.5-14.0); SEGMENTED NEUTROPHILS % (AUTO) 61.7 % (42-78); TOTAL CELLS COUNTED % (AUTO) 100 %; WHITE BLOOD COUNT 11.6 10^3/uL (4.0-10.5)
[2020-05-17 17:14] LABS: ALBUMIN 4.4 g/dL (3.5-5.0); ALKALINE PHOSPHATASE 72 U/L (38-126); ANION GAP 11 (5-19); ASPARTATE AMINO TRANSFERASE 27 U/L (17-59); BILIRUBIN,DIRECT 0.2 mg/dL (0.0-0.4); BILIRUBIN,TOTAL 0.5 mg/dL (0.2-1.3); BLOOD UREA NITROGEN 9 mg/dL (7-20); CALCIUM 9.5 mg/dL (8.4-10.2); CARBON DIOXIDE 25 mmol/L (22-30); CHLORIDE 100 mmol/L (98-107); GLUCOSE 202 mg/dL (75-110); POTASSIUM 4.3 mmol/L (3.6-5.0); TOTAL PROTEIN 7.4 g/dL (6.3-8.2)
[2020-05-17 17:29] LABS: NT PRO BNP 53 pg/mL (<125); TROPONIN I < 0.012 ng/mL
--- NOTE | 2020-05-17 19:27 | EKG REPORT ---
SEVERITY:- OTHERWISE NORMAL ECG - SINUS TACHYCARDIA : Confirmed by: Delmi Rowland MD 17-May-2020 19:25:48
--- NOTE | 2020-05-17 19:36 | ER Document Report ---
ED Cardiac - General Chief Complaint: Chest Pain > 30 Stated Complaint: CHEST PAIN Time Seen by Provider: 05/17/20 15:54 Primary Care Provider: IRENE ELLINGTON MD [Primary Care Provider] - Follow up as needed TRAVEL OUTSIDE OF THE [place] IN LAST 30 DAYS: No - HPI Patient complains to provider of: Chest pain Is the pain a: New problem Chest pain location: Substernal Quality of pain: Sharp Chest pain radiation location: None Cardiac risk factors: Diabetes, Hypertension, Smoker, Hx [place] Positive cardiac history: Yes Associated symptoms: Lightheaded Exacerbated by: Denies Relieved by: Rest Similar symptoms previously: Yes Recently seen / treated by doctor: No Notes: Patient is a 59-year-old male with a past medical history of [place] status post dissolving stent placement 3 years ago, hypertension, diabetes, high cholesterol who presents with chest pain. Patient states symptoms began after work. He states he was talking to some people when he developed sharp chest pain. He also became nervous and developed lightheadedness. He denies any nausea or vomiting. No diaphoresis. The pain does not radiate anywhere. Currently he states pain is improved. He states he just feels pressure now. He is denying any shortness of breath or cough or recent illnesses. Patient has a ca rdiologist in [facility]. - Related Data Allergies/Adverse Reactions: No Known Allergies Allergy (Verified 03/06/20 06:25) Home Medications: eliquiz, insulin, metoprolol Past Medical History - General Information source: Patient - Social History Smoking Status: Current Every Day Smoker Frequency of alcohol use: None Drug Abuse: None Family History: Reviewed & Not Pertinent, CAD - Past Medical History Cardiac Medical History: Reports: Hx Heart Attack - December 2016, Hx Hypercholesterolemia - statin d/t [place], Hx Hypertension Pulmonary Medical History: Denies: Hx Asthma, Hx Bronchitis, Hx COPD, Hx Pneumonia Neurological Medical History: Denies: Hx Cerebrovascular Accident, Hx Seizures Endocrine Medical History: Reports: Hx Diabetes Mellitus Type 2 Renal/ Medical History: Denies: Hx Peritoneal Dialysis GI Medical History: Reports: Hx Gastroesophageal Reflux Disease, Hx Hiatal Herni a, Hx Ulcer - Gastric ulcer Musculoskeletal Medical History: Denies Hx Arthritis Skin Medical History: Reports Hx Cellulitis Psychiatric Medical History: Reports: Hx Anxiety Past Surgical History: Reports: Hx Cardiac Catheterization - stent, Other - Benign bladder mass removal. Denies: Hx Pacemaker - Immunizations Immunizations up to date: Yes Hx Diphtheria, Pertussis, Tetanus Vaccination: Yes Hx Pneumococcal Vaccination: 05/24/19 Review of Systems - Review of Systems Notes: CONSTITUTIONAL: No fever, fatigue or weight loss. SKIN: No rash. HENT: No congestion, ear pain, or sore throat. EYES: No recent vision problems or eye pain. ENDOCRINE: No polyuria or polydipsia. CARDIOVASCULAR: Positive for chest pain. RESPIRATORY: No cough, shortness of breath, congestion, or wheezing. GASTROINTESTINAL: No abdominal pain, nausea, vomiting, bloody stools or diarrhea. GENITOURINARY: No dysuria. MUSCULOSKELETAL: No joint pain or swelling. LYMPHATIC: No swollen glands. NEUROLOGIC: No seizures. No headache, focal weakness or sensory changes. HEMATOLOGIC: No unusual bruising or bleeding. PSYCHIATRIC: No depression or anxiety. Physical Exam - Vital signs Vitals: Temp Pulse Resp Pulse Ox 98.3 F 100 24 H 95 05/17/20 16:08 05/17/20 16:08 05/17/20 16:08 05/17/20 16:08 - Notes Notes: VITAL SIGNS: Within normal limits. GENERAL: No acute distress, non-toxic appearance. HEAD: Normal with no signs of head trauma. EYES: EOMI, conjunctiva normal, no discharge. EARS: Hearing grossly intact. NOSE: Normal. NECK: Normal range of motion, no tenderness, supple, no lymphadenopathy, No adenopathy, no JVD. CHEST: Clear breath sounds bilaterally. No wheezes, rales, or rhonchi. CARDIAC: Regular rate and rhythm. S1 and S2, without murmurs, gallops, or rubs. VASCULAR: No Edema. Peripheral pulses normal and equal in all extremities. ABDOMEN: Normal and soft with no tenderness. GASTROINTESTINAL: Bowel sounds normal GENITOURINARY: Normal, No tenderness LYMPATHTIC: No lymphadenopathy noted. MUSCULOSKELETAL: Good range of motion of all major joints. Extremities without clubbing, cyanosis or edema. NEUROLOGICAL: Alert and oriented x 3. No focal sensory or strength deficits. Speech normal. Follows commands appropriately. PSYCHIATRIC: Normal Affect, judgement and mood. SKIN: Normal appearance with no rashes or lesions. Course - Re-evaluation Re-evalutation: 05/17/20 19:45 Patient states the pain is improved. I did recommend he stay in the hospital for observation and cardiac work-up but he refused. He states that he has things to do in his children to take care of. He did agree to get a second troponin and a repeat EKG. Heart score is 4. Patient's repeat troponin and EKG are normal. I again advised him that he should stay in the hospital for observation and cardiac work-up based on his history but he refused. 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 Patient was given 4 baby aspirin. I gave him strict return precautions including return of pain, vomiting, nausea, any other symptoms and he verbalized understanding. 05/18/20 00:25 - Vital Signs Vital signs: Temp Pulse Resp BP Pulse Ox 98.3 F 100 17 141/57 H 95 05/17/20 16:08 05/17/20 16:08 05/17/20 20:51 05/17/20 20:51 05/17/20 20:51 - Laboratory Result Diagrams: 05/17/20 16:30 05/17/20 16:30 Laboratory results interpreted by me: 05/17/20 05/17/20 16:30 16:30 WBC 11.6 H RDW 14.8 H Sodium 135.8 L Glucose 202 H - Diagnostic Test Radiology reviewed: Image reviewed, Reports reviewed - EKG Interpretation by Me EKG shows normal: Sinus rhythm Rhythm: NSR When compared to previous EKG there are: No significant change Additional EKG results interpreted by me: 05/17/20 20:41 EKG interpreted by me. Sinus rhythm at a rate of 100. QTc 449. No acute ST changes. EKG is similar to previous. Repeat EKG interpreted by me. Sinus rhythm at a rate of 80. QTc 430. No acute ST changes. EKG is similar to previous. Discharge - Discharge Clinical Impression: Chest pain Qualifiers: Chest pain type: unspecified Qualified Code(s): R07.9 - Chest pain, unspecified Condition: Stable Disposition: HOME, SELF-CARE Instructions: Chest Pain of Unclear Cause ([facility]) Additional Instructions: Please return to the ED if your chest pain returns, any shortness of breath, nausea, any other concerning symptoms. Please call your barber shop manager first thing in the morning. Referrals: IRENE ELLINGTON MD [Primary Care Provider] - Follow up as needed
[2020-05-17] MEDS ORDERED: ASPIRIN 81 MG TABLET, CHEWABLE PO ONE (20:33)
[2020-05-17 20:54] VITALS: BP 141/57
--- NOTE | 2020-05-17 23:35 | EKG REPORT ---
SEVERITY:- NORMAL ECG - SINUS RHYTHM : Confirmed by: Delmi Rowland MD 17-May-2020 23:34:22
== END 2020-05-17 20:54 | disposition home or self-care (01) ==
LOC: ER 15:44
DX: R07.89 Other chest pain (principal); R45.0 Nervousness; R42 Dizziness and giddiness; E11.9 Type 2 diabetes mellitus without complications; I10 Essential (primary) hypertension; I25.2 Old myocardial infarction; F17.200 Nicotine dependence, unspecified, uncomplicated; Z79.01 Long term (current) use of anticoagulants; Z79.4 Long term (current) use of insulin; Z79.899 Other long term (current) drug therapy
CPT/HCPCS: 93005; 99285; 96374; 36415; 83735; 84443; 85025; 80053; 84484; 83880; 71045; 93010; J2405